=== PATIENT | male | born 1970 | race Caucasian/White ===

== ENCOUNTER 2018-08-01 17:10 | Outpatient (REF) | payer SELFPAY ==
[2018-08-01 19:44] LABS: Anion Gap 13.3 mmol/L (3-11); BUN 7 mg/dL (7-18); CO2 25.7 mmol/L (21.0-32.0); CREATININE 0.91 mg/dL (0.70-1.30); Calcium 9.4 mg/dL (8.5-10.1); Chloride 96 mmol/L (98-107); Glucose 98 mg/dL (70-100); Potassium 3.2 mmol/L (3.5-5.1); Sodium 135 mmol/L (136-145)
== END 2018-08-01 17:30 ==
LOC: NCHCN 17:10
PROVIDERS: PCP Physician Assistant; Visit Provider Physician Assistant Medical
DX: I10 Essential (primary) hypertension (principal)
CPT/HCPCS: 80048

== ENCOUNTER 2019-06-12 11:45 | Outpatient (REF) | payer SELFPAY ==
[2019-06-12 19:05] LABS: ALT 74 U/L (16-63); AST 39 U/L (15-37); Albumin 3.8 g/dL (3.4-5.0); Alkaline Phosphatase 92 U/L (46-116); Anion Gap 8.2 mmol/L (3-11); BUN 13 mg/dL (7-18); Bilirubin, Total 0.7 mg/dL (0.2-1.0); CO2 28.8 mmol/L (21.0-32.0); CREATININE 1.26 mg/dL (0.70-1.30); Calcium 9.3 mg/dL (8.5-10.1); Chloride 101 mmol/L (98-107); Glucose 151 mg/dL (70-100); Potassium 4.1 mmol/L (3.5-5.1); Sodium 138 mmol/L (136-145); Total Protein 7.5 g/dL (6.4-8.2)
== END 2019-06-12 12:05 ==
LOC: NCHCO 11:45
PROVIDERS: PCP Physician Assistant; Visit Provider Internal Medicine
DX: K76.0 Fatty (change of) liver, not elsewhere classified (principal); I10 Essential (primary) hypertension; E87.6 Hypokalemia
CPT/HCPCS: 80053

== ENCOUNTER 2019-06-27 11:51 | Outpatient (REF) | payer SELFPAY ==
[2019-06-27 19:22] LABS: Glucose 124 mg/dL (70-100)
[2019-06-27 19:58] LABS: Hemoglobin A1C 6.9 % (4.5-6.2)
== END 2019-06-27 12:11 ==
LOC: NCHCN 11:51
PROVIDERS: PCP Physician Assistant; Visit Provider Internal Medicine
DX: R73.9 Hyperglycemia, unspecified (principal)
CPT/HCPCS: 82947; 83036

== ENCOUNTER 2020-02-26 21:41 | Outpatient (REF) | payer SELFPAY ==
[2020-02-26 19:21] LABS: ALT 42 U/L (16-63); AST 32 U/L (15-37); Alkaline Phosphatase 93 U/L (46-116); BUN 14 mg/dL (7-18); Bilirubin, Total 0.4 mg/dL (0.2-1.0); CREATININE 0.94 mg/dL (0.70-1.30); Calcium 9.2 mg/dL (8.5-10.1); Chloride 98 mmol/L (98-107); Glucose 110 mg/dL (74-106); Sodium 135 mmol/L (136-145)
[2020-02-26 19:37] LABS: Calculated LDL 110 mg/dL (<100); Cholesterol 204 mg/dL (<200); HDL Cholesterol 48 mg/dL (40-60); Triglyceride 234 mg/dL (<150)
== END 2020-02-26 22:01 ==
LOC: NCHCN 21:41
PROVIDERS: PCP Physician Assistant; Visit Provider Nurse Practitioner Family
DX: I10 Essential (primary) hypertension (principal); E78.5 Hyperlipidemia, unspecified; E11.9 Type 2 diabetes mellitus without complications
CPT/HCPCS: 80053; 80061; 83036

== ENCOUNTER 2020-10-14 14:56 | Outpatient (REF) | payer OTHER, SELFPAY ==
[2020-10-15 13:41] LABS: COVID-19 RT-PCR UVMMC Result Negative (Negative)
== END 2020-10-14 14:57 | disposition home or self-care (01) ==
LOC: NCHCN 14:56
PROVIDERS: PCP Physician Assistant; Visit Provider Internal Medicine
DX: Z20.822 Contact with and (suspected) exposure to COVID-19 (principal)
CPT/HCPCS: U0003

== ENCOUNTER 2021-10-27 16:05 | Outpatient (REF) | payer OTHER, SELFPAY ==
[2021-10-27 20:17] LABS: ALT 64 U/L (16-63); AST 42 U/L (15-37); Albumin 4.1 g/dL (3.4-5.0); Alkaline Phosphatase 80 U/L (46-116); Anion Gap 10.4 mmol/L (3-11); BUN 9 mg/dL (7-18); Bilirubin, Total 0.5 mg/dL (0.2-1.0); CO2 26.6 mmol/L (21.0-32.0); CREATININE 0.9 mg/dL (0.70-1.30); Calcium 9.2 mg/dL (8.5-10.1); Chloride 93 mmol/L (98-107); Glucose 103 mg/dL (74-106); Potassium 3.2 mmol/L (3.5-5.1); Sodium 130 mmol/L (136-145); Total Protein 8.2 g/dL (6.4-8.2)
== END 2021-10-27 16:06 | disposition home or self-care (01) ==
LOC: NCHCN 16:05
PROVIDERS: PCP Physician Assistant; Visit Provider Internal Medicine
DX: I10 Essential (primary) hypertension (principal); E11.9 Type 2 diabetes mellitus without complications; K76.0 Fatty (change of) liver, not elsewhere classified; Z00.00 Encounter for general adult medical examination without abnormal findings
CPT/HCPCS: 80053

== ENCOUNTER 2022-10-21 18:11 | Outpatient (REF) | payer OTHER, SELFPAY ==
[2022-10-21 20:42] LABS: Anion Gap 9.5 mmol/L (3-11); BUN 5 mg/dL (7-18); CO2 26.5 mmol/L (21.0-32.0); Calcium 9.2 mg/dL (8.5-10.1); Chloride 97 mmol/L (98-107); Estimated GFR 91.12 (mL/min/1.73m2); Glucose 91 mg/dL (74-106); Potassium 3.9 mmol/L (3.5-5.1); Sodium 133 mmol/L (136-145)
== END 2022-10-21 18:12 | disposition home or self-care (01) ==
LOC: NCHCN 18:11
PROVIDERS: PCP Physician Assistant; Visit Provider Internal Medicine
DX: I10 Essential (primary) hypertension (principal); E66.9 Obesity, unspecified; Z00.00 Encounter for general adult medical examination without abnormal findings
CPT/HCPCS: 80048; 83036

== ENCOUNTER 2022-10-23 17:30 | Outpatient (REF) | payer OTHER, SELFPAY ==
[2022-10-23 19:31] LABS: Sodium, Urine 107 mmol/L
[2022-10-25 16:58] LABS: Osmolality, Urine 400 mOsm/kg (150-1150)
== END 2022-10-23 17:31 | disposition home or self-care (01) ==
LOC: NCHCN 17:30
PROVIDERS: PCP Physician Assistant; Visit Provider Internal Medicine
DX: E87.1 Hypo-osmolality and hyponatremia (principal)
CPT/HCPCS: 83935; 84300

== ENCOUNTER 2023-05-12 11:51 | Outpatient (REF) | payer OTHER, SELFPAY ==
[2023-05-12 20:56] LABS: Bacteria Negative HPF (Negative); C & S Indicated? No; Crystals Negative HPF (Negative); Epithelial Cells Negative HPF (Negative); Mucus Negative (Negative); RBC 0-2 HPF (0-2); WBC 0-2 HPF (0-5)
== END 2023-05-12 11:52 | disposition home or self-care (01) ==
LOC: NCHCN 11:51
PROVIDERS: PCP Physician Assistant; Visit Provider Physician Assistant
DX: R31.21 Asymptomatic microscopic hematuria (principal)
CPT/HCPCS: 81015

== ENCOUNTER 2024-04-28 18:37 | Outpatient (REF) | payer SELFPAY ==
--- OUTSIDE RECORDS SUMMARY | 2024-04-28 18:47 | XMS_ITS | Clinical Summary ---
Author Organization [facility] Address [address] [place] [address] Care Team Providers Care Log Cutter Name Role Phone Marquez Freed MD Primary Care Provider Social History Tobacco Use Types Packs/Day Years Used Date Smoking Tobacco: Never Assessed Sex and Gender Information Value Date Recorded Sex Assigned at Not on file Gender Identity Not on file Sexual Orientation Not on file Plan of Treatment Health Maintenance Due Date Last Done Comments Hepatitis C Screen 1971 Hepatitis B Vaccine (1 of 3 - 19+ 3-dose series) 09/05 COVID-19 Vaccine ( season) 2023 Care Teams Log Cutter Relationship Specialty Start Date End Date Marquez Freed MD [address] [place] [address] PCP - General 07/13/15
--- OUTSIDE RECORDS SUMMARY | 2024-04-28 18:47 | XMS_ITS | Clinical Summary ---
Author Organization [facility] Address [facility] [place] [address] Care Team Providers Care Steel Wool Machine Operator Name Role Phone Marquez Freed MD Primary Care Provider [phone] Allergies Active Allergy Reactions Criticality Noted Date Comments Sulfa (Sulfonamide Antibiotics) Medium Medications Medication Sig Dispensed Refills Start Date End Date Status citalopram (CELEXA) 20 mg tablet Take 20 mg by mouth nightly. Active losartan (COZAAR) 50 mg tabletIndications:h ypertension Take 100 mg by mouth daily. Indications: Hypertension Active verapamil (COVERA HS) 240 mg 24 hr tablet Take 240 mg by mouth nightly. Active hydroCHLOROthiazide (HYDRODIURIL) 25 mg Tablet Take 12.5 mg by mouth daily. Active Active Problems Problem Noted Date Diagnosed Date Chronic pain of both shoulders 10/19/2017 HTN (hypertension) 02/09/2013 Hand pain 12/29/2012 Follow-up examination follow ing surgery, right shoulder arhtroscopy 04/09/2011 Bilateral carpal tunnel syndrome 07/01/2010 Immunizations Name Administration Dates Next Due Influenza (Novel V1H4-14) Injectable 10/17/2009 Influenza Trivalent w/Preservative 07/06/2011 Influenza Vaccine, Whole 10/17/2009 Family History Medical History Relation Comments Cancer Neg Hx Social History Tobacco Use Types Packs/Day Years Used Date Smoking Tobacco: Never Smokeless Tobacco: Never Comments:quit chewing tobacc o 7-8yrs. ago Alcohol Use Standard Drinks/Week Comments Yes 7 (1 standard drink = 0.6 oz pur e alcohol) daily Sex and Gender Information Value Date Recorded Sex Assigned at Not on file Gender Identity Not on file Sexual Orientation Not on file Last Filed Vital Signs Vital Sign Reading Time Taken Comments Blood Pressure 126/75 11/15/2017 12:57 PM EDT Pulse 65 11/15/2017 12:57 PM EDT Temperature 36.5 ??C (97.7 ??F) 11/04/2017 12:[address] Respiratory Rate 16 11/04/2017 12:07 PM EST Oxygen Saturation 97% 11/04/2017 12:07 PM EST Inhaled Oxygen Concentration - - Weight 96.2 kg (212 lb) 11/15/2017 12:57 PM EDT Height 167.6 cm (5' 6) 11/15/2017 12:57 PM EDT Body Mass Index 34.22 11/15/2017 12:57 PM EDT Plan of Treatment Health Maintenance Due Date Last Done Comments CT Colonography 1971 Colonoscopy 1971 Colorectal Cancer Screening 1971 FIT DNA 1971 FIT 1971 Sigmoidoscopy (10 year) with FIT yearly 1971 Sigmoidoscopy 1971 HIV screen 1989 Hepatitis C Screening 1989 Lipid Screening 1989 Hepatitis B vaccine (0-59 yrs) (1) 1990 Tdap adult 1990 Tetanus vaccine 1990 Zoster vaccine (1 of 2) 2021 Covid-19 Vaccine (1 - 2022-24 season) 2023 Influenza (Flu) vaccine (1 o f 1 - Influenza standard series) 05/07/2024 07/06/2011, 10/17/2009, 10/17/2009 Advance Directives * Full Code (Latest Code Status on File) Date Activated Date Inactivated Comments 03/16/2012 9:17 AM 03/16/2012 12:23 PM Question Answer Comments Order Status: Initial Order Does patient have decision m aking capacity? Yes, Order is based on Patients wishes. * Full Code Date Activated Date Inactivated Comments 09/10/2011 12:13 PM 03/16/2012 9:17 AM Question Answer Comments Does patient have decision m aking capacity? Yes, Order is based on Patients wishes. Care Teams Steel Wool Machine Operator Relationship Specialty Start Date End Date Marquez Freed MD [address] [place] [id number] PCP - General 10/07/10
--- OUTSIDE RECORDS SUMMARY | 2024-04-28 18:47 | XMS_ITS | Encounter Summary ---
Author Organization [facility] Address [facility] [place] [address] Care Team Providers Care Title I Instructional Assistant Name Role Phone Marquez Freed MD Primary Care Provider [phone] Reason for Visit * Reason Onset Date Comments Letter Request From Patient 11/29/2017 Encounter Details Date Type Department Care Team (Late st Contact Info) Description 11/29/2017 Telephone [place] [id number] Otis Pritchard MD [facility] [place] [address] Letter Request From Patient Social History Tobacco Use Types Packs/Day Years Used Date Smoking Tobacco: Never Smokeless Tobacco: Never Comments:quit chewing tobacc o 7-8yrs. ago Alcohol Use Standard Drinks/Week Comments Yes 7 (1 standard drink = 0.6 oz pur e alcohol) daily Sex and Gender Information Value Date Recorded Sex Assigned at Not on file Gender Identity Not on file Sexual Orientation Not on file documented as of this encounter Miscellaneous Notes * Telephone Encounter - Chelsey Jesus - 11/29/2017 3:51 PM EDT Letter created, stamped and mailed. * Telephone Encounter - Grisel Herrera - 11/29/2017 2:04 PM EDT Provider last seen by? What type of letter is needed? Patient needs a letter stating he came back into care with Dr. Pritchard for his left shoulder for a pre existing condition. Patient was seen on 11.24.17 for his left shoulder. This is a workers comp injury, and workers comp will not pay unless Dr. Pritchard states this isrelated to surgery from 03.24.11. This is through [facility] - initial DOI 03/22/2009 To what address/fax#?mailed to patient's home address: [address] [place] [id number] To whose attention?Hansa, from [facility] documented in this encounter Plan of Treatment Not on file documented as of this encounter Visit Diagnoses Not on filedocumented in this encounter Care Teams Title I Instructional Assistant Relationship Specialty Start Date End Date Marquez Freed MD [address] [place] [id number] PCP - General 10/07/10 documented as of this encounter
--- OUTSIDE RECORDS SUMMARY | 2024-04-28 18:47 | XMS_ITS | Encounter Summary ---
Author Organization [facility] Address [address] [place] [address] Care Team Providers Care Tobacco Sweeper Name Role Phone Unavailable Primary Care Provider Unavailabl e Encounter Details Date Type Department Care Team (Late st Contact Info) Description 05/26/2002 7:43 EDT Hospital Encounter [facility] [address] [place], [place] [address] Sabrina Carcamo MD [address] [place] [address] [address] [place] [address] Social History Tobacco Use Types Packs/Day Years Used Date Smoking Tobacco: Never Assessed Sex and Gender Information Value Date Recorded Sex Assigned at Not on file Gender Identity Not on file Sexual Orientation Not on file documented as of this encounter Plan of Treatment Not on file documented as of this encounter Visit Diagnoses Not on filedocumented in this encounter
--- OUTSIDE RECORDS SUMMARY | 2024-04-28 18:47 | XMS_ITS | Encounter Summary ---
Author Organization [facility] Address [address] [place] [address] Care Team Providers Care Tank Truck Mechanic Name Role Phone Marquez Freed MD Primary Care Provider [phone] Encounter Details Date Type Department Care Team (Late st Contact Info) Description 10/24/2022 Lab Requisition [facility] Pathology & Laboratory Medicine - [address] [address] Outr Resulting Lab, Provider Social History Tobacco Use Types Packs/Day Years Used Date Smoking Tobacco: Never Assessed Sex and Gender Information Value Date Recorded Sex Assigned at Not on file Gender Identity Not on file Sexual Orientation Not on file documented as of this encounter Plan of Treatment Not on file documented as of this encounter Procedures Procedure Name Priority Date/Time Associated Diagnosis Comments OSMOLALITY, URINE Routine 10/23/2022 8:35 EST documented in this encounter Results * OSMOLALITY, URINE (10/23/2022 8:35 EST) Osmolality, Urine 400 150 - 1,150 mOsm/kg 10/25/2022 16:54 EST [facility] Urine URINE / Unknown 10/23/2022 8 :35 EST 10/25/2022 16:26 EST Provider Outr Resulting Lab URINALYSIS O RDERABLES [facility] [address] [place] [address] documented in this encounter Visit Diagnoses Not on filedocumented in this encounter Care Teams Tank Truck Mechanic Relationship Specialty Start Date End Date Marquez Freed MD [address] [place] [address] PCP - General 07/13/15 documented as of this encounter
--- OUTSIDE RECORDS SUMMARY | 2024-04-28 18:47 | XMS_ITS | Encounter Summary ---
Author Organization [facility] [address] Care Team Providers Care Blacksmith Apprentice Name Role Phone Marquez Freed MD Primary Care Provider [phone] Reason for Visit * Auth/Cert Specialty Diagnoses / Procedures Referred By Faustino t Referred To Contact Diagnoses CHRONIC PAIN OF BOTH SHOULDERS. LEFT SHOULDER PAIN AND WEAKNESS, EVALUATING FOR ROTATOR CUFF TEAR. Procedures PRG UNLISTED MRI PROCEDURE MRI WITH ANESTHESIA (WRVU *) Referral ID Status Reason Start Date Expiration Date Visits Re quested Visits Authorized [id number] 1 1 Encounter Details Date Type Department Care Team (Late st Contact Info) Description 11/04/2017 10:31 AM [place] [address] Eliu Duran MD [facility] [place] [address] Bhavani Gallegos CRNA [address] [place] [address] Anesthesia Record Procedure Summary Procedure Name Responsible Anesthesiologist Anesthesia Start Time Anesthesia Stop Time MRI WITH ANESTHESIA (WRVU *) (Shoulder) Eliu Duran MD 11/04/17 1031 11/04/17 1213 Events Date Time Event Comment 11/04/2017 1013 1031 AN Verify 1031 Start 1051 An Start Data 1100 Anesthesia Ready 1141 Quick Note EDH connection issues. Vitals manually entered from 4110-1030. Patient stable 1205 an stop data 1210 Recovery or ICU Handoff Nicolette ent care was transferred to the destination unit staff after review of the patient's medical history, current anesthetic/surgical status and plan, according to the Provider Handoff Checklist. 1213 Stop Meds Name Total lidocaine (PF)(cardiac) 2% IV syringe 60 mg Propofol 50 mg Propofol INF 619.01 mg Ketamine 10 mg/mL 90 mg Lactated Ringers 1,000 mL * Agents Name O2 O2 Auxiliary Flowmeter 1 * Blood No blood administrations on file. Lines, Drains, and Airways Type Details Placement Removal (RETIRED) Non-Surgical Airway Nasopharyngeal Size: 32 Fr 04/06/13 1400 by Aurelia Pan CRNA Supraglottic Oral Airway: 100 mm (5) 11/04/17 1119 by Incision shoulder; 05/04/22 ( LDA cleanup utility RA#[id number]); 1715 (LDA cleanup utility RA#[id number]) 03/24/11 0815 by 05/04/22 1715 by Natanael Dhillon Incision shoulder; 05/04/22 ( LDA cleanup utility RA#[id number]); 1715 (LDA cleanup utility RA#[id number]) 09/10/11 0817 by 05/04/22 1715 by Natanael Dhillon Incision 03/16/12; wrist; (LDA cleanup utility RA#[id number]); 1715 (LDA cleanup utility RA#[id number]) 03/16/12 0000 by Ksenia Cullen RN 05/04/22 1715 by Natanael Dhillon Incision 06/08/12; palm; 04/07 05/28 (LDA cleanup utility RA#[id number]); 1715 (LDA cleanup utility RA#[id number]) 06/08/12 0000 by Allison Barbour RN 05/04/22 1715 by Natanael Dhillon (RETIRED) Peripheral IV Line - Single Lumen 11/04/17; 1106; median vein (underside of arm), left; 20 gauge; 11/04/17; 1238 11/04/17 1106 by Bhavani Gallegos I PLATING DEPARTMENT HELPER 11/04/17 1238 by Kimberly Erickson RN documented in this encounter Social History Tobacco Use Types Packs/Day Years Used Date Smoking Tobacco: Never Smokeless Tobacco: Never Comments:quit chewing tobacc o 7-8yrs. ago Alcohol Use Standard Drinks/Week Comments Yes 67 (1 standard drink = 0.6 oz pu re alcohol) daily Sex and Gender Information Value Date Recorded Sex Assigned at Not on file Gender Identity Not on file Sexual Orientation Not on file documented as of this encounter OR Notes * Anesthesia Postprocedure Evaluation - Eliu Duran MD - 11/04/2017 12:51 PM EST [facility] Department of Anesthesiology Post-procedure Note Patient: Dale [place] Procedure Summary Date Anesthesia Start Anesthesia Stop Room / Location 11/04/17 1031 1213 [facility] / [facility] Procedure Diagnosis Surgeon Responsible Provider MRI WITH ANESTHESIA (WRVU *) (N/A Shoulder) (CHRONIC PAIN OF BOTH SHOULDERS. LEFT SHOULDER PAIN ANDWEAKNESS, EVALUATING FOR ROTATOR CUFF TEAR. ) RESOURCE, ANESTHESIA-Eliu Fitzgerald MD All Anesthesia Providers: Anesthesiologist: Eliu Duran MD PLATING DEPARTMENT HELPER: Bhavani Gallegos CRNA Most Recent Vitals: 11/04/17 1207 BP: (!) 136/98 Pulse: 77 Resp: 16 Temp: 36.5 ??C (97.7 ??F) SpO2: 97% Pain 0 (11/04/17 1207) Patient Location: PACU/[facility] Level of Consciousness: Awake and Alert Pain Management: Satisfactory Analgesia PONV: None Cardiovascular Status: At Baseline and Hemodynamically Stable Respiratory Status: At Baseline and Room Air Postoperative Fluid Status: Intravascular EUvolemia Possible Anesthetic Complications: NONE apparent at time of evaluation Final Primary Anesthesia Type: MAC (The anesthetic type performed was the same as planned.) Comments: ELIU DURAN MD * Anesthesia Preprocedure Evaluation - Eilu Duran MD - 11/04/2017 10:12 AM EST Pre-Anesthesia Evaluation for: Dale meade 47 y.o. male. Procedure(s): MRI WITH ANESTHESIA (WRVU *) Patient Active Problem List Diagnosis ??? Chronic pain of both shoulders ??? HTN (hypertension) ??? Hand pain ??? Follow-up examination following surgery, right shoulder arhtroscopy ??? Bilateral carpal tunnel syndrome Past Medical History: Diagnosis Date ??? Fatty liver ??? Hypertension Past Surgical History: Procedure Laterality Date ??? PRG UNLISTED MRI PROCEDURE 04/06/2013 MRI WITH ANESTHESIA performed by Melissa Anesthesia-Renetta at [facility] ??? PRO PARTIAL REMOVAL, CLAVICLE 03/24/2011 CLAVICULECTOMY, PARTIAL performed by SOFIE BECKFORD at [facility] ??? PRO PARTIAL REMOVAL, CLAVICLE 09/10/2011 CLAVICULECTOMY, PARTIAL performed by SOFIE BECKFORD at [facility] ??? PRO REVISE MEDIAN N/CARPAL TUNNEL SURG 03/16/2012 MEDIAN NERVE DECOMPRESSION (CARPAL TUNNEL RELEASE) performed by SOFIE BECKFORD at [facility] ??? PRO REVISE MEDIAN N/CARPAL TUNNEL SURG 06/08/2012 MEDIAN NERVE DECOMPRESSION (CARPAL TUNNEL RELEASE) performed by SOFIE BECKFORD at [facility] ??? PRO SHLDR ARTHROSCOP, EXTEN DEBRIDE 03/24/2011 ARTHROSCOPY SHOULDER DEBRIDEMENT EXTENSIVE performed by SOFIE BECKFORD at [facility] ??? PRO SHLDR ARTHROSCOP, EXTEN DEBRIDE 09/10/2011 ARTHROSCOPY SHOULDER DEBRIDEMENT EXTENSIVE performed by SOFIE BECKFORD at [facility] ??? PRO SHLDR ARTHROSCOP, PART ACROMIOPLAS 03/24/2011 ARTHROSCOPY SHOULDER, SUBACROMIAL DECOMPRESSION performed by SOFIE BECKFORD at [facility] ??? PRO SHLDR ARTHROSCOP, PART ACROMIOPLAS 09/10/2011 ARTHROSCOPY SHOULDER, SUBACROMIAL DECOMPRESSION performed by SOFIE BECKFORD at [facility] Social History Substance Use Topics ??? Smoking status: Never Smoker ??? Smokeless tobacco: Never Used Comment: quit chewing tobacco 7-8yrs. ago ??? Alcohol use 40.2 oz/week 60 Cans of beer, 7 Shots of liquor per week Comment: daily History Drug Use No Allergies Allergen Reactions ??? Sulfa (Sulfonamide Antibiotics) Medications: MAR and/or home medications have been reviewed. Physical Exam: Most Recent Vitals: 11/04/17 0953 BP: (!) 151/98 Pulse: 74 Resp: 16 Temp: 37 ??C (98.6 ??F) SpO2: 94% Body mass index is 33.52 kg/(m^2). Weight: 97.1 kg (214 lb) Airway Assessment: Mallampati: II TM distance: >3 FB Neck ROM: full Cardiovascular Assessment: Pulmonary Assessment: Dental Assessment: Misc Assessment: Anesthesia Plan: ASA 2 MAC, with a(n) intravenous induction Region - Other Informed Consent: Anesthetic plan and risks discussed with patient. Plan discussed with PLATING DEPARTMENT HELPER. PAT Staff Note documented in this encounter Plan of Treatment Not on file documented as of this encounter Visit Diagnoses Not on filedocumented in this encounter Administered Medications Inactive Administered Medications - up to 3 most recent administrations Medication Order MAR Action Action Date Dose Rate Site ketamine (KETALAR) 10 mg/mL bolus injection (Anesthesia) PRN, Starting on Roz 11/04/17 at 1118, Until Roz 11/04/17 at 1219, Anesthesia Intra-op Given 11/04/2017 11:45 AM EST 40 mg Given 11/04/2017 11:18 AM EST 50 mg lactated Ringers infusion CONTINUOUS PRN, Starting on Roz 11/04/17 at 1031, Until Roz 11/04/17 at 1219, Anesthesia Intra-op New Bag 11/04/2017 10:31 AM EST lidocaine (PF) (XYLOCAINE) 100 mg/5 mL (2 %) injection PRN, Starting on Roz 3 at 1055, Until Roz 11/04/17 at 1219, Anesthesia Intra-op, Routine Given 11/04/2017 10:55 AM EST 60 mg propofol (DIPRIVAN) 10 mg/mL bolus injection (Anesthesia) PRN, Starting on Roz 3 at 1145, Until Roz 3 at 1219, Anesthesia Intra-op Given 11/04/2017 11:45 AM EST 50 mg propofol (DIPRIVAN) infusion CONTINUOUS PRN, Starting on Roz 11/04/17 at 1055, Until Roz 11/04/17 at 1219, Anesthesia Intra-op, Routine Rate/Dose Change 11/04/2017 11:31 AM EST 50 mcg/kg/min 29.1 mL/hr Rate/Dose Change 11/04/2017 11:20 AM EST 75 mcg/kg/min 43. 7 mL/hr Rate/Dose Change 11/04/2017 11:18 AM EST 100 mcg/kg/min 58 .3 mL/hr documented in this encounter Care Teams Blacksmith Apprentice Relationship Specialty Start Date End Date Marquez Freed MD [address] [place] [id number] PCP - General 10/07/10 documented as of this encounter
--- OUTSIDE RECORDS SUMMARY | 2024-04-28 18:47 | XMS_ITS | Encounter Summary ---
Author Organization [facility] Address [facility] [place] [address] Care Team Providers Care Cane Weigher Helper Name Role Phone Marquez Freed MD Primary Care Provider [phone] Reason for Visit * Reason Comments Bilateral Shoulder Pain Encounter Details Date Type Department Care Team (Late st Contact Info) Description 11/15/2017 1:00 PM EDT Office [place] [id number] Otis Pritchard MD [facility] [place] [address] Chronic left shoulder pain (Primary Dx); Carpal tunnel syndrome, bilateral Social History Tobacco Use Types Packs/Day Years [...] on file documented as of this encounter Last Filed Vital Signs Vital Sign Reading Time Taken Comments Blood Pressure 126/75 11/15/2017 12:57 PM EDT Pulse 65 11/15/2017 12:57 PM EDT Temperature - - Respiratory Rate - - Oxygen Saturation - - Inhaled Oxygen Concentration - - Weight 96.2 kg (212 lb) 11/15/2017 12:57 PM EDT Height 167.6 cm (5' 6) 11/15/2017 12:57 PM EDT Body Mass Index 34.22 11/15/2017 12:57 PM EDT documented in this encounter Progress Notes * Otis Pritchard MD - 11/15/2017 1:00 PM EDT Otis Pritchard dictating orthopedic consultation on Dale Quiroga returns for recheck of his left shoulder. Further discussion with him reveals that he has increased pain when he attempts abduction. 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 It is very difficult for him to do any overhead activities with his left arm.He also has intermittent numbness in his left hand. 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 Examination today: Neurologic exam: Neck no midline tenderness decreased range of motion negative Spurling's test no evidence of myelopathy decreased sensibility median nerve distribution of both hands status post carpal tunnel releases. Musculoskeletal exam left shoulder: No pain at the AC joint. He does have subacromial pain. His total active elevation is 160?? but his abduction is limited to 100?? and painful. His external rotation is 45??. 5 out of 5 strength with supraspinatus, infraspinatus, subscapularis testing. He does have positive Yergason's positive Speed. Left elbow wrist and hand are nontender again he status post left carpal tunnel release with decreased sensibility in the median nerve distribution. Vascularity intact. I reviewed the x-rays and MRI of his left shoulder. They reveal partial- thickness supraspinatus andsubscapularis tendon tendons. He also has significant biceps tendinopathy. He also has an element of early glenohumeral arthritis. Plan we long discussion regarding the current situation. Reviewed his history, clinical examination, and studies. At this point he does not want to take nonsteroidal anti-inflammatory medications because of potential hepatic interaction. Thus we discussed as another option a left shoulder glenohumeral steroid injection. He would like to try that and we will place the order today. In addition he will obtain a cock-up splint for his left hand is he does not want to consider reexploration of his left median nerve at this point. He is going to see how he does over the next 2-3 months. If his left shoulder and/or his left hand did not improve to his satisfaction he will call us and return. At that point I would anticipate either proceeding with a left shoulder arthroscopy or a left median nerve decompression for recurrent median nerve entrapment. Thank you documented in this encounter Plan of Treatment Not on file documented as of this encounter Results * XR Fluoro Guided Joint Injection Large Left (11/30/2017 10:29 AM EDT) Anatomical Region Laterality Modality Left Radio Fluoroscop y Impressions 11/30/2017 12:31 PM EDT Uneventful left shoulder glenohumeral joint injection under fluoroscopy. Resident/Fellow: None Attending: There was no attending present for this procedure Procedure performed by Gerson Roberson APRN Narrative 11/30/2017 12:31 PM EDT HISTORY: PAIN,POST-TRAUMATIC OA LEFT SHOULDER GLENOHUMERAL JOINT INJECTION UNDER FLUOROSCOPY TECHNIQUE: After an extensive conversation with the patient regarding risks and benefits, oral and written consent were obtained.? A pre- procedural time-out was performed, including review of the patient's relevant electronic medical record and allergies, as per [facility] protocol. The patient was placed supine on the fluoroscopic table. ??The skin overlying the left anterior shoulder was prepped and draped in the usual aseptic manner. 1% Lidocaine was used to achieve local anesthesia. Under fluoroscopic guidance, 22 gauge 3.5 spinal needle was advanced into the joint space. ??Small amount of air was injected to document needle placement. ??A mixture of Ropivacaine and triamcinolone acetonide was injected. All needles removed at end of procedure. FINDINGS: 1. ??Small amount of injected air in the left shoulder glenohumeral joint space. 2. ??PAIN SCORE: ??Before: 5/10 ??After: 5/10 3. Fluoroscopy time: 0.12 minutes 4. Medications: ??Lidocaine 1% - <5 ml, for subcutaneous anesthesia ??Ropivacaine HCL ??0.5% -3ml ??Triamciolone Acetonide ??- 40 mg COMPLICATIONS: ??None immediate. POST-PROCEDURE CARE: Information regarding monitor of infection, post- procedural pain and management of steroid flare were reviewed with patient. Procedure Note Gesron Roberson APRN - 11/30/2017 HISTORY: PAIN,POST-TRAUMATIC OA LEFT SHOULDER GLENOHUMERAL JOINT INJECTION UNDER FLUOROSCOPY TECHNIQUE: After an extensive conversation with the patient regarding risks andbenefits, oral and written consent were obtained.? A pre- procedural time-out was performed, including review of the patient's relevant electronic medicalrecord and allergies, as per [facility] protocol. The patient was placed supine on the fluoroscopic table. The skinoverlying the left anterior shoulder was prepped and draped in the usual aseptic manner.1% Lidocaine was used to achieve local anesthesia. Under fluoroscopicguidance, 22 gauge 3.5 spinal needle was advanced into the joint space. Small amountof air was injected to document needle placement. A mixture of Ropivacaine and triamcinolone acetonide was injected. All needles removed at end ofprocedure. FINDINGS: 1. Small amount of injected air in the left shoulder glenohumeral jointspace. 2. PAIN SCORE: Before: 5/10 After: 5/10 3. Fluoroscopy time: 0.12 minutes 4. Medications: Lidocaine 1% - <5 ml, for subcutaneous anesthesia Ropivacaine HCL 0.5% -3ml Triamciolone Acetonide - 40 mg COMPLICATIONS: None immediate. POST-PROCEDURE CARE: Information regarding monitor of infection, post- procedural pain and management of steroid flare were reviewed withpatient. IMPRESSION Uneventful left shoulder glenohumeral joint injection under fluoroscopy. Resident/Fellow: None Attending: There was no attending present for this procedure Procedure performed by Gerson Roberson APRN 12:31 PM Otis Pritchard MD IMG FLUORO ORDERABLE S documented in this encounter Visit Diagnoses Diagnosis Chronic left shoulder pain- Primary Pain in joint, shoulder region Carpal tunnel syndrome, bilateral Carpal tunnel syndrome Chronic left shoulder pain Pain in joint, shoulder region documented in this encounter Care Teams Cane Weigher Helper Relationship Specialty Start Date End Date Marquez Freed MD [address] [address] PCP - General 10/07/10 documented as of this encounter
--- OUTSIDE RECORDS SUMMARY | 2024-04-28 18:47 | XMS_ITS | Data Portability ---
Author Organization [place] [facility] Address [address] [place] [address] Care Team Providers Care Manager Php Name Role Phone NADIA FREED Primary Care Provider Assessment No assessment recorded. 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 09:00A M Not available Not available Not available Annual Wellness Exam 2024 10:00A M Not available Not available Not available Lab influenza virus A + B + SARS-CoV- 2 (COVID19) Ag panel, rapid IA, upper respirato ry specimen [email or web address] [place] [address], [address] [place] [address] [address], [place], [address], 09/21/2023 10:05:00 PSA, serum or plasma 2023 024 [email or web address] [facility] (Registration ), [address] [place] [address] [place], [address], 04/28/2024 16:11:51 BMP, serum or plasma 2023 024 [email or web address] [facility] (Registration ), [address] [place] [address] [place], [address], 04/28/2024 16:11:51 hemoglobi n A1C, fingersti ck [email or web address], [address] [place] [address] [facility] [address], [place], [address], 04/28/2024 15:07:53 ALT (alanine aminotran sferase), serum or plasma [email or web address] [facility] (Registration ), [address] [place] [address] [place], [address], 04/28/2024 16:11:51 CK (creatine kinase), total, serum [email or web address] [facility] (Registration ), [address] [place] [address] [place], [address], 04/28/2024 16:11:51 lipid panel, serum [email or web address] [facility] (Registration ), [address] [place] [address] [place], [address], 04/28/2024 16:11:51 Referral None recorded. Procedures None recorded. Surgeries None recorded. Imaging None recorded. Medication Orders amoxicill in 875 mg tablet [address], [address], [place], [place], [id number], 02/15/2024 14:30:56 benzonata te 100 mg capsule [address], [address], [place], [place], [id number], 02/15/2024 14:31:08 tobramyci n 0.3 %-dexamet hasone 0.1 % eye drops,[facility] 2023 024 [facility] [address], [address] [place] [address], [address], 04/28/2024 15:02:15 Patient TargetsNo targets recorded. Patient Instructions Encounter Date Encounter Id Patient Instructions Last Modified By Organization Details Last Modified Time 09/21/2023 [id number] Push fluids take it easy, use your flonase and try the benzonatate for the cough. Start the antibiotic today. If no improvement or feeling worse please return to the [place] [id number] Not available 09/21/2023 09:56:45 Reason for Referral None Reported. Results Created Date Observation Date Name Description Value Unit Range Abnormal Flag LastModifiedBy Organization Detail LastModifiedTime 09/21/19 24 09/21/2023 influ sergo virus A + B + SARS- CoV-2 (COVI D19) Ag panel , rapid IA, upper respi rator y speci men Influenza A negati ve Not Available [address] [address], [place], [address], 09/21/2023 09:38:55 09/21/19 24 09/21/2023 influ sergo virus A + B + SARS- CoV-2 (COVI D19) Ag panel , rapid IA, upper respi rator y speci men Influenza B negati ve Not Available [facility] [address] [address], [place], [address], 09/21/2023 09:38:55 09/21/19 24 09/21/2023 influ sergo virus A + B + SARS- CoV-2 (COVI D19) Ag panel , rapid IA, upper respi rator y speci men SARS-COV-2 negati ve Not Available [address] [address], [place], [address], 09/21/2023 09:38:55 04/28/20 24 04/28/2024 hemog lobin A1C, finge rstic k hemoglobin A1C 6.6 % <5.7 Not Available [address] [address], [place], [address], 04/28/2024 14:35:17 Result Notes None recorded. Problems Name Status Onset Date Resolution Date Notes Provider Name and Address Organization Details Recorded Time Hyperlipidemi a Active 2001 Problem Code: E78.5; Problem Code Type: ICD-10; Not Available [facility] 3 05:24:17 Shoulder joint pain Active 2005 Problem Code: M25.519; Problem Code Type: ICD-10; Not Available [facility] 3 05:24:17 Essential hypertension Active 201003/25/2023 - Comments only - Nadia Freed MD - Inadequate control though there has been some improvement. I think he needs to be back on the thiazide. He did not tolerate chlorthalidon e but hydrochloroth iazide may be just enough. He has a DOT physical coming up. He has a degree of whitecoat hypertension and has legitimate concerns about failing the DOT because of this. I am recommending he take a dose of beta-lukas on that day only. In general I do not think you will tolerate the beta-blockers on a regular basis due to fatigue. He should continue to keep a record and get that to me. Problem Code: I10; Problem Code Type: ICD-10; Not Available [facility] 3 05:24:17 Gastro-esopha geal reflux disease with esophagitis Active 2005 Problem Code: K21.0; Problem Code Type: ICD-10; Not Available [facility] 3 05:24:17 History of musculoskelet al disease Active 2011 Not Available [facility] 3 05:24:17 Steatosis of liver Active 201410/28/2021 - Comments only - Nadia Freed MD - Continue efforts at calorie and alcohol reduction and recheck LFTs now. Problem Code: K76.0; Problem Code Type: ICD-10; Not Available [facility] 3 05:24:17 General symptom Active 201410/14/2020 - Comments only - Nadia Freed MD - Again recommended reduction Problem Code: R68.89; Problem Code Type: ICD-10; Not Available [facility] 3 05:24:17 Acute upper respiratory infection Completed 201510/31/2015 Problem Code: J06.9; Problem Code Type: ICD-10; Not Available [facility] 3 05:24:17 Pneumonia Completed 201608/12/2017 Problem Code: J18.9; Problem Code Type: ICD-10; Not Available [facility] 3 05:24:18 Chronic sinusitis Completed 201507/31/2016 Problem Code: J32.9; Problem Code Type: ICD-10; Not Available [facility] 3 05:24:18 Acute sinusitis Completed 201509/23/2016 Problem Code: J01.90; Problem Code Type: ICD-10; Not Available [facility] 3 05:24:18 Paresthesia Active 2016 Problem Code: R20.2; Problem Code Type: ICD-10; Not Available [facility] 3 05:24:18 Bronchitis Completed 201702/08/2018 12/28/2017 - Comments only - Dev Ocasio PA-C - Bronchitis with recent hemoptysis. Update chest x-ray. Start antibiotics and steroids. Has done well with this in the past. Recheck if not improving in 3-5 days. Vital signs stable. Problem Code: J40; Problem Code Type: ICD-10; Not Available [facility] 3 05:24:18 Hypokalemia Completed 201806/13/2019 Problem Code: E87.6; Problem Code Type: ICD-10; Not Available [facility] 3 05:24:18 Type 2 diabetes mellitus without complication Active 201806/15/2022 - Comments only - Nadia Freed MD - A1c down to nearly normal levels. He has changed his diet somewhat although he has not lost much weight. He can stop metformin now, though I warned him he will likely have to resume it in the future if he does not lose more weight. Problem Code: E11.9; Problem Code Type: ICD-10; Not Available [facility] 3 05:24:18 Adult health examination Active 201910/28/2021 - Comments only - Nadia Freed MD - He had his original 2 Covid shots but declines any boosters, declines all other vaccines now. Problem Code: Z00.00; Problem Code Type: ICD-10; Not Available [facility] 3 05:24:19 Obesity Active 201908/15/2020 - Comments only - Nadia Freed MD - Arrange biggest problem is deconditionin g and he is well aware of it. However he is tries to set out roadblocks anytime we talked about addressing this. Starts work early but is down by about 230 and he could make time to walk them. He has a treadmill and is willing to try that. I made out a progressive schedule and explained how to do appropriate warm up and cool down. I was worried about calf pain representing claudication but it is pretty clear that it does not. His pulses are quite brisk, and it should not take an hour or 2 for claudication and resolve once he stops walking. Problem Code: E66.9; Problem Code Type: ICD-10; Not Available [facility] 3 05:24:19 Rosacea Active 202010/14/2020 - Comments only - Nadia Freed MD - Discussion of various ways to manage different aspects of this. Recommend baby shampoo scrubs of the lids to reduce the crustiness. He does not care so much about the acting portion so I am not prescribing erythromycin at this time. Problem Code: L71.9; Problem Code Type: ICD-10; Not Available [facility] 3 05:24:19 Exposure to communicable disease Completed 202010/15/2020 10/14/2020 - Comments only - Nadia Freed MD - Nasal swab sent Problem Code: Z20.828; Problem Code Type: ICD-10; Not Available [facility] 3 05:24:19 Allergic rhinitis Active 202001/11/2023 - Comments only - Nadia Freed MD - Discussed trying a saline rinse including a small amount of one of the topical preps like fluticasone. However in the absence of more severe symptoms I do not think he needs to initiate this now. Problem Code: J30.9; Problem Code Type: ICD-10; Not Available [facility] 3 05:24:19 Dyspnea Active 202003/12/2021 - Comments only - Nadia Freed MD - Is worrisome to me that this is a relatively abrupt change for Dale. That makes me worry about the possibility of coronary disease although he does not have chest pain. EKG today normal, no signs of recent SC. Will refer him for stress testing. If his dyspnea continues I would also get PFTs; he has had enough occupational exposure to be some risk for silicosis. Problem Code: R06.09; Problem Code Type: ICD-10; Not Available [facility] 3 05:24:19 Injury of head Completed 202112/06/2021 12/05/2021 - Comments only - Joselin MANJARREZ - - pt refuses any imaging, discussed s/s to present to ER such as sudden headache, vision changes, n/v, gait abnormality or mental status changes - benign exam, suspect that he became hypotensive upon jumping out of bed quickly resulting in him passing out. advised for him to increase his water intake and move slowly when changing positions. he has been losing weight so he may end up needing to have his BP medication adjusted if he continues to struggle with feeling off balanced. His BP was well controlled today, not too low at all. Problem Code: S09.90xA; Problem Code Type: ICD-10; Not Available [facility] 3 05:24:19 Posterior rhinorrhea Active 202106/15/2022 - Comments only - Nadia Freed MD - He tried nearly everything. Taking loratadine regularly plus azelastine nasal spray. That dries out his nose but never seems to stop the postnasal drip. He does not have headache or severe sinus congestion. No hoarseness. Suspect that he has some chronic sinus inflammation and the sprays are getting out them. Symptoms are not bad enough for him to desire ENT referral or consideration of a Baker-Ulices. He does use a Maria Isabel pot at times and I am can have him try putting the azelastine into that, 4 sprays in the patch which he then uses on both sides. Problem Code: R09.82; Problem Code Type: ICD-10; Not Available [facility] 3 05:24:20 Cough Completed 202209/16/2022 09/15/2022 - Comments only - Joselin MANJARREZ - Negative for COVID and flu as expected. Benign exam. Patient is likely experiencing a postviral cough. Prescription for Tessalon Perles 3 times a day as needed for cough. Recommended to stop Coricidin [id number] ter. Prescription for albuterol inhaler as needed for shortness of breath as he may be experiencing some cold induced bronchospasm when he goes outside. Plenty of rest and fluids. Follow-up if not proving or worsening symptoms. Problem Code: R05.8; Problem Code Type: ICD-10; [facility] [address], [place], [address] , [facility] 4 11:13:03 Chronic maxillary sinusitis Active 202210/21/2022 - Comments only - Nadia Freed MD - As above. He also tried a Tony pot but it did not relieve any symptoms. Problem Code: J32.0; Problem Code Type: ICD-10; Not Available [facility] 3 05:24:20 Hypo-osmolali ty and or hyponatremia Active 2022 Problem Code: E87.1; Problem Code Type: ICD-10; Not Available [facility] 3 05:24:20 Gastroesophag eal reflux disease Completed 200506/02/2023 Problem Code: 530.81; Problem Code Type: ICD-9; Not Available [facility] 3 05:24:29 Blood chemistry outside reference range Completed 201406/02/2023 03/31/2017 - Comments only - Dev Ocasio PA-C - We will recheck liver function tests. Problem Code: 790.6; Problem Code Type: ICD-9; Not Available [facility] 3 05:24:30 History and physical examination, administrativ e Completed 202010/22/2022 Problem Code: Z02.9; Problem Code Type: ICD-10; Not Available [facility] 3 05:24:33 Acute bronchitis Completed 201803/03/2020 Problem Code: J20.9; Problem Code Type: ICD-10; Not Available [facility] 3 05:24:34 Hyperglycemia Completed 201806/02/2023 Problem Code: R73.9; Problem Code Type: ICD-10; Not Available [facility] 3 05:24:34 General examination of patient Completed 201510/14/2020 Problem Code: Z00.8; Problem Code Type: ICD-10; Not Available [facility] 3 05:24:35 Dyspnea Completed 201603/03/2020 Problem Code: R06.00; Problem Code Type: ICD-10; Not Available [facility] 3 05:24:37 Cough Completed 201610/21/2017 Problem Code: R05; Problem Code Type: ICD-10; [address], [place], [address] , [facility] 4 11:13:03 Liver function tests outside reference range Completed 201406/02/2023 Problem Code: R94.5; Problem Code Type: ICD-10; Not Available [facility] 3 05:24:38 Carpal tunnel syndrome Completed 201106/02/2023 Problem Code: 354.0; Problem Code Type: ICD-9; Not Available [facility] 3 05:24:39 Hypertensive disorder Completed 201006/02/[address] [facility] 3 05:24:41 Pre-surgery evaluation Completed 201710/14/2020 Problem Code: Z01.818; Problem Code Type: ICD-10; Not Available [facility] 3 05:24:44 Alcohol abuse Completed 201406/02/2023 Problem Code: 305.00; Problem Code Type: ICD-9; Not Available [facility] 3 05:24:49 Headache Completed 201803/03/2020 Problem Code: R51; Problem Code Type: ICD-10; Not Available [facility] 3 05:24:49 History and physical examination, administrativ e Completed 202205/29/2023 05/12/2023 - Comments only - Joselin MANJARREZ - 1 year card issued due to hypertension and diabetes. He did have trace hemolyzed blood and recommended to follow-up with PCP about this. Problem Code: Z02.9; Problem Code Type: ICD-10; Not Available [facility] 4 05:37:14 Seborrheic dermatitis Active 202207/12/2023 - Comments only - Nadia Freed MD - Great from this is causing the eye irritation. Recommend daily eye scrubs plus ketoconazole shampoo once per week. Problem Code: L21.9; Problem Code Type: ICD-10; Not Available [facility] 4 05:37:14 Asymptomatic microscopic hematuria Completed 202206/11/2023 Problem Code: R31.21; Problem Code Type: ICD-10; Not Available [facility] 4 05:37:14 Acute right otitis media Active 2023 [facility] [address], [place], [address] , [facility] 4 09:54:32 Cough Active 202309/15/2022 - Comments only - Joselin MANJARREZ - Negative for COVID and flu as expected. Benign exam. Patient is likely experiencing a postviral cough. Prescription for Tessalon Perles 3 times a day as needed for cough. Recommended to stop Coricidin gbvo-uua-fozm ter. Prescription for albuterol inhaler as needed for shortness of breath as he may be experiencing some cold induced bronchospasm when he goes outside. Plenty of rest and fluids. Follow-up if not proving or worsening symptoms. Problem Code: R05.8; Problem Code Type: ICD-10; [address], [place], [address] , [facility] 4 11:13:03 Chronic conjunctiviti s Active [address], [place], [address] , [facility] 4 15:00:58 Problem Notes None recorded. Medical Equipment None Reported. Allergies Allergen ID Allergen Name Allergen Category Reaction Reaction Severity Criticality Documentation Date Start Date Code Code System Note Provider Name and Address Organization Details Recorded Time sulfadiaz ine medicatio n other moderate Not available 07/16/20232006 23129 RxNorm No react ion enter ed [facility] 4 18:17:10 01347 codeine medicatio n other moderate Not available 07/16/20232005 2670 RxNorm INTOL [facility] 4 18:16:31 11679 Tdvax medicatio n other severe Not available 01/12/20242021 49743 30 RxNorm No react ion enter ed [facility] 4 18:18:16 79062 verapamil medicatio n other mild Not available 01/12/20242019 76154 RxNorm low energ y and inc recta l bleed ing [facility] 4 18:20:19 Medications Name Sig Start Date Stop Date Status Note LastModified by Organization Details LastModified Time losartan 50 mg tablet 1 tab qd 07/27 completed Not Available Not Available Not Available amoxicill in 500 mg capsule Two caps twice per day for 4 weeks 01/11 completed Not Available Not Available Not Available terconazo le 0.4 % vaginal cream APPLY DAILY 12/26 completed Not Available Not Available Not Available clonidine HCl 0.1 mg tablet Take 1 tab by mouth twice daily 10/14 completed Not Available Not Available Not Available prednison e 10 mg tablet take 4 tablets at once daily for 3 days take 3 tablets at once daily for 3 days take 2 tablets at once daily for 3 days take 1 tablet daily for 3 days 07/17 completed Not Available Not Available Not Available Protonix 40 mg tablet,de layed release 1 qd 12/19 completed Not Available Not Available Not Available ketoconaz ole 2 % shampoo SHAMPOO AND LATHER AFFECTED AREA(S) ONCE PER WEEK TO CONTROL SEBORRHE A active Not Available Not Available No t Available diltiazem ER 180 mg capsule,2 4 hr,extend ed release Take 1 capsule by mouth once a day 02/25 completed Not Available Not Available Not Available azithromy yudi 250 mg tablet Take 2 tablet by mouth single dose now, then take 1 tablet by mouth daily for the next 4 days 02/14 completed Not Available Not Available Not Available ibuprofen 800 mg tablet 1 three times daily 12/19 completed Not Available Not Available Not Available Flonase 50 mcg/DOSE nasal inhaler 2 SPRAY daily 11/06 completed Not Available Not Available Not Available Prilosec 20 mg capsule,d elayed release 1 TAB QD 09/22 completed Not Available Not Available Not Available methyldop a 250 mg tablet Take 1 tablet by mouth twice a day 03/12 completed Not Available Not Available Not Available metformin 850 mg tablet Take 1 tablet by mouth once a day 2022 active Not Available Not Available Not Avai lable Biaxin 500 mg tablet 1 TAB BID 09/08 completed Not Available Not Available Not Available chlorthal idone 25 mg tablet Take 1/2 tablet by mouth once a day Pt cut dosin half 07/08/22 due to LH /foggine ss 10/21 completed Not Available Not Available Not Available fexofenad ine 180 mg tablet Take 1 by mouth daily 06/30 completed Not Available Not Available Not Available triamcino lone acetonide 0.1 % topical cream Apply a small amount to affected area once a day as needed 2023 active Not Available Not Available Not Avai lable amoxicill in 500 mg tablet 1 CAP TID 01/13 completed Not Available Not Available Not Available amoxicill in 875 mg tablet Take 1 tablet every 12 hours by oral route. 02/14 completed Not Available Not Available Not Available citalopra m 20 mg tablet 1 tab daily 2023 active Not Available Not Available Not Avai lable amlodipin e 10 mg tablet 1 TAB QD 10/11 completed Not Available Not Available Not Available benzonata te 100 mg capsule Take 1 capsule by mouth three times a day as needed for cough 02/14 completed Not Available Not Available Not Available Cipro 500 mg tablet 1 tab Q 12 hrs 01/02 completed Not Available Not Available Not Available lisinopri l 10 mg tablet 1 QD 08/25 completed Not Available Not Available Not Available Keflex 500 mg tablet 1 four times daily 12/26 completed Not Available Not Available Not Available metoprolo l tartrate 50 mg tablet Take one tab, 4 hours before your DOT 2022 active Not Available Not Available Not Avai lable methyldop a 500 mg tablet Take 1 tablet by mouth twice a day 03/19 completed [facility]avail[facility] ble at [facility], new script to Luis Enrique Not Available Not Available Not Available verapamil ER (SR) 240 mg tablet,ex tended release Take 1 by mouth daily 03/22 completed Not Available Not Available Not Available hydrochlo rothiazid e 25 mg tablet Take 1/2 tablet by mouth once a day try half of tab per TC on 04/08/2023 ) 04/17 completed Not Available Not Available Not Available Levaquin 500 mg tablet Take 1 tab by mouth daily 07/20 completed Not Available Not Available Not Available azelastin e 137 mcg (0.1 %) nasal spray Sells 1-2 spray into both nostrils twice a day 09/15 completed Not Available Not Available Not Available Cheratuss in AC 10 mg-100 mg/5 mL oral liquid Take 5-10 ML twice daily for cough 10/21 completed Not Available Not Available Not Available ibuprofen 600 mg tablet 1tab tid 02/23 completed Not Available Not Available Not Available Dyazide 37.5 mg-25 mg capsule Take 1 capsule by mouth once a day 01/22 completed Not Available Not Available Not Available albuterol sulfate HFA 90 mcg/actua tion aerosol inhaler Inhale 2 puff using inhaler every four to six hours as needed For coughing fits, shortnes s of breath or wheeze. 2022 active Not Available Not Available Not Avai lable fluocinon marilyn 0.05 % topical cream Apply to skin twice a day as needed 05/13 completed Not Available Not Available Not Available losartan 100 mg tablet Take 1 1/2 tablet by mouth once a day 04/28 completed Not Available Not Available Not Available fluticaso ne propionat e 50 mcg/actua tion nasal spray,darrian pension Sells 2 spray into both nostrils once a day 04/23 completed Not Available Not Available Not Available doxycycli ne hyclate 100 mg tablet Take 1 tab by mouth twice daily Fill at IP 01/04 completed Not Available Not Available Not Available loratadin e 10 mg tablet Take 1 tablet by mouth once a day as needed 04/28 completed Not Available Not Available Not Available spironola ctone 50 mg tablet one tab daily PO 04/28 completed Not Available Not Available Not Available amoxicill in 875 mg-potass ium clavulana te 125 mg tablet take one tablet twice daily for 7 days 07/13 completed Not Available Not Available Not Available tobramyci n 0.3 %-dexamet hasone 0.1 % eye drops,darrian pension INSTILL 1 DROP INTO both EYE BY three times per day until gone 2023 active Not Available Not Available Not Avai lable Augmentin 875 mg tablet 1 TAB twice daily 11/16 completed Not Available Not Available Not Available Robitussi n A-C 1-2 tsp. q4-6h prn cough 08/25 completed Not Available Not Available Not Available Xopenex HFA 08/12 completed Medicati onName: 'XOPENEX HFA 15gm'; Not Available Not Available Not Available Bystolic 5 mg tablet 1 TAB DAILY 06/07 completed Not Available Not Available Not Available Breo Ellipta 100 mcg-25 mcg/dose powder for inhalatio n 1 puff daily 08/01 completed Not Available Not Available Not Available K-Tab 20 mEq tablet,ex tended release Take 1 tab by mouth daily 08/15 completed Not Available Not Available Not Available Lorcet (hydrocod one) 5 mg-325 mg tablet 1 tab q4 hours 07/25 completed Not Available Not Available Not Available Vitals Date Recorded Body height Body temperature Oxygen saturation Oxygen saturation in Arterial blood by Pulse oximetry Heart rate Respiratory rate Systolic blood pressure Diastolic blood pressure Provider Name and Address Organization Details Last Updated DateTime 4 167.64 cm 97.7 [degF] 97 % 97 % 62 /min 18 /min 140 mm[Hg] 80 mm[Hg] MEGHAN AGUERO LPN [facility] 4 09:37:45 Date Recorded Body height Body mass index (BMI) Body weight Oxygen saturation Oxygen saturation in Arterial blood by Pulse oximetry Heart rate Systolic blood pressure Diastolic blood pressure Provider Name and Address Organization Details Last Updated DateTime 4 167.64 cm 34.8 kg/m2 14056.5 1 g 97 % 97 % 99 /min 128 mm[Hg] 76 mm[Hg] BRAD FLORES MA [facility] 14:22:04 Social History Question Answer Notes LastModified by Organizat ion Details LastModified Time Tobacco Smoking Status Never Smoker MEGHAN AGUERO LPN [facility], [facility] 09/21/2023 09:37:58 Would You Say That, In General, Your Health Is Good [email or web address] Information not available 04/28/2024 How Often Does Anyone, Including Family, Physically Hurt You? Never [email or web address] Information not available 04/28/2024 How Often Does Anyone, Including Family, Insult Or Talk Down To You? Never [email or web address] Information no t available 04/28/2024 How Often Does Anyone, Including Family, Threaten You With Harm? Never [email or web address] Information not available 04/28/2024 How Often Does Anyone, Including Family, Scream Or Curse At You? Never [email or web address] Information not available 04/28/2024 How Often In The Past Year Have You Used Marijuana (including Smoking, Vaping, Dabbing, Or Edibles)? Never [email or web address] Information not available 04/28/2024 How Often In The Past Year Have You Used Prescription Medications That Were Not Prescribed To You? Never [email or web address] Information not available 04/28/2024 How Often In The Past Year Have You Taken Your Own Prescription Medication More Than The Way It Was Prescribed Or For Different Reasons Than Its Intended Purpose? Never [email or web address] Information no t available 04/28/2024 How Often In The Past Year Have You Used Other Drugs (for Example, Heroin, Cocaine, Meth, Salvia, Inhalants)? Never [email or web address] Information not available 04/28/2024 Date Of Most Recent SBINS 04/28/2024 [email or web address] Information not available 04/28/2024 What Was The Date Of Your Most Recent Tobacco Screening? 09/21/2023 [email or web address] Information not available 09/21/2023 Sex: Male Functional Status None recorded. Mental Status None recorded. Family History Relationship Description Onset Age of this Age Resolved Age Notes Mother Family history of Hypercholesterolemia Father Family history of Hypertension Notes:*Problem: Father warren waggoner, age 55, in good health. Mother living, age 49, in good health. He has one sister, 27, in good health. 10/27/06 FAMILY HX: Father living, age 60, in good health. Mother living, age 54, in good health. Did have some skin cancer. One sister in good health. Medical History No medical history recorded. Immunizations Vaccine Type Date Status Provider Name and Address Organization Details Recorded Time SARS-COV-2 (COVID-19) vaccine, UNSPECIFIED 12/31/[address] [facility] 07/16/2023 05:19:31 SARS-COV-2 (COVID-19) vaccine, UNSPECIFIED 01/31/[address] [facility] 07/16/2023 05:19:31 Past Encounters Encounter ID Performer Location Encounter Start Date Encounter Closed Date Diagnosis/Indication Diagnosis SNOMED-CT Code [id number] [facility] [address] [address] 09/21/2023 09:24:36 09/21/2023 10:02:03 Cough 14023824 Acute righ t otitis media 425331276 [id number] NADIA FREED MD [address] [address] 04/28/2024 14:13:17 04/28/2024 15:15:39 Type 2 diabetes mellitus without complication 771303275 Chronic conjunctivitis 55087835 Essential hypertension 12289599 Gastro-eso phageal reflux disease with esophagitis 600401044 Hyperlipidemia 71571892 Screening for malignant neoplasm of prostate 812116010 Health Concerns Section Related Observation LastModified by Organization Detai ls LastModified Time None Recorded Concern Status LastModified by Organization Details LastModified Time None Recorded Advance Directives Directive None Recorded Payers Encounter Date Sequence Insurance Name Policy Number Policy Desai Covered Member ID Desai Member ID Guarantor Name 09/21/2023 1 *SELF PAY* Ra juan [place] 04/28/2024 1 *SELF PAY* Ra juan [place] Notes Date Note Type Note Provider Name and Address Organization Details Recorded Time 09/21/2023 text/html HPI Notes: Cough Reported by patient. Quality: productive Duration: constant Onset/Timing: sudden Context: non-smoker Modifying Factors: OTC medication Associated Symptoms: no fever; no chills; no chest pain; no heartburn; no nausea; no vomiting; no edema; no agitation; sputum production; chest wall tenderness; throat clearing; nasal discharge c c cough - has been sick x 4-5 days, spouse is starting to get sick now. Worst symptoms is productive cough and has developed ear pain. Can't sleep due to the cough. Eye have discharge at time, worse in the morning. Can't hear our of his right ear Tried dayquil and nyquil ,hasn't really helped [facility] [address], [place], [address], [place] [facility]. 09/21/2023 11:14:05 04/28/2024 text/html HPI Notes: Here for HME Dale is more careful with diet, having fewer sweets. He switched from beer over to gin and tonics but he still having 4-5 of those and they are probably doubles. He has not noted any weakness or numbness, exertional chest pain or heaviness. He has chronic irritation of both eyes with persistent discharge, itching, eyelid swelling and occasional burning pain. He has tried oral loratadine as well as antihistamine eyedrops and neither made any difference. In general this does not affect his vision and he did get an eye check a year ago. He does not have cats, 1 dog that he had a long time does not sleep on their bed. They do sleep in her basement and it can be humid there; they have had water infiltration in the past. They do not see mold. He does not have cough or wheezing. He is not exposed to high amounts of dust or other toxins at work. He does have some persistent low-grade sinus congestion and associated left frontal pressure. Rarely checking blood sugar. No polyuria polydipsia or persistent visual blurring. No other weakness or numbness. Prone to skin tags but nothing suspicious for cancer. He has 1 on his scrotum he wants checked. Up few times at night to pee but gets 7 or 8 hours of sleep and feels rested. Meds reviewed, he is no longer taking spironolactone. NADIA FREED MD [address], [place], [address], [facility], [facility]. 04/28/2024 16:22:36
--- OUTSIDE RECORDS SUMMARY | 2024-04-28 18:47 | XMS_ITS | Continuity of Care Document ---
Author Organization [facility] Address [address] [place] [address] Care Team Providers Care Outdoor Guide Name Role Phone [facility] Primary [facility] Physician Encounter [facility] Date(s): 10/04/22 - 10/04/22 [facility] [address] [place] [address] Discharge Disposition: Home or Self Care Attending Physician: Aurora Casanova MD Admitting Physician: Aurora Casanova MD Allergies, Adverse Reactions, Alerts Substance Reaction Severity Status verapamil Unknown Active sulfa drugs Unknown Active Assessment and Plan Extracted from: Title:Clinical Document Author:Leann George te:10/04/22 Diagnosis: Sore throat - Justin lt Comment: Functional Status 10/04/22 Other exposure to Infectious Disease Non e Medications chlorthalidone 0 Refill(s) Start Date: 10/04/22 Status: Ordered citalopram 0 Refill(s) Start Date: 10/04/22 Status: Ordered loratadine 0 Refill(s) Start Date: 10/04/22 Status: Ordered losartan 0 Refill(s) Start Date: 10/04/22 Status: Ordered Results Laboratory List Name Date CBC w/ Diff 10/04/22 Comprehensive Metabolic Panel (CMP) 10/04 Hemoglobin A1c 10/04/22 SARS-CoV-2 (COVID-19)/Flu/RSV (GeneXpert ) (COVID-19/Flu/RSV (GeneXpert)) 10/04/22 Automated Diff 10/04/22 Strep A (ID NOW) 10/04/22 Most recent to oldest [Reference Range]: 1 WBC [5.0-10.0 x10^3/mcL] 10.7 x10^3/mcL *HI* (10/04/22 11:40 AM) RBC [4.6-6.0 x10^6/mcL] 4.4 x10^6/mcL *LOW* (10/04/22 11:40 AM) Neutro Auto [40.0-75.0 %] 76.0 % *HI* (10/04/22 11:40 AM) Lymph Auto [20.0-50.0 %] 12.8 % *LOW* (10/04/22 11:40 AM) [place] Auto [2.0-15.0 %] 8.3 % (10/04/22 11:40 AM) Basophil Auto [0.0-1.0 %] 0.6 % (10/04/22 11:40 AM) BUN [7-18 mg/dL] 7 mg/dL (10/04/22 11:40 AM) Glucose Level [74-106 mg/dL] 129 mg/dL *HI* (10/04/22 11:40 AM) Potassium Level [3.5-5.1 mmol/L] 3.2 mmo l/L *LOW* (10/04/22 11:40 AM) MCV [80.0-96.0] 84.4 (10/04/22 11:40 AM) AST [15-37 unit/L] 48 unit/L *HI* (10/04/22 11:40 AM) ALT [16-63 unit/L] 53 unit/L (10/04/22 11:40 AM) MCHC [31.0-35.0 g/dL] 33.3 g/dL (10/04/22 11:40 AM) Sodium Level [136-145 mmol/L] 129 mmol/L *LOW* (10/04/22 11:40 AM) Hct [41.0-51.0 %] 36.9 % *LOW* (10/04/22 11:40 AM) Calcium Level [8.5-10.1 mg/dL] 9.4 mg/dL (10/04/22 11:40 AM) Albumin Level [3.4-5.0 g/dL] 3.8 g/dL (10/04/22 11:40 AM) Protein Total [6.4-8.2 g/dL] 8.2 g/dL (10/04/22 11:40 AM) MCH [26.0-32.0 pg] 28.1 pg (10/04/22 11:40 AM) Neutro Absolute 8.1 x10^3/mcL *NA* (10/04/22 11:40 AM) Bilirubin Total [0.2-1.0 mg/dL] 0.3 mg/d L (10/04/22 11:40 AM) Hgb [14.0-18.0 g/dL] 12.3 g/dL *LOW* (10/04/22 11:40 AM) Alk Phos [46-146 unit/L] 111 unit/L (10/04/22 11:40 AM) Platelets [130-450 x10^3/mcL] 318 x10^3/ mcL (10/04/22 11:40 AM) CO2 [21-32 mmol/L] 29 mmol/L (10/04/22 11:40 AM) eGFR Non-AA [>=60] 98 (10/04/22 11:40 AM) eGFR AA [>=60] 98 (10/04/22 11:40 AM) Hemoglobin A1c [4.0-6.0 %] 6.8 % *HI* (10/04/22 11:40 AM) Chloride Level [98-107 mmol/L] 93 mmol/L *LOW* (10/04/22 11:40 AM) RDW-CV [11.5-17.0 %] 14.1 % (10/04/22 11:40 AM) Imm Gran Auto [0.0-0.9 %] 0.4 % (10/04/22 11:40 AM) Strep A -IDNOW [Not Detected] Not Detect ed (10/04/22 10:41 AM) Creatinine Level [0.70-1.30 mg/dL] 0.94 mg/dL (10/04/22 11:40 AM) Employed in healthcare? No *NA* (10/04/22 11:40 AM) Symptomatic as defined by CDC? No *NA* (10/04/22 11:40 AM) Hospitalized due to COVID-19? No *NA* (10/04/22 11:40 AM) In ICU? No *NA* (10/04/22 11:40 AM) Group care resident? No *NA* (10/04/22 11:40 AM) status? Not *NA* (10/04/22 11:40 AM) SARS-CoV-2(Covid19)PCR(GXpert COVFLURSV) [Negative] Negative (10/04/22 11:40 AM) Flu A (GXpert COVFLURSV) [Negative] Nega tive (10/04/22 11:40 AM) RSV (GXpert COVFLURSV) [Negative] Negati ve (10/04/22 11:40 AM) Flu B (GXpert COVFLURSV) [Negative] Nega tive (10/04/22 11:40 AM) Eos, Auto [1.0-6.0 %] 1.9 % (10/04/22 11:40 AM) Vital Signs Most recent to oldest [Reference Range]: 1 Temperature Temporal Artery [36-38 Deg C ] 35.7 Deg C *LOW* (10/04/22 10:28 AM) Peripheral Pulse Rate [60-100 bpm] 100 b pm (10/04/22 10:28 AM) Respiratory Rate [12-24 br/min] 18 br/mi n (10/04/22 10:28 AM) Blood Pressure [90-140/60-90 mmHg] 147/8 5mmHg *HI* (10/04/22 10:28 AM) Weight Dosing 90.00 kg (10/04/22 10:36 AM) Weight Estimated 90.00 kg (10/04/22 10:28 AM) Height/Length Dosing 170.000 cm (10/04/22 10:36 AM) Height/Length Estimated 170.000 cm (10/04/22 10:28 AM) Social History Social History Type Response Tobacco Never tobacco user T obacco Use:. Sex Male Hospital Discharge Instructions Patient Education 10/04/2022 11:37:41 Potassium Content of Foods Potassium Content of Foods Potassium is a mineral found in many foods and drinks. It affects how the heart works, and helps keep fluids and minerals balanced in the body. The amount of potassium you need each day depends on your age and any medical conditions you may have. Talk to your health care provider or dietitian about how much potassium you need. The following lists of foods provide the general serving size for foods and the approximate amount of potassium in each serving, listed in milligrams (mg). Actual values may vary depending on the product and how it is processed. High in potassium The following foods and beverages have 200 mg or more of potassium per serving: ??? Apricots (raw) - 2 have 200 mg of potassium. ??? Apricots (dry) - 5 have 200 mg of potassium. ??? Artichoke - 1 medium has 345 mg of potassium. ??? Avocado - ?? fruit has 245 mg of potassium. ??? Banana - 1 medium fruit has 425 mg of potassium. ??? Soriano or baked beans (canned) - ?? cup has 280 mg of potassium. ??? White beans (canned) - ?? cup has 595 mg potassium. ??? Beef roast - 3 oz has 320 mg of potassium. ??? Ground beef - 3 oz has 270 mg of potassium. ??? Beets (raw or cooked) - ?? cup has 260 mg of potassium. ??? Bran muffin - 2 oz has 300 mg of potassium. ??? Broccoli (cooked) - ?? cup has 230 mg of potassium. ??? [place] sprouts - ?? cup has 250 mg of potassium. ??? Cantaloupe - ?? cup has 215 mg of potassium. ??? Cereal, 100% bran - ?? cup has 200???400 mg of potassium. ??? Cheeseburger -1 single fast food burger has 225???400 mg of potassium. ??? Chicken - 3 oz has 220 mg of potassium. ??? Clams (canned) - 3 oz has 535 mg of potassium. ??? Crab - 3 oz has 225 mg of potassium. ??? Dates - 5 have 270 mg of potassium. ??? Dried beans and peas - ?? cup has 300???475 mg of potassium. ??? Figs (dried) - 2 have 260 mg of potassium. ??? Fish (halibut, tuna, cod, snapper) - 3 oz has 480 mg of potassium. ??? Fish (salmon, sean, swordfish, perch) - 3 oz has 300 mg of potassium. ??? Fish (tuna, canned) - 3 oz has 200 mg of potassium. ??? [place] fries (fast food) - 3 oz has 470 mg of potassium. ??? Granola with fruit and nuts - ?? cup has 200 mg of potassium. ??? Grapefruit juice - ?? cup has 200 mg of potassium. ??? Honeydew melon - ?? cup has 200 mg of potassium. ??? Kale (raw) - 1 cup has 300 mg of potassium. ??? Kiwi - 1 medium fruit has 240 mg of potassium. ??? Kohlrabi, rutabaga, parsnips - ?? cup has 280 mg of potassium. ??? Lentils - ?? cup has 365 mg of potassium. ??? [place] - 1 each has 325 mg of potassium. ??? Milk (nonfat, low-fat, whole, buttermilk) - 1 cup has 350???380 mg of potassium. ??? Milk (chocolate) - 1 cup has 420 mg of potassium ??? Molasses - 1 Tbsp has 295 mg of potassium. ??? Mushrooms - ?? cup has 280 mg of potassium. ??? Nectarine - 1 each has 275 mg of potassium. ??? Nuts (almonds, peanuts, hazelnuts, [place], cashew, mixed) - 1 oz has 200 mg of potassium. ??? Nuts (pistachios) - 1 oz has 295 mg of potassium. ??? Wilkes - 1 fruit has 240 mg of potassium. ??? [place] juice - ?? cup has 235 mg of potassium. ??? Papaya - ?? medium fruit has 390 mg of potassium. ??? Peanut butter (chunky) - 2 Tbsp has 240 mg of potassium. ??? Peanut butter (smooth) - 2 Tbsp has 210 mg of potassium. ??? Pear - 1 medium (200 mg) of potassium. ??? Pomegranate - 1 whole fruit has 400 mg of potassium. ??? Pomegranate juice - ?? cup has 215 mg of potassium. ??? Pork - 3 oz has 350 mg of potassium. ??? Potato chips (salted) - 1 oz has 465 mg of potassium. ??? Potato (baked with skin) - 1 medium has 925 mg of potassium. ??? Potato (boiled) - ?? cup has 255 mg of potassium. ??? Potato (Mashed) - ?? cup has 330 mg of potassium. ??? Prune juice - ?? cup has 370 mg of potassium. ??? Prunes - 5 have 305 mg of potassium. ??? Pudding (chocolate) - ?? cup has 230 mg of potassium. ??? Pumpkin (canned) - ?? cup has 250 mg of potassium. ??? Raisins (seedless) - ?? cup has 270 mg of potassium. ??? Seeds (sunflower or pumpkin) - 1 oz has 240 mg of potassium. ??? Soy milk - 1 cup has 300 mg of potassium. ??? Spinach (cooked) - 1/2 cup has 420 mg of potassium. ??? Spinach (canned) - ?? cup has 370 mg of potassium. ??? Sweet potato (baked with skin) - 1 medium has 450 mg of potassium. ??? Slovenian chard - ?? cup has 480 mg of potassium. ??? Tomato or vegetable juice - ?? cup has 275 mg of potassium. ??? Tomato (sauce or puree) - ?? cup has 400???550 mg of potassium. ??? Tomato (raw) - 1 medium has 290 mg of potassium. ??? Tomato (canned) - ?? cup has 200???300 mg of potassium. ??? [place] - 3 oz has 250 mg of potassium. ??? Wheat germ - 1 oz has 250 mg of potassium. ??? Winter squash - ?? cup has 250 mg of potassium. ??? Yogurt (plain or fruited) - 6 oz has 260???435 mg of potassium. ??? Zucchini - ?? cup has 220 mg of potassium. Moderate in potassium The following foods and beverages have 50???200 mg of potassium per serving: ??? Apple - 1 fruit has 150 mg of potassium ??? Apple juice - ?? cup has 150 mg of potassium ??? Applesauce - ?? cup has 90 mg of potassium ??? Apricot nectar - ?? cup has 140 mg of potassium ??? Asparagus (small arreguin) - ?? cup has 155 mg of potassium ??? Asparagus (large arreguin) - 6 have 155 mg of potassium ??? Bagel (cinnamon raisin) - 1 four-inch bagel has 130 mg of potassium ??? Bagel (egg or plain) - 1 four- inch bagel has 70 mg of potassium ??? Beans (green) - ?? cup has 90 mg of potassium ??? Beans (yellow) - ?? cup has 190 mg of potassium ??? Beer, regular - 12 oz has 100 mg of potassium ??? Beets (canned) - ?? cup has 125 mg of potassium ??? Blackberries - ?? cup has 115 mg of potassium ??? Blueberries - ?? cup has 60 mg of potassium ??? Bread (whole wheat) - 1 slice has 70 mg of potassium ??? Broccoli (raw) - ?? cup has 145 mg of potassium ??? Cabbage - ?? cup has 150 mg of potassium ??? Carrots (cooked or raw) - ?? cup has 180 mg of potassium ??? Cauliflower (raw) - ?? cup has 150 mg of potassium ??? Celery (raw) - ?? cup has 155 mg of potassium ??? Cereal, bran flakes - ?? cup has 120???150 mg of potassium ??? Cheese (cottage) - ?? cup has 110 mg of potassium ??? Cherries - 10 have 150 mg of potassium ??? Chocolate - 1?? oz bar has 165 mg of potassium ??? Coffee (brewed) - 6 oz has 90 mg of potassium ??? Chepachet - ?? cup or 1 ear has 195 mg of potassium ??? Cucumbers - ?? cup has 80 mg of potassium ??? Egg - 1 large egg has 60 mg of potassium ??? Eggplant - ?? cup has 60 mg of potassium ??? Endive (raw) - ?? cup has 80 mg of potassium ??? [place] muffin - 1 has 65 mg of potassium ??? Fish (ocean perch) - 3 oz has 192 mg of potassium ??? Frankfurter, beef or pork - 1 has 75 mg of potassium ??? Fruit cocktail - ?? cup has 115 mg of potassium ??? Grape juice - ?? cup has 170 mg of potassium ??? Grapefruit - ?? fruit has 175 mg of potassium ??? Grapes - ?? cup has 155 mg of potassium ??? Greens: kale, turnip, jennifer - ?? cup has 110???150 mg of potassium ??? Ice cream or frozen yogurt (chocolate) - ?? cup has 175 mg of potassium ??? Ice cream or frozen yogurt (vanilla) - ?? cup has 120???150 mg of potassium ??? Becky, limes - 1 each has 80 mg of potassium ??? Lettuce - 1 cup has 100 mg of potassium ??? Mixed vegetables - ?? cup has 150 mg of potassium ??? Mushrooms, raw - ?? cup has 110 mg of potassium ??? Nuts (walnuts, pecans, or macadamia) - 1 oz has 125 mg of potassium ??? Oatmeal - ?? cup has 80 mg of potassium ??? Okra - ?? cup has 110 mg of potassium ??? Onions - ?? cup has 120 mg of potassium ??? [place] - 1 has 185 mg of potassium ??? Peaches (canned) - ?? cup has 120 mg of potassium ??? Pears (canned) - ?? cup has 120 mg of potassium ??? Peas, green (frozen) - ?? cup has 90 mg of potassium ??? Peppers (Green) - ?? cup has 130 mg of potassium ??? Peppers (Red) - ?? cup has 160 mg of potassium ??? Pineapple juice - ?? cup has 165 mg of potassium ??? Pineapple (fresh or canned) - ?? cup has 100 mg of potassium ??? Plums - 1 has 105 mg of potassium ??? Pudding, vanilla - ?? cup has 150 mg of potassium ??? Raspberries - ?? cup has 90 mg of potassium ??? Rhubarb - ?? cup has 115 mg of potassium ??? Rice, wild - ?? cup has 80 mg of potassium ??? Shrimp - 3 oz has 155 mg of potassium ??? Spinach (raw) - 1 cup has 170 mg of potassium ??? Strawberries - ?? cup has 125 mg of potassium ??? Summer squash - ?? cup has 175???200 mg of potassium ??? Slovenian chard (raw) - 1 cup has 135 mg of potassium ??? Tangerines - 1 fruit has 140 mg of potassium ??? Tea, brewed - 6 oz has 65 mg of potassium ??? Turnips - ?? cup has 140 mg of potassium ??? Watermelon - ?? cup has 85 mg of potassium ??? Wine (Red, table) - 5 oz has 180 mg of potassium ??? Wine (White, table) - 5 oz 100 mg of potassium Low in potassium The following foods and beverages have less than 50 mg of potassium per serving. ??? Bread (white) - 1 slice has 30 mg of potassium ??? Carbonated beverages - 12 oz has less than 5 mg of potassium ??? Cheese - 1 oz has 20???30 mg of potassium ??? Cranberries - ?? cup has 45 mg of potassium ??? Cranberry juice cocktail - ?? cup has 20 mg of potassium ??? Fats and oils - 1 Tbsp has less than 5 mg of potassium ??? Hummus - 1 Tbsp has 32 mg of potassium ??? [place] (papaya, elvira, or pear) - ?? cup has 35 mg of potassium ??? Rice (white or brown) - ?? cup has 50 mg of potassium ??? Spaghetti or macaroni (cooked) - ?? cup has 30 mg of potassium ??? Tortilla, flour or corn - 1 has 50 mg of potassium ??? Waffle - 1 four-inch waffle has 50 mg of potassium ??? Water chestnuts - ?? cup has 40 mg of potassium Summary ??? Potassium is a mineral found in many foods and drinks. It affects how the heart works, and helps keep fluids and minerals balanced in the body. ??? The amount of potassium you need each day depends on your age and any existing medical conditions you may have. Your health care provider or dietitian may recommend an amount of potassium that you should have each day. This information is not intended to replace advice given to you by your health care provider. Make sure you discuss any questions you have with your health care provider. Document Revised: 08/05/2018 Document Reviewed: 11/17/2017 [employer] Patient Education ?? 2022 [employer] 10/04/2022 11:37:39 Hypokalemia Hypokalemia Hypokalemia means that the amount of potassium in the blood is lower than normal. Potassium is a chemical (electrolyte) that helps regulate the amount of fluid in the body. It also stimulates muscle tightening (contraction) and helps nerves work properly. Normally, most of the body's potassium is inside cells, and only a very small amount is in the blood. Because the amount in the blood is so small, minor changes to potassium levels in the blood can be life-threatening. What are the causes? This condition may be caused by: ??? Antibiotic medicine. ??? Diarrhea or vomiting. Taking too much of a medicine that helps you have a bowel movement (laxative) can cause diarrhea and lead to hypokalemia. ??? Chronic kidney disease (CKD). ??? Medicines that help the body get rid of excess fluid (diuretics). ??? Eating disorders, such as bulimia. ??? Low magnesium levels in the body. ??? Sweating a lot. What are the signs or symptoms? Symptoms of this condition include: ??? Weakness. ??? Constipation. ??? Fatigue. ??? Muscle cramps. ??? Mental confusion. ??? Skipped heartbeats or irregular heartbeat (palpitations). ??? Tingling or numbness. How is this diagnosed? This condition is diagnosed with a blood test. How is this treated? This condition may be treated by: ??? Taking potassium supplements by mouth. ??? Adjusting the medicines that you take. ??? Eating more foods that contain a lot of potassium. If your potassium level is very low, you may need to get potassium through an IV and be monitored in the hospital. Follow these instructions at home: ??? Take [id number] and prescription medicines only as told by your health care provider. This includes vitamins and supplements. ??? Eat a healthy diet. A healthy diet includes fresh fruits and vegetables, whole grains, healthy fats, and lean proteins. ??? If instructed, eat more foods that contain a lot of potassium. This includes: ??? Nuts, such as peanuts and pistachios. ??? Seeds, such as sunflower seeds and pumpkin seeds. ??? Peas, lentils, and soriano beans. ??? Whole grain and bran cereals and breads. ??? Fresh fruits and vegetables, such as apricots, avocado, bananas, cantaloupe, kiwi, oranges, tomatoes, asparagus, and potatoes. ??? [place] juice. ??? Tomato juice. ??? Red meats. ??? Yogurt. ??? Keep all follow-up visits as told by your health care provider. This is important. Contact a health care provider if you: ??? Have weakness that gets worse. ??? Feel your heart pounding or racing. ??? Vomit. ??? Have diarrhea. ??? Have diabetes (diabetes mellitus) and you have trouble keeping your blood sugar (glucose) in your target range. Get help right away if you: ??? Have chest pain. ??? Have shortness of breath. ??? Have vomiting or diarrhea that lasts for more than 2 days. ??? Faint. Summary ??? Hypokalemia means that the amount of potassium in the blood is lower than normal. ??? This condition is diagnosed with a blood test. ??? Hypokalemia may be treated by taking potassium supplements, adjusting the medicines that you take, or eating more foods that are high in potassium. ??? If your potassium level is very low, you may need to get potassium through an IV and be monitored in the hospital. This information is not intended to replace advice given to you by your health care provider. Make sure you discuss any questions you have with your health care provider. Document Revised: 04/04/2019 Document Reviewed: 04/05/2019 [employer] Patient Education ?? 2021 [employer]. Physician Emergency department Note * Marquez Londono MD: PERFORM Event Display: ED Note Physician Authored Date: [id number] [place] :1970 Age:52 years Sex:Male Visit Date:10/04/2022 Primary Care Physician: Marquez Tan MD Name:??Mignon [place] CC:??Sore throat HPI:??Time of onset is yesterday. ??Context is patient who is had an upper respiratory infection diagnosis, [place] with persistent cough productive of clear sputum. ??Patient also notes occasional discomfort in his left ear. ??He now finds it hard to swallow. ROS: Review of systems is positive for cough productive of clear sputum that precipitates substernal chest discomfort. ??Patient experiences dyspnea on exertion. ??He has occasional headaches. ??Associated's negative symptoms are rhinorrhea, joint pain, abnormal bleeding, urinary symptoms, GI symptoms. Medical history: Diabetes mellitus type 2 controlled with weight reduction Medications: Hydrochlorothiazide, losartan Exam: Patient is no acute distress. ??He converses normally. ??Establishes maintains eye contact. ??Respirations are normal. ??Chest auscultation is normal. ??Heart auscultation is normal. ??Posterior pharynx is not inflamed. ??Tympanic membranes are bilaterally dull slight erythema on the right. Labs ordered and reviewed: WBC is elevated to 10.7. ??Hemoglobin is reduced to 12.3. ??Sodium is reduced to 129. ??Potassium is reduced to 3.2. ??Hemoglobin A1c is elevated to 6.8. ??Strep swab is negative. ??Viral swab for influenza, COVID, RSV are negative. Disposition:??Discharge home Impression:??Anemia, hyponatremia, hypokalemia, upper respiratory infection Patient Instructions:??You do have an upper respiratory infection causing your sore throat. ??It isnot strep. ??Is not influenza, COVID RR SV. ??You are feeling poorly because your potassium is low and your sodium is low. ??The low sodium is likely due to your hydrochlorothiazide. ??The low potassium is likely also due to your hydrochlorothiazide. ??Stop the hydrochlorothiazide. ??Concentrate onsome potassium rich foods. ??Decrease the amount that you drink so that you are a little bit thirsty and this will automatically raise your sodium. Follow-up with your primary care provider. Monitor your blood pressure. ??[place] blood pressure would be a systolic pressure less than 130. Your hemoglobin is also a little low. ??You can discuss an approach to this problem with your primary care provider. For the sore throat you may take acetaminophen 1000 mg up to 4 times per day. Marquez Londono MD Medical Decision Making: ?Problem Complexity: Chronic with side effects (21683) ?Data Complexity: Straightforward, low, 52807 ?Risk of Management: Moderate, 72840 ?codin Electronically Signed on 10/04/22 12:44 PM Marquez Londono MD Emergency department Discharge instructions * Marquez Londono MD: PERFORM Event Display: ED Discharge Information Authored Date: [id number] [place] :1970 Age:52 years Sex:Male Visit Date:10/04/2022 Primary Care Physician: Marquez Tan MD Discharge Instructions We would like to thank you for allowing us to assist you with your healthcare needs. The following includes patient education materials and information regarding your injury/illness. Discharge Vitals Temperature??(Temporal Artery) 96.3 ??F (35.7 ??C) Heart Rate??(Peripheral) 100 Respiratory Rate?? 18 Blood Pressure?? 147/85?? Height?? 66.93 in (170.000 cm) Weight??(Estimated) 198.45 lb (90.00 kg) Allergies sulfa drugs verapamil What to Do Next Instructions from Your Care Team Patient Instructions:??You do have an upper respiratory infection causing your sore throat. ??It isnot strep. ??Is not influenza, COVID RR SV. ??You are feeling poorly because your potassium is low and your sodium is low. ??The low sodium is likely due to your hydrochlorothiazide. ??The low potassium is likely also due to your hydrochlorothiazide. ??Stop the hydrochlorothiazide. ??Concentrate onsome potassium rich foods. ??Decrease the amount that you drink so that you are a little bit thirsty and this will automatically raise your sodium. Follow-up with your primary care provider. Monitor your blood pressure. ??[place] blood pressure would be a systolic pressure less than 130. Your hemoglobin is also a little low. ??You can discuss an approach to this problem with your primary care provider. For the sore throat you may take acetaminophen 1000 mg up to 4 times per day. Marquez Londono MD You were treated today on an emergency basis; it may be scherer to contact your primary care provider to notify them of your visit today. You may have been referred to your regular doctor or a specialist, please follow up as instructed. If your condition worsens or you can't get in to see the doctor, contact the Emergency Department. Medications What When Instructions Next Dose Unchanged chlorthalidone Unchanged citalopram Unchanged loratadine Unchanged losartan Education Materials Potassium Content of Foods Potassium is a mineral found in many foods and drinks. It affects how the heart works, and helps keep fluids and minerals balanced in the body. The amount of potassium you need each day depends on your age and any medical conditions you may have. Talk to your health care provider or dietitian about how much potassium you need. The following lists of foods provide the general serving size for foods and the approximate amount of potassium in each serving, listed in milligrams (mg). Actual values may vary depending on the product and how it is processed. High in potassium The following foods and beverages have 200 mg or more of potassium per serving: ? Apricots (raw) - 2 have 200 mg of potassium. ? Apricots (dry) - 5 have 200 mg of potassium. ? Artichoke - 1 medium has 345 mg of potassium. ? Avocado - ?? fruit has 245 mg of potassium. ? Banana - 1 medium fruit has 425 mg of potassium. ? Soriano or baked beans (canned) - ?? cup has 280 mg of potassium. ? White beans (canned) - ?? cup has 595 mg potassium. ? Beef roast - 3 oz has 320 mg of potassium. ? Ground beef - 3 oz has 270 mg of potassium. ? Beets (raw or cooked) - ?? cup has 260 mg of potassium. ? Bran muffin - 2 oz has 300 mg of potassium. ? Broccoli (cooked) - ?? cup has 230 mg of potassium. ? [place] sprouts - ?? cup has 250 mg of potassium. ? Cantaloupe - ?? cup has 215 mg of potassium. ? Cereal, 100% bran - ?? cup has 200???400 mg of potassium. ? Cheeseburger -1 single fast food burger has 225???400 mg of potassium. ? Chicken - 3 oz has 220 mg of potassium. ? Clams (canned) - 3 oz has 535 mg of potassium. ? Crab - 3 oz has 225 mg of potassium. ? Dates - 5 have 270 mg of potassium. ? Dried beans and peas - ?? cup has 300???475 mg of potassium. ? Figs (dried) - 2 have 260 mg of potassium. ? Fish (halibut, tuna, cod, snapper) - 3 oz has 480 mg of potassium. ? Fish (salmon, sean, swordfish, perch) - 3 oz has 300 mg of potassium. ? Fish (tuna, canned) - 3 oz has 200 mg of potassium. ? Tong[place] fries (fast food) - 3 oz has 470 mg of potassium. ? Granola with fruit and nuts - ?? cup has 200 mg of potassium. ? Grapefruit juice - ?? cup has 200 mg of potassium. ? Honeydew melon - ?? cup has 200 mg of potassium. ? Kale (raw) - 1 cup has 300 mg of potassium. ? Kiwi - 1 medium fruit has 240 mg of potassium. ? Kohlrabi, rutabaga, parsnips - ?? cup has 280 mg of potassium. ? Lentils - ?? cup has 365 mg of potassium. ? [place] - 1 each has 325 mg of potassium. ? Milk (nonfat, low-fat, whole, buttermilk) - 1 cup has 350???380 mg of potassium. ? Milk (chocolate) - 1 cup has 420 mg of potassium ? Molasses - 1 Tbsp has 295 mg of potassium. ? Mushrooms - ?? cup has 280 mg of potassium. ? Nectarine - 1 each has 275 mg of potassium. ? Nuts (almonds, peanuts, hazelnuts, [place], cashew, mixed) - 1 oz has 200 mg of potassium. ? Nuts (pistachios) - 1 oz has 295 mg of potassium. ? Wilkes - 1 fruit has 240 mg of potassium. ? Wilkes juice - ?? cup has 235 mg of potassium. ? Papaya - ?? medium fruit has 390 mg of potassium. ? Peanut butter (chunky) - 2 Tbsp has 240 mg of potassium. ? Peanut butter (smooth) - 2 Tbsp has 210 mg of potassium. ? Pear - 1 medium (200 mg) of potassium. ? Pomegranate - 1 whole fruit has 400 mg of potassium. ? Pomegranate juice - ?? cup has 215 mg of potassium. ? Pork - 3 oz has 350 mg of potassium. ? Potato chips (salted) - 1 oz has 465 mg of potassium. ? Potato (baked with skin) - 1 medium has 925 mg of potassium. ? Potato (boiled) - ?? cup has 255 mg of potassium. ? Potato (Mashed) - ?? cup has 330 mg of potassium. ? Prune juice - ?? cup has 370 mg of potassium. ? Prunes - 5 have 305 mg of potassium. ? Pudding (chocolate) - ?? cup has 230 mg of potassium. ? Pumpkin (canned) - ?? cup has 250 mg of potassium. ? Raisins (seedless) - ?? cup has 270 mg of potassium. ? Seeds (sunflower or pumpkin) - 1 oz has 240 mg of potassium. ? Soy milk - 1 cup has 300 mg of potassium. ? Spinach (cooked) - 1/2 cup has 420 mg of potassium. ? Spinach (canned) - ?? cup has 370 mg of potassium. ? Sweet potato (baked with skin) - 1 medium has 450 mg of potassium. ? Slovenian chard - ?? cup has 480 mg of potassium. ? Tomato or vegetable juice - ?? cup has 275 mg of potassium. ? Tomato (sauce or puree) - ?? cup has 400???550 mg of potassium. ? Tomato (raw) - 1 medium has 290 mg of potassium. ? Tomato (canned) - ?? cup has 200???300 mg of potassium. ? [place] - 3 oz has 250 mg of potassium. ? Wheat germ - 1 oz has 250 mg of potassium. ? Winter squash - ?? cup has 250 mg of potassium. ? Yogurt (plain or fruited) - 6 oz has 260???435 mg of potassium. ? Zucchini - ?? cup has 220 mg of potassium. Moderate in potassium The following foods and beverages have 50???200 mg of potassium per serving: ? Apple - 1 fruit has 150 mg of potassium ? Apple juice - ?? cup has 150 mg of potassium ? Applesauce - ?? cup has 90 mg of potassium ? Apricot nectar - ?? cup has 140 mg of potassium ? Asparagus (small arreguin) - ?? cup has 155 mg of potassium ? Asparagus (large arreguin) - 6 have 155 mg of potassium ? Bagel (cinnamon raisin) - 1 four-inch bagel has 130 mg of potassium ? Bagel (egg or plain) - 1 four- inch bagel has 70 mg of potassium ? Beans (green) - ?? cup has 90 mg of potassium ? Beans (yellow) - ?? cup has 190 mg of potassium ? Beer, regular - 12 oz has 100 mg of potassium ? Beets (canned) - ?? cup has 125 mg of potassium ? Blackberries - ?? cup has 115 mg of potassium ? Blueberries - ?? cup has 60 mg of potassium ? Bread (whole wheat) - 1 slice has 70 mg of potassium ? Broccoli (raw) - ?? cup has 145 mg of potassium ? Cabbage - ?? cup has 150 mg of potassium ? Carrots (cooked or raw) - ?? cup has 180 mg of potassium ? Cauliflower (raw) - ?? cup has 150 mg of potassium ? Celery (raw) - ?? cup has 155 mg of potassium ? Cereal, bran flakes - ?? cup has 120???150 mg of potassium ? Cheese (cottage) - ?? cup has 110 mg of potassium ? Cherries - 10 have 150 mg of potassium ? Chocolate - 1?? oz bar has 165 mg of potassium ? Coffee (brewed) - 6 oz has 90 mg of potassium ? [place]t - ?? cup or 1 ear has 195 mg of potassium ? Cucumbers - ?? cup has 80 mg of potassium ? Egg - 1 large egg has 60 mg of potassium ? Eggplant - ?? cup has 60 mg of potassium ? Endive (raw) - ?? cup has 80 mg of potassium ? [place] muffin - 1 has 65 mg of potassium ? Fish (ocean perch) - 3 oz has 192 mg of potassium ? Frankfurter, beef or pork - 1 has 75 mg of potassium ? Fruit cocktail - ?? cup has 115 mg of potassium ? Grape juice - ?? cup has 170 mg of potassium ? Grapefruit - ?? fruit has 175 mg of potassium ? Grapes - ?? cup has 155 mg of potassium ? Greens: kale, turnip, jennifer - ?? cup has 110???150 mg of potassium ? Ice cream or frozen yogurt (chocolate) - ?? cup has 175 mg of potassium ? Ice cream or frozen yogurt (vanilla) - ?? cup has 120???150 mg of potassium ? Becky, limes - 1 each has 80 mg of potassium ? Lettuce - 1 cup has 100 mg of potassium ? Mixed vegetables - ?? cup has 150 mg of potassium ? Mushrooms, raw - ?? cup has 110 mg of potassium ? Nuts (walnuts, pecans, or macadamia) - 1 oz has 125 mg of potassium ? Oatmeal - ?? cup has 80 mg of potassium ? Okra - ?? cup has 110 mg of potassium ? Onions - ?? cup has 120 mg of potassium ? [place] - 1 has 185 mg of potassium ? Peaches (canned) - ?? cup has 120 mg of potassium ? Pears (canned) - ?? cup has 120 mg of potassium ? Peas, green (frozen) - ?? cup has 90 mg of potassium ? Peppers (Green) - ?? cup has 130 mg of potassium ? Peppers (Red) - ?? cup has 160 mg of potassium ? Pineapple juice - ?? cup has 165 mg of potassium ? Pineapple (fresh or canned) - ?? cup has 100 mg of potassium ? Plums - 1 has 105 mg of potassium ? Pudding, vanilla - ?? cup has 150 mg of potassium ? Raspberries - ?? cup has 90 mg of potassium ? Rhubarb - ?? cup has 115 mg of potassium ? Rice, wild - ?? cup has 80 mg of potassium ? Shrimp - 3 oz has 155 mg of potassium ? Spinach (raw) - 1 cup has 170 mg of potassium ? Strawberries - ?? cup has 125 mg of potassium ? Summer squash - ?? cup has 175???200 mg of potassium ? Slovenian chard (raw) - 1 cup has 135 mg of potassium ? Tangerines - 1 fruit has 140 mg of potassium ? Tea, brewed - 6 oz has 65 mg of potassium ? Turnips - ?? cup has 140 mg of potassium ? Watermelon - ?? cup has 85 mg of potassium ? Wine (Red, table) - 5 oz has 180 mg of potassium ? Wine (White, table) - 5 oz 100 mg of potassium Low in potassium The following foods and beverages have less than 50 mg of potassium per serving. ? Bread (white) - 1 slice has 30 mg of potassium ? Carbonated beverages - 12 oz has less than 5 mg of potassium ? Cheese - 1 oz has 20???30 mg of potassium ? Cranberries - ?? cup has 45 mg of potassium ? Cranberry juice cocktail - ?? cup has 20 mg of potassium ? Fats and oils - 1 Tbsp has less than 5 mg of potassium ? Hummus - 1 Tbsp has 32 mg of potassium ? [place] (papaya, elvira, or pear) - ?? cup has 35 mg of potassium ? Rice (white or brown) - ?? cup has 50 mg of potassium ? Spaghetti or macaroni (cooked) - ?? cup has 30 mg of potassium ? Tortilla, flour or corn - 1 has 50 mg of potassium ? Waffle - 1 four-inch waffle has 50 mg of potassium ? Water chestnuts - ?? cup has 40 mg of potassium Summary ? Potassium is a mineral found in many foods and drinks. It affects how the heart works, and helps keep fluids and minerals balanced in the body. ? The amount of potassium you need each day depends on your age and any existing medical conditions you may have. Your health care provider or dietitian may recommend an amount of potassium that you should have each day. This information is not intended to replace advice given to you by your health care provider. Make sure you discuss any questions you have with your health care provider. Document Revised: 08/05/2018 Document Reviewed: 11/17/2017 [employer] Patient Education ?? 2021 [employer] Hypokalemia Hypokalemia means that the amount of potassium in the blood is lower than normal. Potassium is a chemical (electrolyte) that helps regulate the amount of fluid in the body. It also stimulates muscle tightening (contraction) and helps nerves work properly. Normally, most of the body's potassium is inside cells, and only a very small amount is in the blood. Because the amount in the blood is so small, minor changes to potassium levels in the blood can be life-threatening. What are the causes? This condition may be caused by: ? Antibiotic medicine. ? Diarrhea or vomiting. Taking too much of a medicine that helps you have a bowel movement (laxative)can cause diarrhea and lead to hypokalemia. ? Chronic kidney disease (CKD). ? Medicines that help the body get rid of excess fluid (diuretics). ? Eating disorders, such as bulimia. ? Low magnesium levels in the body. ? Sweating a lot. What are the signs or symptoms? Symptoms of this condition include: ? Weakness. ? Constipation. ? Fatigue. ? Muscle cramps. ? Mental confusion. ? Skipped heartbeats or irregular heartbeat (palpitations). ? Tingling or numbness. How is this diagnosed? This condition is diagnosed with a blood test. How is this treated? This condition may be treated by: ? Taking potassium supplements by mouth. ? Adjusting the medicines that you take. ? Eating more foods that contain a lot of potassium. If your potassium level is very low, you may need to get potassium through an IV and be monitored in the hospital. Follow these instructions at home: ? Take [id number] and prescription medicines only as told by your health care provider. This includes vitamins and supplements. ? Eat a healthy diet. A healthy diet includes fresh fruits and vegetables, whole grains, healthy fats, and lean proteins. ? If instructed, eat more foods that contain a lot of potassium. This includes: ? Nuts, such as peanuts and pistachios. ? Seeds, such as sunflower seeds and pumpkin seeds. ? Peas, lentils, and soriano beans. ? Whole grain and bran cereals and breads. ? Fresh fruits and vegetables, such as apricots, avocado, bananas, cantaloupe, kiwi, oranges, tomatoes, asparagus, and potatoes. ? Wilkes juice. ? Tomato juice. ? Red meats. ? Yogurt. ? Keep all follow-up visits as told by your health care provider. This is important. Contact a health care provider if you: ? Have weakness that gets worse. ? Feel your heart pounding or racing. ? Vomit. ? Have diarrhea. ? Have diabetes (diabetes mellitus) and you have trouble keeping your blood sugar (glucose) in your target range. Get help right away if you: ? Have chest pain. ? Have shortness of breath. ? Have vomiting or diarrhea that lasts for more than 2 days. ? Faint. Summary ? Hypokalemia means that the amount of potassium in the blood is lower than normal. ? This condition is diagnosed with a blood test. ? Hypokalemia may be treated by taking potassium supplements, adjusting the medicines that you take, or eating more foods that are high in potassium. ? If your potassium level is very low, you may need to get potassium through an IV and be monitored in the hospital. This information is not intended to replace advice given to you by your health care provider. Make sure you discuss any questions you have with your health care provider. Document Revised: 04/04/2019 Document Reviewed: 04/05/2019 [employer] Patient Education ?? 2021 [employer] Tests Performed Lab Test Name Test Result Date/Time WBC 10.7 x10^3/mcL 10/04/2022 11:40 EST RBC 4.4 x10^6/mcL 10/04/2022 11:40 EST Hgb 12.3 g/dL 10/04/2022 11:40 EST Hct 36.9 % 10/04/2022 11:40 EST MCV 84.4 10/04/2022 11:40 EST MCH 28.1 pg 10/04/2022 11:40 EST MCHC 33.3 g/dL 10/04/2022 11:40 EST RDW-CV 14.1 % 10/04/2022 11:40 EST Platelets 318 x10^3/mcL 10/04/2022 11:40 EST Neutro Auto 76.0 % 10/04/2022 11:40 EST Lymph Auto 12.8 % 10/04/2022 11:40 EST [place] Auto 8.3 % 10/04/2022 11:40 EST Eos, Auto 1.9 % 10/04/2022 11:40 EST Basophil Auto 0.6 % 10/04/2022 11:40 EST Imm Gran Auto 0.4 % 10/04/2022 11:40 EST Neutro Absolute 8.1 x10^3/mcL 10/04/2022 11:40 EST Sodium Level 129 mmol/L 10/04/2022 11:40 EST Potassium Level 3.2 mmol/L 10/04/2022 11:40 EST Chloride Level 93 mmol/L 10/04/2022 11:40 EST CO2 29 mmol/L 10/04/2022 11:40 EST Alk Phos 111 unit/L 10/04/2022 11:40 EST AST 48 unit/L 10/04/2022 11:40 EST ALT 53 unit/L 10/04/2022 11:40 EST BUN 7 mg/dL 10/04/2022 11:40 EST Glucose Level 129 mg/dL 10/04/2022 11:40 EST Creatinine Level 0.94 mg/dL 10/04/2022 11:40 EST eGFR AA 98 10/04/2022 11:40 EST eGFR Non-AA 98 10/04/2022 11:40 EST Calcium Level 9.4 mg/dL 10/04/2022 11:40 EST Protein Total 8.2 g/dL 10/04/2022 11:40 EST Albumin Level 3.8 g/dL 10/04/2022 11:40 EST Bilirubin Total 0.3 mg/dL 10/04/2022 11:40 EST Hemoglobin A1c 6.8 % 10/04/2022 11:40 EST Strep A -IDNOW Not Detected 10/04/2022 10:41 EST Employed in healthcare? No 10/04/2022 11:40 EST Symptomatic as defined by CDC? No 10/04/2022 11:40 EST Hospitalized due to COVID-19? No 10/04/2022 11:40 EST In ICU? No 10/04/2022 11:40 EST Group care resident? No 10/04/2022 11:40 EST status? Not 10/04/2022 11:40 EST SARS-CoV-2(Covid19)PCR(GXpert COVFLURSV) NEGATIVE 10/04/2022 11:40 EST Flu A (GXpert COVFLURSV) NEGATIVE 10/04/2022 11:40 EST Flu B (GXpert COVFLURSV) Neg-GeneXPert 10/04/2022 11:40 EST RSV (GXpert COVFLURSV) Neg-GeneXPert 10/04/2022 11:40 EST Patient/Pellet Machine Operator Signature Patient Name:MIGNON COLORADO I have received this information and my questions have been answered. Patient/Pellet Machine Operator Name: Patient/Pellet Machine Operator Signature: Relationship to Patient: Witness Name/Signature: Date: Electronically Signed on: 10/04/2022 12:45 ESTSigned by:[facility] Discharge summary * Leann George: PERFORM Event Display: Discharge Note Authored Date: * Leann George: PERFORM Event Display: Discharge Note Authored Date: Diagnosis: Sore throat - Adult Comment: Electronically Signed on 10/04/22 01:00 PM Leann George * Leann George: PERFORM Event Display: Discharge Note Authored Date: * Leann George: PERFORM Event Display: Discharge Note Authored Date: Diagnosis: Sore throat - Adult Comment: Electronically Signed on 10/04/22 12:57 PM Leann George Patient Care team information Personnel Name: Marquez Tan MD Address: Address: [address] [address]
--- OUTSIDE RECORDS SUMMARY | 2024-04-28 18:47 | XMS_ITS | Encounter Summary ---
Author Organization [facility] Address [address] [place] [address] Care Team Providers Care Senior Restaurant Manager Name Role Phone Marquez Freed MD Primary Care Provider [phone] Encounter Details Date Type Department Care Team (Late st Contact Info) Description 10/14/2020 Lab Requisition [facility] Medicine - [address] [address] Outr Resulting Lab, Provider Social History Tobacco [...] Procedure Name Priority Date/Time Associated Diagnosis Comments ZZCOVID-19 TEST [facility] PCR Today 10/14/2020 11:47 EST COVID-19 TESTING Routine 10/14/2020 11:4 7 EST documented in this encounter Results * COVID-19 TEST [facility] PCR (10/14/2020 11:47 EST) Swab ENTIRE NASOPHARYNX / Unknown 10/14/2020 11:47 EST 10/14/2020 22:52 EST Provider Outr Resulting Lab MICROBIOLOGY - GENERAL ORDERABLES [facility] [address] [place] [address] * COVID-19 TESTING (10/14/2020 11:47 EST) COVID-19 rt-PCR Result Negative Negative 10/15/2020 13:36 EST [facility] Comment: This test has not been FDA cleared or approved. This test has been authorized by FDA under an EUA for use by authorized laboratories. This test has been authorized only for detection of nucleic acid from 2019-nCoV, not for any other viruses or pathogens. This test is only authorized for the duration of the declaration that circumstances exist justifying the authorization of emergency use of in vitro diagnostic tests for detection and/or diagnosis of 2019-nCoV under section 564(b)(1) of Act, 21 U.S.C ?? 360bbb-3(b) (1), unless the authorization is terminated or revoked sooner. Negative results do not preclude 2019-nCoV infection and should not be used as the sole basis for treatment or other patient management decisions. Negative results must be combined with clinical observations, patient history, and epidemiological information. Performed on the [employer] Fusion instrument Performing Lab [facility] 10/15/2020 13:36 EST [facility] Swab 10/14/2020 11:4 7 EST 10/14/2020 22:52 EST Provider Outr Resulting Lab MICROBIOLOGY - GENERAL ORDERABLES [facility] [address] [place] [address] documented in this encounter Visit Diagnoses Not on filedocumented in this encounter Care Teams Senior Restaurant Manager Relationship Specialty Start Date End Date Marquez Freed MD [address] [place] [address] PCP - General 07/13/15 documented as of this encounter
--- OUTSIDE RECORDS SUMMARY | 2024-04-28 18:47 | XMS_ITS | Referral Summary ---
Author Organization [facility] Address [address] [place] [address] Care Team Providers Care Meat Manager Name Role Phone Marquez Freed MD Primary Care Provider Social History Tobacco Use Types Packs/Day Years Used Date Smoking Tobacco: Never Assessed Sex and Gender Information Value Date Recorded Sex Assigned at Not on file Gender Identity Not on file Sexual Orientation Not on file Plan of Treatment Not on file Care Teams Meat Manager Relationship Specialty Start Date End Date Marquez Freed MD [address] [place] [address] PCP - General 07/13/15
--- OUTSIDE RECORDS SUMMARY | 2024-04-28 18:47 | XMS_ITS | Continuity of Care Document ---
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 09:00A M Not available Not available Not available Annual Wellness Exam 2024 10:00A M Not available Not available Not available Lab PSA, serum or plasma [email or web address] [facility] (Registration ), [address] [place] [address] [place], [address], 04/28/2024 16:11:51 BMP, serum or plasma [email or web address] [facility] (Registration ), [address] [place] [address] [place], [address], 04/28/2024 16:11:51 hemoglobi n A1C, fingersti ck [email or web address] [facility], [address] [place] [address] [address], [address], 04/28/2024 15:07:53 ALT (alanine aminotran sferase), serum or plasma [email or web address] [facility] (Registration ), [address] [place] [address] [place], [address], 04/28/2024 16:11:51 CK (creatine kinase), total, serum [address] [facility] (Registration ), [address] [place] [address] [place], [address], 04/28/2024 16:11:51 lipid panel, serum [address] [facility] (Registration ), [address] [place] [address] [place], [address], 04/28/2024 16:11:51 Referral None recorded. Procedures None recorded. Surgeries None recorded. Imaging None recorded. Medication Orders tobramyci n 0.3 %-dexamet hasone 0.1 % eye drops,darrian pension 2023 024 [facility], [address] [place] [address], [address], 04/28/2024 15:02:15 Patient TargetsNo targets recorded. Patient InstructionsNo instructions recorded. Reason for Referral None Reported. Results Created Date Observation Date Name Description Value Unit Range Abnormal Flag LastModifiedBy Organization Detail LastModifiedTime 04/28/20 24 04/28/2024 hemog lobin A1C, finge rstic k hemoglobin A1C 6.6 % <5.[address] [facility] [place] [address], [place], [address], 04/28/2024 14:35:17 Result Notes None recorded. Problems Name Status Onset Date Resolution Date Notes Provider Name and Address Organization Details Recorded Time Hyperlipidemi a Active 2001 Problem Code: E78.5; Problem Code Type: ICD-10; Not Available [facility] 3 05:24:17 Shoulder joint pain Active 2005 Problem Code: M25.519; Problem Code Type: ICD-10; Not Available [facility] 3 05:24:17 Essential hypertension Active 201003/25/2023 [...] I10; Problem Code Type: ICD-10; Not Available [facility] 3 05:24:17 Gastro-esopha geal reflux disease with esophagitis Active 2005 Problem Code: K21.0; Problem Code Type: ICD-10; Not Available [facility] 3 05:24:17 History of musculoskelet al disease Active 2011 Not Available [facility] 3 05:24:17 Steatosis of liver Active 201410/28/2021 - Comments only - Nadia Freed MD - Continue efforts at calorie and alcohol reduction and recheck LFTs now. Problem Code: K76.0; Problem Code Type: ICD-10; Not Available [facility] 3 05:24:17 General symptom Active 201410/14/2020 - Comments only - Nadia Freed MD - Again recommended reduction Problem Code: R68.89; Problem Code Type: ICD-10; Not Available [facility] 3 05:24:17 Acute upper respiratory infection Completed 201510/31/2015 Problem Code: J06.9; Problem Code Type: ICD-10; Not Available [facility] 3 05:24:17 Pneumonia Completed 201608/12/2017 Problem Code: J18.9; Problem Code Type: ICD-10; Not Available [facility] 3 05:24:18 Chronic sinusitis Completed 201507/31/2016 Problem Code: J32.9; Problem Code Type: ICD-10; Not Available [facility] 3 05:24:18 Acute sinusitis Completed 201509/23/2016 Problem Code: J01.90; Problem Code Type: ICD-10; Not Available [facility] 3 05:24:18 Paresthesia Active 2016 Problem Code: R20.2; Problem Code Type: ICD-10; Not Available [facility] 3 05:24:18 Bronchitis Completed 201702/08/2018 12/28/2017 - Comments only - Dev Ocasio PA-C - Bronchitis with recent hemoptysis. Update chest x-ray. Start antibiotics and steroids. Has done well with this in the past. Recheck if not improving in 3-5 days. Vital signs stable. Problem Code: J40; Problem Code Type: ICD-10; Not Available [facility] 3 05:24:18 Hypokalemia Completed 201806/13/2019 Problem Code: E87.6; Problem Code Type: ICD-10; Not Available [facility] 3 05:24:18 Type 2 diabetes mellitus [...] E11.9; Problem Code Type: ICD-10; Not Available [facility] 3 05:24:18 Adult health examination Active 201910/28/2021 - Comments only - Nadia Freed MD - He had his original 2 Covid shots but declines any boosters, declines all other vaccines now. Problem Code: Z00.00; Problem Code Type: ICD-10; Not Available [facility] 3 05:24:19 Obesity Active 201908/15/2020 - [...] E66.9; Problem Code Type: ICD-10; Not Available [facility] 3 05:24:19 Rosacea Active 202010/14/2020 - Comments only - Nadia Freed MD - Discussion of various ways to manage different aspects of this. Recommend baby shampoo scrubs of the lids to reduce the crustiness. He does not care so much about the acting portion so I am not prescribing erythromycin at this time. Problem Code: L71.9; Problem Code Type: ICD-10; Not Available [facility] 3 05:24:19 Exposure to communicable disease Completed 202010/15/2020 10/14/2020 - Comments only - Nadia Freed MD - Nasal swab sent Problem Code: Z20.828; Problem Code Type: ICD-10; Not Available [facility] 3 05:24:19 Allergic rhinitis Active 202001/11/2023 - Comments only - Nadia Freed MD - Discussed trying a saline rinse including a small amount of one of the topical preps like fluticasone. However in the absence of more severe symptoms I do not think he needs to initiate this now. Problem Code: J30.9; Problem Code Type: ICD-10; Not Available [facility] 3 05:24:19 Dyspnea Active 202003/12/2021 - Comments only - Nadia Freed MD - Is worrisome to me that this is a relatively abrupt change for Dale. That makes me worry about the possibility of coronary disease although he does not have chest pain. EKG today normal, no signs of recent [place]. Will refer him for stress testing. If his dyspnea continues I would also get PFTs; he has had enough occupational exposure to be some risk for silicosis. Problem Code: R06.09; Problem Code Type: ICD-10; Not Available [facility] 3 05:24:19 Injury of head Completed [...] S09.90xA; Problem Code Type: ICD-10; Not Available [facility] 3 05:24:19 Posterior rhinorrhea Active 202106/15/2022 [...] R09.82; Problem Code Type: ICD-10; Not Available [facility] 3 05:24:20 Cough Completed 202209/16/2022 09/15/2022 - Comments only - Joselin MANJARREZ - Negative for COVID and flu as expected. Benign exam. Patient is likely experiencing a postviral cough. Prescription for Tessalon Perles 3 times a day as needed for cough. Recommended to stop Coricidin [id number] ter. Prescription for albuterol inhaler as needed for shortness of breath as he may be experiencing some cold induced bronchospasm when he goes outside. Plenty of rest and fluids. Follow-up if not proving or worsening symptoms. Problem Code: R05.8; Problem Code Type: ICD-10; MOUNIKA CHARLES, EMA [address], [place], [address] , [facility] 4 11:13:03 Chronic maxillary sinusitis Active 202210/21/2022 - Comments only - Nadia Freed MD - As above. He also tried a Maria Isabel pot but it did not relieve any symptoms. Problem Code: J32.0; Problem Code Type: ICD-10; Not Available [facility] 3 05:24:20 Hypo-osmolali ty and or hyponatremia Active 2022 Problem Code: E87.1; Problem Code Type: ICD-10; Not Available [facility] 3 05:24:20 Gastroesophag eal reflux disease Completed 200506/02/2023 Problem Code: 530.81; Problem Code Type: ICD-9; Not Available [facility] 3 05:24:29 Blood chemistry outside reference range Completed 201406/02/2023 03/31/2017 - Comments only - Dev Ocasio PA-C - We will recheck liver function tests. Problem Code: 790.6; Problem Code Type: ICD-9; Not Available [facility] 3 05:24:30 History and physical examination, administrativ e Completed 202010/22/2022 Problem Code: Z02.9; Problem Code Type: ICD-10; Not Available [facility] 3 05:24:33 Acute bronchitis Completed 201803/03/2020 Problem Code: J20.9; Problem Code Type: ICD-10; Not Available [facility] 3 05:24:34 Hyperglycemia Completed 201806/02/2023 Problem Code: R73.9; Problem Code Type: ICD-10; Not Available [facility] 3 05:24:34 General examination of patient Completed 201510/14/2020 Problem Code: Z00.8; Problem Code Type: ICD-10; Not Available [facility] 3 05:24:35 Dyspnea Completed 201603/03/2020 Problem Code: R06.00; Problem Code Type: ICD-10; Not Available [facility] 3 05:24:37 Cough Completed 201610/21/2017 Problem Code: R05; Problem Code Type: ICD-10; MOUNIKA CHARLES, TICKET MACHINE OPERATOR [address], [place], [address] , [facility] 4 11:13:03 Liver function tests outside reference range Completed 201406/02/2023 Problem Code: R94.5; Problem Code Type: ICD-10; Not Available [facility] 3 05:24:38 Carpal tunnel syndrome Completed 201106/02/2023 Problem Code: 354.0; Problem Code Type: ICD-9; Not Available [facility] 3 05:24:39 Hypertensive disorder Completed 201006/02/2023 Not Available [facility] 3 05:24:41 Pre-surgery evaluation Completed 201710/14/2020 Problem Code: Z01.818; Problem Code Type: ICD-10; Not Available [facility] 3 05:24:44 Alcohol abuse Completed 201406/02/2023 Problem Code: 305.00; Problem Code Type: ICD-9; Not Available [facility] 3 05:24:49 Headache Completed 201803/03/2020 Problem Code: R51; Problem Code Type: ICD-10; Not Available [facility] 3 05:24:49 History and physical examination, administrativ e Completed 202205/29/2023 05/12/2023 - Comments only - Joselin MANJARREZ - 1 year card issued due to hypertension and diabetes. He did have trace hemolyzed blood and recommended to follow-up with PCP about this. Problem Code: Z02.9; Problem Code Type: ICD-10; Not Available [facility] 4 05:37:14 Seborrheic dermatitis Active 202207/12/2023 - Comments only - Nadia Freed MD - Great from this is causing the eye irritation. Recommend daily eye scrubs plus ketoconazole shampoo once per week. Problem Code: L21.9; Problem Code Type: ICD-10; Not Available [facility] 4 05:37:14 Asymptomatic microscopic hematuria Completed 202206/11/2023 Problem Code: R31.21; Problem Code Type: ICD-10; Not Available [facility] 4 05:37:14 Acute right otitis media Active 2023 EMA [place] [address], [facility] [address] , [facility] 4 09:54:32 Cough Active 202309/15/2022 - Comments only - Joselin MANJARREZ - Negative for COVID and flu as expected. Benign exam. Patient is likely experiencing a postviral cough. Prescription for Tessalon Perles 3 times a day as needed for cough. Recommended to stop Coricidin [id number]-[id number] ter. Prescription for albuterol inhaler as needed for shortness of breath as he may be experiencing some cold induced bronchospasm when he goes outside. Plenty of rest and fluids. Follow-up if not proving or worsening symptoms. Problem Code: R05.8; Problem Code Type: ICD-10; EMA [place] [address], [place], [address] , [facility] 4 11:13:03 Chronic conjunctiviti s Active [address], [place], [address] , [facility] 4 15:00:58 Problem Notes None recorded. Medical Equipment None Reported. Allergies Allergen ID Allergen Name Allergen Category Reaction Reaction Severity Criticality Documentation Date Start Date Code Code System Note Provider Name and Address Organization Details Recorded Time sulfadiaz ine medicatio n other moderate Not available 07/16/20232006 50599 RxNorm No react ion enter ed Daniela lugo, [facility] 4 18:17:10 09660 codeine medicatio n other moderate Not available 07/16/20232005 2670 RxNorm INTOL Daniela Paulino [facility] 4 18:16:31 36212 Tdvax medicatio n other severe Not available 01/12/20242021 56859 30 RxNorm No react ion enter ed Daniela Lora [facility] 4 18:18:16 25509 verapamil medicatio n other mild Not available 01/12/20242019 82776 RxNorm low energ y [facility] 18:20[facility] Medications Name Sig Start Date Stop [...] a day 03/19 completed Unavaila ble at [facility], new script to Luis Enrique Not Available [...] e 137 mcg (0.1 %) nasal spray [place] 1-2 spray into both nostrils twice a [...] e 50 mcg/actua tion nasal spray,darrian pension [place] 2 spray into both nostrils once a [...] Available Vitals Date Recorded Body height Body mass index (BMI) Body weight Oxygen saturation Oxygen saturation in Arterial blood by Pulse oximetry Heart rate Systolic blood pressure Diastolic blood pressure Provider Name and Address Organization Details Last Updated DateTime 4 167.64 cm 34.8 kg/m2 49384.5 1 g 97 % 97 % 99 /min 128 mm[Hg] 76 mm[Hg] BRAD FLORES MA [facility] 14:22:04 Social History Question Answer Notes LastModified by Organizat ion Details LastModified Time Tobacco Smoking Status Never Smoker ABEL TERESA, [facility] 09/21/2023 09:37:58 Would You Say That, In General, Your Health Is Good [email or web address] Information not available 04/28/2024 How Often Does Anyone, Including Family, Physically Hurt You? Never [email or web address] Information not available 04/28/2024 How Often Does Anyone, Including Family, Insult Or Talk Down To You? Never [email or web address] Information no t available 04/28/2024 How Often Does Anyone, Including Family, Threaten You With Harm? Never Information not available 04/28/2024 How Often Does Anyone, Including Family, Scream Or Curse At You? Never [email or web address] Information not available 04/28/2024 How Often In The Past Year Have You Used Marijuana (including Smoking, Vaping, Dabbing, Or Edibles)? Never Information not available 04/28/2024 How Often In The Past Year Have You Used Prescription Medications That Were Not Prescribed To You? Never [email or web address] Information not available 04/28/2024 How Often In The Past Year Have You Taken Your Own Prescription Medication More Than The Way It Was Prescribed Or For Different Reasons Than Its Intended Purpose? Never [email or web address] Information no t available 04/28/2024 How Often In The Past Year Have You Used Other Drugs (for Example, Heroin, Cocaine, Meth, Salvia, Inhalants)? Never [email or web address] Information not available 04/28/2024 Date Of Most Recent SBINS 04/28/2024 [email or web address] Information not available 04/28/2024 What Was The [...] (COVID-19) vaccine, UNSPECIFIED 12/31/2020 completed Not Available [facility] 07/16/2023 05:19:31 SARS-COV-2 (COVID-19) vaccine, UNSPECIFIED 01/31/2021 completed Not Available [facility] 07/16/2023 05:19:31 Past Encounters Encounter ID Performer Location Encounter Start Date Encounter Closed Date Diagnosis/Indication Diagnosis SNOMED-CT Code [id number] NADIA FREED MD [address] [address] 04/28/2024 14:13:17 04/28/2024 15:15:39 Type 2 diabetes mellitus without complication 199062749 Chronic conjunctivitis 26392482 Essential hypertension 39323106 Gastro-eso phageal reflux disease with esophagitis 733129340 Hyperlipidemia 14403644 Screening for malignant neoplasm of prostate 349044485 Health Concerns Section Related Observation LastModified by Organization Detai ls LastModified Time None Recorded Concern Status LastModified by Organization Details LastModified Time None Recorded Payers Encounter Date Sequence Insurance Name Policy Number Policy Desai Covered Member ID Desai Member ID Guarantor Name 04/28/2024 1 *SELF PAY* Ra juan [place] Notes Date Note Type Note Provider Name and Address Organization Details Recorded Time 04/28/2024 text/html HPI Notes: Here for [facility] Dale is more careful with diet, having [...] NADIA FREED MD [address], [place], [address], [facility], [facility]. 04/28/2024 16:22:36
--- OUTSIDE RECORDS SUMMARY | 2024-04-28 18:47 | XMS_ITS | Encounter Summary ---
[place] [address] Care Team Providers Care Recessing Machine Operator Name Role Phone Marquez Freed MD Primary Care Provider [phone] Reason for Visit * Auth/Cert Specialty Diagnoses / Procedures Referred By Faustino t Referred To Contact Diagnoses CHRONIC PAIN OF BOTH SHOULDERS. LEFT SHOULDER PAIN AND WEAKNESS, EVALUATING FOR ROTATOR CUFF TEAR. Procedures PRG UNLISTED MRI PROCEDURE MRI WITH ANESTHESIA ([facility] *) Referral ID Status Reason Start Date Expiration Date Visits Re quested Visits Authorized [id number] 1 1 Encounter Details Date Type Department Care Team (Late st Contact Info) Description 11/04/2017 10:30 AM EST - 11/04/2017 11:30 [place] [address] RESOURCE, ANESTHESIA-MAREK None MRI WITH ANESTHESIA ([facility] *) Social History Tobacco Use Types Packs/Day Years [...] Sign Reading Time Taken Comments Blood Pressure 136/98 11/04/2017 12:07 PM EST Pulse 77 11/04/2017 12:07 PM EST Temperature 36.5 ??C (97.7 ??F) 11/04/2017 12:[address] Respiratory Rate 16 11/04/2017 12:07 PM EST Oxygen Saturation 97% 11/04/2017 12:07 PM EST Inhaled Oxygen Concentration - - Weight 97.1 kg (214 lb) 11/04/2017 9:53 AM EST Height - - Body Mass Index 33.52 10/19/2017 10:14 AM EST documented in this encounter Discharge Instructions * Discharge Instructions* Kimberly Erickson RN - 11/04/2017 12:12 PM EST POST ANESTHESIA INSTRUCTIONS Go home, rest, use caution on stairs. Change positions slowly. Do not smoke if you are alone. Diet light to regular as tolerated today. If nausea occurs start with clear liquids and progress slowly. No driving, operating machinery, alcoholic beverages and no important decisions for 24 hours. Monitor IV site for signs and symptoms of infection: increasing redness, swelling, foul drainage, if occurs contact M.D. Patients who have had endotrachial tubes (this tube, used by anesthesia department, is passed down your throat after you are asleep, to ensure safe air passage during your operation). A sore throat is normal due to the tube. Cold liquids or soothing lozenges will help ease the discomfort. The generalized muscle aches are due to the medication given to you just before the tube is inserted. As the medication wears off, you may develop muscle soreness, which usually goes away in 12-24 hours. documented in this encounter Medications at Time of Discharge Medication Sig Dispensed Refills Start Date End Date verapamil (COVERA HS) 240 mg 24 hr tablet Take 240 mg by mouth nightly. losartan (COZAAR) 50 mg tabletIndications:hyper tension Take 100 mg by mouth daily. Indications: Hypertension citalopram (CELEXA) 20 mg tablet Take 20 mg by mouth nightly. documented as of this encounter Plan of Treatment Not on file documented as of this encounter Procedures Procedure Name Priority Date/Time Associated Diagnosis Comments MRI WITH ANESTHESIA ([facility] *) 11/04/2017 6:30 PM EST CHRONIC PAIN OF BOTH SHOULDERS. LEFT SHOULDER PAIN AND WEAKNESS, EVALUATING FOR ROTATOR CUFF TEAR. documented in this encounter Visit Diagnoses Not on filedocumented in this encounter Care Teams Recessing Machine Operator Relationship Specialty Start Date End Date Marquez Freed MD [address] [address] PCP - General 10/07/10 documented as of this encounter
--- OUTSIDE RECORDS SUMMARY | 2024-04-28 18:47 | XMS_ITS | Encounter Summary ---
Author Organization [facility] Address [address] [place] [address] Care Team Providers Care Algologist Name Role Phone Unavailable Primary Care Provider Unavailabl e Encounter Details Date Type Department Care Team (Latest Contact Info) Description 05/12/2002 15:15 EDT Hospital Encounter [facility] - Other [address], [place] [id number] Sabrina Carcamo MD [address] [place] [address] [address] [place] [address] Discharge Disposition: Auto Discharge Social History Tobacco Use Types Packs/Day Years Used Date Smoking Tobacco: Never Assessed Sex and Gender Information Value Date Recorded Sex Assigned at Not on file Gender Identity Not on file Sexual Orientation Not on file documented as of this encounter Discharge Disposition Disposition Code Departure Means Destination Auto Discharge documented in this encounter Plan of Treatment Not on file documented as of this encounter Procedures Procedure Name Priority Date/Time Associated Diagnosis Comments CERVICAL SPINE AP&LAT Routine 05/12/2002 16:37 EDT ALDOLASE Routine 05/12/2002 15:16 EDT MYOGLOBIN, SERUM Routine 05/12/2002 15:1 6 EDT HEMOGLOBIN A1C Routine 05/12/2002 15:16 EDT CK Routine 05/12/2002 15:16 EDT documented in this encounter Results * CERVICAL SPINE AP&LAT (05/12/2002 16:37 EDT) Anatomical Region Laterality Modality Other 05/12/2002 16:3 7 EDT Narrative 06/03/2009 4:23 EDT PAIN AND NUMBNESS SHOULDER, ELBOW AND HANDS ??W/ INCREASED ACHING ARMS CONICAL RIB V'S FIBEROUS BAND 05-12-02 CERVICAL SPINE: No comparison. AP and lateral views. Lateral examination is slightly suboptimal as the C7-T1 disc space is not completely visualized. Intervertebral disc spaces and vertebral body heights are grossly within normal limits. No fracture or subluxation is seen. No cervical ribs are present. D: 05-19-02 T: 05-20-02 Procedure Note Eddie Pena MD - 06/03/2009 PAIN AND NUMBNESS SHOULDER, ELBOW AND HANDS W/ INCREASED ACHING ARMS CONICAL RIB V'S FIBEROUS BAND 05-12-02 CERVICAL SPINE: No comparison. AP and lateral views. Lateral examination is slightly suboptimal as the C7-T1 disc space is not completely visualized. Intervertebral disc spaces and vertebral body heights are grossly within normal limits. No fracture or subluxation is seen. No cervical ribs are present. D: 05-19-02 T: 05-20-02 Sabrina Carcamo MD IMG DIAGNOSTIC IMAGI NG ORDERABLES * MYOGLOBIN (05/12/2002 15:16 EDT) Myoglobin, Serum 0.03Unit: ug/mL(Note) -- EXPECTED VALUES -- ? (Ref Range) 0.00 to 0.09 ? [facility] 05/12/2002 15:1 6 EDT 05/12/2002 15:22 EDT Sabrina Carcamo MD CHEMISTRY & BLOOD GA S ORDERABLES Performing Organization Address [facility] de Phone Number [facility] [address] [place] [address] * CK (05/12/2002 15:16 EDT) CK 218 57 - 374 U/L [facility] 05/12/2002 15:1 6 EDT 05/12/2002 15:22 EDT Sabrina Carcamo MD CHEMISTRY & BLOOD GA S ORDERABLES Performing Organization Address [facility] de Phone Number [facility] [address] [place] [address] * (ABNORMAL) ALDOLASE (05/12/2002 15:16 EDT) Pathologist [facility] Aldolase 10.7Unit: U/L(Note) -- EXPECTED VALUES -- ? (Ref Range) <7.4 ? TEST PERFORMED OR REFERRED BY [facility] ? [address] ? [place] [address] ? [employer]: ? Gary Ledezma M.D. ?(H) [facility] 05/12/2002 15:1 6 EDT 05/12/2002 15:22 EDT Sabrina Carcamo MD CHEMISTRY & BLOOD GA S ORDERABLES [facility] [address] [place] [address] * HEMOGLOBIN A1C (05/12/2002 15:16 EDT) Hemoglobin A1C 5.2 % [facility] Comment: <6% Normal Range <7% Recommended goal by ADA guidelines 7-8% Suboptimal by ADA guidelines >8% Further action suggested by ADA guidelines 05/12/2002 15:1 6 EDT 05/12/2002 15:22 EDT Sabrina Carcamo MD CHEMISTRY & BLOOD GA S ORDERABLES [facility] [address] [place] [address] documented in this encounter Visit Diagnoses Not on filedocumented in this encounter
--- OUTSIDE RECORDS SUMMARY | 2024-04-28 18:47 | XMS_ITS | Encounter Summary ---
Author Organization [facility] Address [facility] [place] [address] Care Team Providers Care Telegraphic Typewriter Mechanic Name Role Phone Marquez Freed MD Primary Care Provider [phone] Encounter Details Date Type Department Care Team (Latest Contact Info) Description 11/30/2017 9:22 AM EDT - 11/30/2017 11:59 PM EDT Hospital Encounter XRay at [address] [place] [address] Otis Pritchard MD [facility] [place] [address] Chronic left shoulder pain Discharge Disposition: Home Social History Tobacco Use Types Packs/Day Years [...] on file documented as of this encounter Medications at Time of Discharge Medication Sig Dispensed Refills Start Date End Date hydroCHLOROthiazide (HYDRODIURIL) 25 mg Tablet Take 12.5 mg by mouth daily. verapamil (COVERA HS) 240 mg 24 hr tablet Take 240 mg by mouth nightly. losartan (COZAAR) 50 mg tabletIndications:hyper tension Take 100 mg by mouth daily. Indications: Hypertension citalopram (CELEXA) 20 mg tablet Take 20 mg by mouth nightly. documented as of this encounter Plan of Treatment Not on file documented as of this encounter Procedures Procedure Name Priority Date/Time Associated Diagnosis Comments XR FLUORO INJECTION DRAINAGE JOINT LG LEFT Routine 11/30/2017 10:29 AM EDT Chronic left shoulder pain documented in this encounter Results * XR Fluoro Guided [...] electronic medical record and allergies, as per [facility] protocol. The patient was placed supine on [...] flare were reviewed with patient. Procedure Note Gerson Roberson APRN - 11/30/2017 HISTORY: PAIN,POST-TRAUMATIC OA LEFT SHOULDER GLENOHUMERAL JOINT INJECTION UNDER FLUOROSCOPY TECHNIQUE: After an extensive conversation with the patient regarding risks andbenefits, oral and written consent were obtained.? A pre- procedural time-out was performed, including review of the patient's relevant electronic medicalrecord and allergies, as per [facility] protocol. The patient was placed supine on [...] encounter Visit Diagnoses Diagnosis Chronic left shoulder pain Pain in joint, shoulder region documented in this encounter Administered Medications Inactive Administered Medications - up to 3 most recent administrations Medication Order MAR Action Action Date Dose Rate Site ROpivacaine (PF) 5 mg/mL (0.5 %) 4 mL with triamcinolone acetonide 40 mg injection Intra-articular, ONCE, 1 dose, On 11/30/17 at 1100 Given 11/30/2017 10:30 AM EDT documented in this encounter Care Teams Telegraphic Typewriter Mechanic Relationship Specialty Start Date End Date Marquez Freed MD [address] [address] PCP - General 10/07/10 documented as of this encounter
--- OUTSIDE RECORDS SUMMARY | 2024-04-28 18:47 | XMS_ITS | Encounter Summary ---
[place] [address] Care Team Providers Care Sales Branch Manager Name Role Phone Marquez Freed MD Primary Care Provider [phone] Reason for Referral * Diagnostic Test (Routine) - Denied Specialty Diagnoses / Procedures Referred By Contac t Referred To Contact Radiology Diagnoses Chronic pain of both shoulders Procedures MRI Shoulder wo Contrast Left (Generic) Liss Santizo PA [facility] [address] [place] [address] Referral ID Status Reason Start Date Expiration Date V isits Requested Visits Authorized [id number] Denied Specialty Service Requested 10/19/2017 10/19/2018 1 0 Reason for Visit * Diagnostic Test (Routine) - Denied Specialty Diagnoses / Procedures Referred By Contac t Referred To Contact Radiology Diagnoses Chronic pain of both shoulders Procedures MRI Shoulder wo Contrast Left (Generic) Liss Santizo PA [facility] [address] [place] [address] Referral ID Status Reason Start Date Expiration Date V isits Requested Visits Authorized [id number] Denied Specialty Service Requested 10/19/2017 10/19/2018 1 0 Encounter Details Date Type Department Care Team (Latest Contact Info) Description 11/04/2017 10:30 AM EST - 11/04/2017 11:59 PM EST [place] [address] Otis Pritchard MD [facility] [place] [address] Chronic pain of both shoulders Discharge Disposition: Home Social History Tobacco Use [...] Name Priority Date/Time Associated Diagnosis Comments MRI SHOULDER LEFT WO CONTRAST Routine 11/04/2017 12:04 PM EST Chronic pain of both shoulders documented in this encounter Results * MRI Shoulder wo Contrast Left (Generic) (11/04/2017 12:04 PM EST) Anatomical Region Laterality Modality Shoulder Left Magnetic Resonan ce Impressions 11/04/2017 2:07 PM EST 1. ??Rotator cuff tendinosis, with low-grade partial-thickness articular-surface and bursal-surface tearing of the supraspinatus, as well as high-grade partial-thickness articular-surface tearing of the craniad fibers of the subscapularis. No full-thickness tendon tear, no tendon retraction, and no muscle atrophy. 2. ??Mild focal split tearing of the long head of the biceps tendon. 3. ??Glenohumeral joint OA, characterized by deep cartilage fissuring on both sides of the joint. 4. ??Postsurgical changes of acromioplasty/distal clavicle resection. Small amount of subacromial/subdeltoid bursal fluid, slightly increased since 2010, compatible with mild bursitis. Narrative 11/04/2017 2:07 PM EST EXAMINATION: MRI SHOULDER WO CONTRAST LEFT (GENERIC) CLINICAL HISTORY: Left shoulder pain and weakness; evaluate for rotator cuff tear TECHNIQUE: MRI of the left shoulder was performed without intravenous contrast COMPARISON: Left shoulder MRI dated 10/06/2010. Attention is also directed to the left shoulder radiograph dated 01/22/2010 and 10/19/2017. FINDINGS: Some sequences are degraded by motion artifact. Glenohumeral joint: There is no fracture or bone marrow edema. Glenohumeral alignment is normal. There is deep fissuring of the articular cartilage on both sides of the glenohumeral joint. There is no glenohumeral joint effusion. Acromioclavicular joint: The acromion has a curved morphology. There are postsurgical changes of acromioplasty/distal clavicle resection. Rotator cuff and bursae: There is diffuse rotator cuff tendinosis, with low-grade partial-thickness articular-surface tearing of the supraspinatus tendon (series 8 image 15) as well as low-grade partial-thickness bursal-surface tearing of the supraspinatus tendon (series 8 image 12). There is also high-grade partial-thickness articular-surface tearing of the craniad fibers of the subscapularis tendon (series 13 images 20-22), new since 2010. There is no full-thickness tendon tear, no tendon retraction, and no muscle atrophy. There is a small amount of subacromial/subdeltoid bursal fluid, slightly increased since 2010, compatible with mild bursitis. Biceps tendon and glenoid labrum: There is mild focal split tearing of the long head of the biceps tendon, best seen on series 12 image 11. There are diffuse degenerative changes of the labrum. Procedure Note Citlaly Robles MD - 11/04/2017 EXAMINATION: MRI SHOULDER WO CONTRAST LEFT (GENERIC) CLINICAL HISTORY: Left shoulder pain and weakness; evaluate for rotatorcuff tear TECHNIQUE: MRI of the left shoulder was performed without intravenous contrast COMPARISON: Left shoulder MRI dated 10/06/2010. Attention is also directed to theleft shoulder radiograph dated 01/22/2010 and 10/19/2017. FINDINGS: Some sequences are degraded by motion artifact. Glenohumeral joint: There is no fracture or bone marrow edema.Glenohumeral alignment is normal. There is deep fissuring of the articular cartilage onboth sides of the glenohumeral joint. There is no glenohumeral joint effusion. Acromioclavicular joint: The acromion has a curved morphology. There are postsurgical changes of acromioplasty/distal clavicle resection. Rotator cuff and bursae: There is diffuse rotator cuff tendinosis, with low-grade partial-thickness articular-surface tearing of thesupraspinatus tendon (series 8 image 15) as well as low-grade sfaydhr-vcafieuilnigipn-adxfcud tearing of the supraspinatus tendon (series 8 image 12). There is also high-grade partial-thickness articular-surface tearing of the craniadfibers of the subscapularis tendon (series 13 images 20-22), new since 2010. Thereis no full-thickness tendon tear, no tendon retraction, and no muscle atrophy.There is a small amount of subacromial/subdeltoid bursal fluid, slightlyincreased since 2010, compatible with mild bursitis. Biceps tendon and glenoid labrum: There is mild focal split tearing of thelong head of the biceps tendon, best seen on series 12 image 11. There arediffuse degenerative changes of the labrum. IMPRESSION 1. Rotator cuff tendinosis, with low-grade ocdgnzr-aprzeaoaqpbakzsokg-icwbrcw and bursal-surface tearing of the supraspinatus, as well as high-grade partial-thickness articular-surface tearing of the craniad fibers of the subscapularis. No full-thickness tendon tear, no tendon retraction, andno muscle atrophy. 2. Mild focal split tearing of the long head of the biceps tendon. 3. Glenohumeral joint OA, characterized by deep cartilage fissuring onboth sides of the joint. 4. Postsurgical changes of acromioplasty/distal clavicle resection.Small amount of subacromial/subdeltoid bursal fluid, slightly increased [id number], compatible with mild bursitis. Otis Pritchard MD IMG MRI ORDERABLES documented in this encounter Visit Diagnoses Diagnosis Chronic pain of both shoulders Pain in joint, shoulder region documented in this encounter Care Teams Sales Branch Manager Relationship Specialty Start Date End Date Marquez Freed MD [address] [place] [id number] PCP - General 10/07/10 documented as of this encounter
--- OUTSIDE RECORDS SUMMARY | 2024-04-28 18:48 | XMS_ITS | Encounter Summary ---
Author Organization [facility] [place] [address] Care Team Providers Care Head Baker Name Role Phone Marquez Freed MD Primary Care Provider [phone] Encounter Details Date Type Department Care Team (Latest Contact Info) Description 03/16/2012 6:49 AM EDT - 03/16/2012 10:00 AM EDT Hospital Encounter [facility] [place] [address] Otis Pritchard MD [facility] [place] [address] Bilateral carpal tunnel syndrome (Primary Dx) Discharge Disposition: Home Social History Tobacco Use Types Packs/Day Years Used Date Smoking Tobacco: Never Alcohol Use Standard Drinks/Week Comments Yes 62 (1 standard drink = 0.6 oz pu re alcohol) Sex and Gender Information Value Date Recorded Sex Assigned at Not on file Gender Identity Not on file Sexual Orientation Not on file documented as of this encounter Last Filed Vital Signs Vital Sign Reading Time Taken Comments Blood Pressure 120/70 03/16/2012 9:23 AM EDT Pulse 65 03/16/2012 9:23 AM EDT Temperature 36.5 ??C (97.7 ??F) 03/16/2012 9:18 AM ED T Respiratory Rate 18 03/16/2012 6:57 AM EDT Oxygen Saturation 96% 03/16/2012 9:23 AM EDT Inhaled Oxygen Concentration - - Weight 95.3 kg (210 lb) 03/16/2012 6:57 AM EDT Height 170.2 cm (5' 7) 03/16/2012 6:57 AM EDT Body Mass Index 32.89 03/16/2012 6:57 AM EDT documented in this encounter Discharge Instructions * Discharge Instructions* Rasheeda Johnston RN - 03/16/2012 9:37 AM EDT General Anesthesia Discharge Instructions Go home and rest. You may be sleepy for several hours. Take it easy as sudden position changes may cause nausea. Be careful on stairs, as you may be unsteady on your feet. Do not smoke if you are alone. Follow a light to regular diet as tolerated today. If nausea occurs, start with clear liquids, and progress slowly to a regular diet. Do not drive, operate machinery, drink alcoholic beverages, or make important decisions for 24 hours after having general anesthesia. The medications given may change your reaction time or judgement without your awareness. IV site -- slight redness is normal, you can use warm compresses. If tenderness and redness increases or foul drainage occurs, please contact your M.D. Patients who have had endotracheal tubes. (this tube, used by the anesthesia department, is passed down your throat [...] muscle soreness, which usually goes away in 12 - 24 hours. Narcotic pain medications can cause constipation, please ask the surgeons office what they recommend for prevention of this. Some non-pharmaceutical means of constipation prevention include increasing intake of fluids, eating more fruits and vegetables as well as fruit juices. [facility] 29/03 ask for your doctor contracting manager * Patient Instructions* Andrez Dunlap - 03/16/2012 8:27 AM EDT Orthopaedic Surgery Discharge Instructions Surgery: Left Carpal Tunnel Release Diet: You may eat a regular diet as tolerated. Driving: No, not until you are cleared to do so by your Orthopedic clinic. Ideally you should not drive while you are on narcotic pain meds as these can affect judgement and reaction time. Call your Surgeon with any questions. Medications: 1. The pain medication you are on can cause constipation so increase your intake of fluids and fiber while you are on them. You can also take an ltnd-rle-kpyzeev stool softener, colace or senna, to facilitate a bowel movement. 2. If you need a renewal on your narcotic pain medication, you need to give the Orthopedic clinic enough time to process your request. This can take up to three days, so plan accordingly. Wound: Keep operative hand clean and dry, do not submerge in water until follow- up. Leave your splint and dressings on until follow-up. Activity: Light activity only in the operative hand. Be careful on stairs, as you may be unsteady on your feet. You should also keep the hand elevated after surgery. This will help to decrease swelling and improve comfort. Ice may be applied but make sure it is double- bagged as to not get the incision or dressings wet. Call your doctor (#[phone]) if: ?? You have a fever > 101.5 or experience chills Increased discharge from the incision Any redness or swelling around the incision Increased pain or change in the pain that is not controlled by your pain medications WHERE TO CALL WITH QUESTIONS [facility] Ask for the resident contracting manager for your provider [facility] (7:00am - 5:00pm) documented in this encounter Medications at Time of Discharge Medication Sig Dispensed Refills Start Date End Date losartan (COZAAR) 50 mg tabletIndications:hyp ertension Take 100 mg by mouth daily. Indications: Hypertension citalopram (CELEXA) 20 mg tablet Take 20 mg by mouth nightly. ibuprofen (ADVIL;MOTRIN) 800 mg tablet Take 800 mg by mouth every 8 hours as needed. 12/29/2012 OXYcodone (ROXICODONE) 5 mg immediate release tablet Take 1-2 tablets by mouth every 4 hours as needed for Pain. 30 tablet 0 03/16/2012 06/08/2012 acetaminophen (ACETAMINOPHEN PAIN RELIEF) 500 mg tablet Take 2 tablets by mouth every 8 hours as needed for Pain. 30 tablet 1 03/16/2012 03/17/2013 pantoprazole (PROTONIX) 40 mg tabletIndications:Marissa n,GI disease Take 1 tablet by mouth daily. 90 tablet 0 02/12/2012 10/19/2017 loratadine (CLARITIN) 10 mg tablet Take 10 mg by mouth daily as needed. 10/19/2017 amlodipine (NORVASC) 10 mg tablet Take 10 mg by mouth daily. 12/29/2012 documented as of this encounter H&P Notes * Otis Pritchard MD - 03/16/2012 7:09 AM EDT The patient's history and physical exam have been reviewed and completed. There has been no interval change from that of the pre-operative history and physical exam done within the last 30 days. documented in this encounter Miscellaneous Notes * Miscellaneous - Provider, Scanning - 03/16/2012 10:27 PM EDT * Miscellaneous - Provider, Scanning - 03/16/2012 10:04 PM EDT * Miscellaneous - Provider, Scanning - 03/16/2012 1:00 PM EDT * Op Note - Otis Pritchard MD - 03/16/2012 9:18 AM EDT DATE OF PROCEDURE: 03/16/2012. SURGICAL STAFF/ASSISTANTS Otis Pritchard M.D. Andrez Dunlap M.D. PREOPERATIVE DIAGNOSIS: Left carpal tunnel syndrome. POSTOPERATIVE DIAGNOSES: 1. Carpal tunnel syndrome. 2. Flexor tenosynovitis. PROCEDURES PERFORMED: 1. Left carpal tunnel release (62143). 2. Left flexor tenosynovectomy. 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 I have followed him with bilateral upper extremity complaints for several years. Clinical examination is consistent with bilateral carpal tunnel syndrome. This is confirmed clinically as well as with EMG nerve conduction studies. In light of the fact, he has not improved to his satisfaction with less invasive treatment, he is taken to the operating room at this time for the above-mentioned procedure. OPERATIVE FINDINGS/OPERATIVE PROCEDURE: The patient was taken to the operating room and placed supine on the operating table. After a time-out was performed as per [facility] protocol, his left upper extremity was prepped and draped in the usual sterile fashion. He was given IV sedation. Arm was exsanguinated with a sterile Dewey wrap and tourniquet inflated to 250 mmHg. Median nerve block with 1% Xylocaine and 0.25% Marcaine without epinephrine was then placed. A longitudinal incision was made in line with the radial aspect of the fourth ray and the palm. It is carried down through skin and subcutaneous tissue. Hemostasis was obtained where necessary using cautery. Loupe magnification was used throughout the case. Palmar fascia was divided in the direction of its fibers and the underling transverse carpal ligament was identified. It was then divided under direct vision on the ulnar side of carpal tunnel. Care was taken to identify and protect the median nerve throughout the dissection. With subcutaneous dissection, a retractor was appropriately placed. The distal portion of volar forearm fascia was also divided under direct vision. At that point, I was able to pass my little finger proximally proximal to the volar wrist crease without difficulty. He had a very thick boggy flexor tenosynovium and a tenosynovectomy was performed with tenotomy scissors. The ulnar side of the median nerve was identified and an epineurotomy was performed until a good fascicular pattern was identified. An epineurectomy was not performed. The wound was then copiously irrigated with bacitracin solution. The skin wound was then closed using alternating vertical mattress and simple interrupted sutures of 5-0 nylon. Xeroform was placed, bulky hand dressing, and a volar splint intrinsic plus position, and tourniquet released. He tolerated the procedures well and was taken to the recovery room in satisfactory condition. * OR Attestation - Otis Pritchard MD - 03/16/2012 9:18 AM EDT I was the attending physician supervising the resident in the above care and I was present with theresident for the entire procedure. documented in this encounter Plan of Treatment Not on file documented as of this encounter Procedures Procedure Name Priority Date/Time Associated Diagnosis Comments MEDIAN NERVE DECOMPRESSION (CARPAL TUNNEL RELEASE) (WRVU 4.97) 03/16/2012 8:22 AM EDT cts documented in this encounter Visit Diagnoses Diagnosis Bilateral carpal tunnel syndrome- Primary Carpal tunnel syndrome documented in this encounter Administered Medications Inactive Administered Medications - up to 3 most recent administrations Medication Order MAR Action Action Date Dose Rate Site ceFAZolin (ANCEF) 2,000 mg in sodium chloride 0.9% 105 mL 2,000 mg (2 g), Intravenous, ONCE, 1 dose, On Wed03/16/12 at 0715, Administer over 30 Minutes, Day of Surgery (Day of Procedure), Indication for (Active or Suspected): Prophylaxis Given by Other 03/16/2012 7:15 AM EDT 2,000 mg 210 mL/hr documented in this encounter Active and Recently Administered Medications Times are shown in EDT. Scheduled Medication Order 03/14/2012 03/15/2012 03/16/2012 ceFAZolin (ANCEF) 2,000 mg in sodium chloride 0.9% 105 mL (COMPLETED) 2,000 mg (2 g), Intravenous, ONCE, 1 dose, On Wed03/16/12 at 0715, Administer over 30 Minutes, Day of Surgery (Day of Procedure), Indication for (Active or Suspected): Prophylaxis 0715 (Given by Other - Provider: Rasheeda Johnston RN - Comment: timber cruiser at signout) PRN Medication Order 03/14/2012 03/15/2012 03/16/2012 BUpivacaine-epiNEPHrine 0.25 %-1:200,000 injection (CANCELED) ONCE PRN, Starting on Wed03/16/12 at 0851, Until Wed03/16/12 at 1223, Intra-Operative (Intra-Procedure), Routine 0851 (Given - Provid er: Otis Pritchard MD - Comment: mixed with 10Ml lidocaine total of 16ML used) documented in this encounter Care Teams Head Baker Relationship Specialty Start Date End Date Marquez Freed MD [address] [place] [id number] PCP - General 10/07/10 documented as of this encounter
--- OUTSIDE RECORDS SUMMARY | 2024-04-28 18:48 | XMS_ITS | Encounter Summary ---
Author Organization [facility] Address [facility] [place] [address] Care Team Providers Care Surface Supervisor Name Role Phone Marquez Freed MD Primary Care Provider [phone] Encounter Details Date Type Department Care Team (Late st Contact Info) Description 06/08/2012 8:29 AM EDT Anesthesia Event Outpatient [place] [address] Gavi Mitchell MD [facility] [place] [address] Alok Meadows MD [facility] [place] [address] Anesthesia Record Procedure Summary Procedure Name Responsible Anesthesiologist Anesthesia Start Time Anesthesia Stop Time MEDIAN NERVE DECOMPRESSION (CARPAL TUNNEL RELEASE) (WRVU 4.97) (Right: Hand) Gavi Mitchell MD 06/08/12 0829 06/08/12 0919 Events Date Time Event Comment 06/08/2012 0813 0829 Start 0919 Stop Meds * Agents No agents on file. * Blood No blood administrations on file. Lines, Drains, and Airways Type Details Placement Removal Incision shoulder; 05/04/22 (LDA cleanup utility RA#[id number]); 1715 (LDA cleanup utility RA#[id number]) 03/24/11 0815 by 05/04/22 1715 by Natanael Dhillon Incision shoulder; 05/04/22 (LDA cleanup utility RA#[id number]); 1715 (LDA cleanup utility RA#[id number]) 09/10/11 0817 by 05/04/22 1715 by Natanael Dhillon Incision 03/16/12; wrist; 05/04/22 (LDA cleanup utility RA#[id number]); 1715 (LDA cleanup utility RA#[id number]) 03/16/12 0000 by Ksenia Cullen RN 05/04/22 1715 by Natanael Dhillon Incision 06/08/12; palm; 05/04/22 (LDA cleanup utility RA#[id number]); 1715 (LDA cleanup utility RA#[id number]) 06/08/12 0000 by Allison Barbour RN 05/04/22 1715 by Natanael Dhillon (RETIRED) Peripheral IV Line - Single Lumen 06/08/12; 0737; 06/08/12; 0933 06/08/12 0737 by Mei Valdes RN 06/08/12 0933 by Claudia De Santiago RN documented in this encounter Social History [...] OR Notes * Anesthesia Postprocedure Evaluation - Gavi Mitchell MD - 06/08/2012 11:32 AM EDT Patient: Dale Colorado Procedure(s) Performed: Procedure(s): MEDIAN NERVE DECOMPRESSION (CARPAL TUNNEL RELEASE) Patient location: PACU Post-op pain: Adequate analgesia Post-op nausea: no nausea or vomiting Last Vitals: Filed Vitals: 06/08/12 0918 BP: 117/73 Pulse: 58 Temp: 36.6 ??C (97.9 ??F) Resp: 20 Post-op cardiovascular and respiratory status: is stable Level of consciousness: awake, alert and oriented Complications: no apparent complications and tolerated the procedure well Fluid Status: normal Gavi Mitchell MD * Anesthesia Preprocedure Evaluation - Gavi Mitchell MD - 06/08/2012 8:11 AM EDT Anesthesia Evaluation Patient summary reviewed and Nursing notes reviewed Airway Mallampati: II TM distance: >3 FB Neck ROM: full Dental - normal exam Pulmonary - negative ROS and normal exam breath sounds clear to auscultation (-) COPD, asthma, shortness of breath and recent URI Cardiovascular - negative ROS and normal exam Exercise tolerance: good (Able to do >= 4 mets) (-) past MS, CAD, CABG/stent and dysrhythmias Neuro/Psych - negative ROS (+) neuromuscular disease (carpal tunnel symptoms R), GI/Hepatic/Renal (+) GERD (GERD sx assoc. with NSAIDs, no issues at present now off NSAIDs, sx were controlled with PPI) well controlled, (-) hiatal hernia Endo/Other - negative ROS Abdominal Anesthesia Plan ASA 2 MAC with intravenous induction Plan for MAC with local. Anesthetic plan and risks discussed with patient and spouse. Plan discussed with GENERAL HARDWARE SALESPERSON and attending. documented in this encounter Miscellaneous Notes * Addendum Note - Emma Johnson - 06/09/2012 9:24 AM EDT Addendum created 06/09/12 0924 by Emma Johnson Modules edited:Anesthesia Events, Anesthesia Responsible Staff documented in this encounter Plan of Treatment Not on file documented as of this encounter Visit Diagnoses Not on filedocumented in this encounter Care Teams Surface Supervisor Relationship Specialty Start Date End Date Marquez Freed MD [address] [place] [id number] PCP - General 10/07/10 documented as of this encounter
--- OUTSIDE RECORDS SUMMARY | 2024-04-28 18:48 | XMS_ITS | Encounter Summary ---
Author Organization [facility] [place] [address] Care Team Providers Care Client Solutions Specialist Name Role Phone Maqruez Freed MD Primary Care Provider [phone] Reason for Referral * Consultation (Routine) - Closed Specialty Diagnoses / Procedures Referred By Faustino connors Referred To Contact Neurology Diagnoses Bilateral carpal tunnel syndrome Hand pain Liss Santizo PA [facility] [place] [address] [facility] [address] [place] [address] Referral ID Status Reason Start Date Expiration Date V isits Requested Visits Authorized [id number] Closed Consult, Test & Treat 12/29/2012 06/27/2013 1 1 Reason for Visit * Reason Comments Right Hand Pain Right hand CTR DOS 1 New symptoms Encounter Details Date Type Department Care Team (Late st Contact Info) Description 12/29/2012 3:15 PM EDT Office Visit [place] [address] Otis Pritchard MD [facility] [place] [address] Bilateral carpal tunnel syndrome (Primary Dx); Hand pain Discharge Disposition: Home Social History Tobacco Use Types Packs/Day Years Used Date Smoking Tobacco: Never Smokeless Tobacco: Never Alcohol Use Standard Drinks/Week Comments Yes 62 (1 standard drink = 0.6 oz pu re alcohol) Sex and Gender Information Value Date Recorded Sex Assigned at Not on file Gender Identity Not on file Sexual Orientation Not on file documented as of this encounter Last Filed Vital Signs Vital Sign Reading Time Taken Comments Blood Pressure 142/94 12/29/2012 3:31 PM EDT Pulse 63 12/29/2012 3:31 PM EDT Temperature - - Respiratory Rate - - Oxygen Saturation - - Inhaled Oxygen Concentration - - Weight - - Height - - Body Mass Index - - documented in this encounter Progress Notes * Liss Santizo PA - 12/29/2012 4:22 PM EDT PATIENT NAME: Dale Colorado AGE: 42 y.o. MR#: [id number] DATE OF VISIT: 12/29/2012 DATE OF INJURY/ONSET: Chronic STAFF: Dr. Pritchard CHIEF COMPLAINT: follow up for bilateral hand numbness HISTORY OF PRESENT ILLNESS: Mr. Colorado is a 42 y.o. year old male who comes into clinic today for follow up regarding the bilateral hands. He underwent carpal tunnel release by Dr. Pritchard in March 2012 for the left and June 2012 for the right. He states that he did have improvement in his symptoms following his surgery, but unfortunately over the past month or so his symptoms have begun to return. He states that he often wakes up with his hands numb in the median nerve distribution. He also finds that he has discomfort at the base of his thumbs and into his fingers with repetitive activity.He states that he is using a palm radha recently and was having significant discomfort and numbness into his hand. He also states that his pain will radiate into his forearm and elbows. He denies having any radicular symptoms. He has not done any treatment since his symptoms have returned. He has not returned to work since our last visit. PHYSICAL EXAM: Mr. Colorado is alert and oriented. He appears in no acute discomfort and is resting comfortably in the exam room. Inspection: Well-healed surgical incisions. No erythema or ecchymosis. No atrophy is noted in the thenar musculature. Palpation: Tender over the volar aspect of the wrist in the location of his incisions. Also tender at the base of his thumbs bilaterally. He does have tenderness over the dorsum of his wrist which does extends was lateral aspect of the elbows bilaterally. ROM/Strength: Full wrist ROM bilaterally. Full thumb and finger ROM with intact FDS, FDP, EPL, FPL bilaterally. Power and pinch sugar controller are equal bilaterally. No evidence of intrinsic hand weakness. Orthopedic testing: Negative Tinel's bilaterally. Mildly positive Phalen's and Durken compression, more on the left than right. Elbow pain is worse with resisted wrist extension. Neurovascular: On exam today he has normal sensation to the median nerve distribution, but he states that in the mornings primarily his thumb and to a lesser degree index and long fingers are numb. He has good distal perfusion bilaterally. RADIOLOGICAL STUDIES: No studies ASSESSMENT: Bilateral hand numbness, wrist and forearm pain following bilateral carpal tunnel release PLAN: Dr. Pritchard also evaluated and spoke with the patient at today's visit. We will plan on repeating his nerve conduction studies to see if there is any evidence of further neural compression. We also recommended resuming wrist splinting to see if this will take some pressure off the median nerve. This may also help with his forearm and elbow pain. We discussed that his pain is not related to carpal tunnel syndrome and he probably has some underlying arthritis or tendinitis in addition to possible nerve irritation. His exam is not overwhelmingly positive in regards to median nerve compression. He will return for follow up after his nerve conduction studies. His workers comp paperwork was filled out today. We will continue his previous restrictions. The patient understands to contact usif they have any other questions or concerns. documented in this encounter Plan of Treatment Scheduled Referrals Name Type Priority Associated Diagnoses Orde r Schedule Referral to Neurology Outpatient Referral Routine Bilateral carpal tunnel syndrome Hand pain Ordered: 12/29/2012 documented as of this encounter Visit Diagnoses Diagnosis Bilateral carpal tunnel syndrome- Primary Carpal tunnel syndrome Hand pain Pain in limb documented in this encounter Care Teams Client Solutions Specialist Relationship Specialty Start Date End Date Marquez Freed MD [address] [address] PCP - General 10/07/10 documented as of this encounter
--- OUTSIDE RECORDS SUMMARY | 2024-04-28 18:48 | XMS_ITS | Encounter Summary ---
Author Organization [facility] [address] Care Team Providers Care Freelance Copywriter Name Role Phone Marquez Freed MD Primary Care Provider [phone] Reason for Visit * Reason Comments Other Encounter Details Date Type Department Care Team (Late st Contact Info) Description 04/11/2013 [place] [phone] Skip Kaba, RN Social History Tobacco Use Types Packs/Day Years [...] encounter Miscellaneous Notes * Telephone Encounter - Candy Leggett LPN - 04/14/2013 2:58 PM EDT Spoke with Dale about his negative results. He states Dr. Stewart's litigation legal secretary said something about having her ultrasound his elbows? He'd like to do that. Message to Dr. Stewart. * Telephone Encounter - Skip Kaba RN - 04/12/2013 2:21 PM EDT I called Dale again and left a message from Dr. Stewart. I have asked him to call back if he has any questions or concerns. * Telephone Encounter - Skip Kaba RN - 04/12/2013 11:46 AM EDT Dale called back and I returned his call but we keep missing each other. * Telephone Encounter - Skip Kaba RN - 04/11/2013 12:53 PM EDT I called Dale and left a message for him to call here so we can discuss message from Dr. Stewart. * Telephone Encounter - Skip Kaba RN - 04/11/2013 12:52 PM EDT Message copied by SKIP KABA on WedApr 11, 2013 12:52 PM ------ Message from: CIARA STEWART Created: WedApr 11, 2013 12:27 PM Regarding: negative results Please let Mr. Colorado know that his blood tests and MRI were negative for any evidence of rheumatoidarthritis. He has an appointment with Orthopedics on April 13. They sent him here with the question of whether the patient has inflammatory arthritis and he does not. He will continue to follow up with them. ----- Message ----- From: Department, Radiology Sent: 04/06/2013 3:29 PM To: Ciara Stewart DO documented in this encounter Plan of Treatment Not on file documented as of this encounter Visit Diagnoses Not on filedocumented in this encounter Care Teams Freelance Copywriter Relationship Specialty Start Date End Date Marquez Freed MD [address] [address] PCP - General 10/07/10 documented as of this encounter
--- OUTSIDE RECORDS SUMMARY | 2024-04-28 18:48 | XMS_ITS | Encounter Summary ---
Author Organization [facility] Address [facility] [place] [address] Care Team Providers Care Tech Ed/Woodshop Teacher Name Role Phone Marquez Freed MD Primary Care Provider [phone] Encounter Details Date Type Department Care Team (Late st Contact Info) Description 10/08/2017 [place] [phone] Gerson Rodriguez Social History Tobacco Use Types Packs/Day Years [...] as of this encounter Miscellaneous Notes * Addendum Note - Gerson Rodriguez - 10/08/2017 2:31 PM ESTAddended by: GERSON RODRIGUEZ on: 10/08/2017 02:31 PM Modules accepted: Orders * Telephone Encounter - Gerson Rodriguez - 10/08/2017 2:27 PM EST I attempted to call the patient to figure out his chief complaint for his appointment on 10/11/17. His daughter answered the phone and informed me that he was not home. I asked her to pass the message to come an hour before his appointment time to for x-rays. She verbalized understanding. documented in this encounter Plan of Treatment Not on file documented as of this encounter Results * XR Shoulder Bilat (Generic) (10/19/2017 9:06 AM EST) Anatomical Region Laterality Modality Shoulder Bilateral Digital Radiogra phy Impressions 10/19/2017 11:56 AM EST 1. ??No acute osseous injury. 2. ??Bilateral interval AC joint decompression 3. ??Loss of RIGHT acromiohumeral interval suggests underlying rotator cuff injury. I have personally reviewed the image(s) and the residents interpretation and agree with the findings, Evelyn Marin at 10/19/2017 11:56 AM Narrative 10/19/2017 11:56 AM EST EXAMINATION: XR SHOULDER BILAT (GENERIC) CLINICAL HISTORY: Bilateral shoulder pain TECHNIQUE: Four views of the bilateral shoulders. COMPARISON: Shoulder radiographs 01/22/2010. Shoulder MRIs 10/06/2010. FINDINGS: Right shoulder: No acute osseous injury. Interval decompression surgery with widened AC interval and attenuated distal clavicle. The glenohumeral joint space is well-preserved. The RIGHT humeral head is high riding with loss of acromiohumeral interval represents rotator cuff injury. No periarticular calcifications. Left shoulder: Interval LEFT AC decompression.. Glenohumeral joint spaces are well preserved. No acute osseous injury. No periarticular calcifications. Procedure Note Evelyn Marin MD - 10/19/2017 EXAMINATION: XR SHOULDER BILAT (GENERIC) CLINICAL HISTORY: Bilateral shoulder pain TECHNIQUE: Four views of the bilateral shoulders. COMPARISON: Shoulder radiographs 01/22/2010. Shoulder MRIs 10/06/2010. FINDINGS: Right shoulder: No acute osseous injury. Interval decompression surgery with widened ACinterval and attenuated distal clavicle. The glenohumeral joint space iswell-preserved. The RIGHT humeral head is high riding with loss of acromiohumeralinterval represents rotator cuff injury. No periarticular calcifications. Left shoulder: Interval LEFT AC decompression.. Glenohumeral joint spaces are wellpreserved. No acute osseous injury. No periarticular calcifications. IMPRESSION 1. No acute osseous injury. 2. Bilateral interval AC joint decompression 3. Loss of RIGHT acromiohumeral interval suggests underlying rotatorcuff injury. I have personally reviewed the image(s) and the residents interpretationand agree with the findings, Evelyn Marin at 10/19/2017 11:56 AM Otis Pritchard MD IMG DX ORDERABLES documented in this encounter Visit Diagnoses Diagnosis Bilateral shoulder pain, unspecified chronicity Bilateral shoulder pain, unspecified chronicity documented in this encounter Care Teams Tech Ed/Woodshop Teacher Relationship Specialty Start Date End Date Marquez Freed MD [address] [place] [id number] PCP - General 10/07/10 documented as of this encounter
--- OUTSIDE RECORDS SUMMARY | 2024-04-28 18:48 | XMS_ITS | Encounter Summary ---
Author Organization [facility] Address [facility] [place] [address] Care Team Providers Care Charter Driver Name Role Phone Marquez Freed MD Primary Care Provider [phone] Reason for Visit * Reason Comments Left Shoulder Pain s/p left shoulder sc ope 09/10/11 Encounter Details Date Type Department Care Team (Late st Contact Info) Description 12/15/2011 10:40 AM EDT [place] [phone] Mandeep Briscoe PA [facility] [place] [address] Status post shoulder surgery (Primary Dx); RCT (rotator cuff tear); Rotator cuff (capsule) sprain; Follow-up examination following surgery, right shoulder arhtroscopy Discharge Disposition: Home Social History Tobacco Use [...] Sign Reading Time Taken Comments Blood Pressure 152/102 12/15/2011 10:42 AM EDT Pulse - - Temperature - - Respiratory Rate - - Oxygen Saturation - - Inhaled Oxygen Concentration - - Weight 97.1 kg (214 lb) 12/15/2011 10:42 AM EDT Height 170.2 cm (5' 7) 12/15/2011 10:42 AM EDT Body Mass Index 33.52 12/15/2011 10:42 AM EDT documented in this encounter Progress Notes * Mandeep Briscoe PA - 12/15/2011 11:53 AM EDT PATIENT NAME: Dale Colorado AGE: 41 y.o. MR#: [id number] DATE OF VISIT: 12/15/2011 DATE OF INJURY/ONSET: Surgery in September 10, [address] Pritchard 1. Left shoulder open distal clavicle resection (1 cm) (78891). 2. Left shoulder arthroscopy with extensive debridement (02482). 3. Left arthroscopic bursectomy and acromioplasty (57826). STAFF: Dr. Malini Santiago CHIEF COMPLAINT: Continued left shoulder pain HISTORY OF PRESENT ILLNESS Mr. Miroslava meade 41 y.o. year old male comes into clinic today for followup appointment in approximately 3 months status post above procedure. The patient states he continues tohave significant discomfort especially in abduction of the left arm. The patient feels that his strength is still significantly decreased. The patient has been going to physical therapy 2 times weekly. The patient has stated that he does not performed a home physical therapy program consistently. Patient also complains of bilateral numbness and tingling into his hands which he had before the surgery and is ready for a bilateral carpal tunnel release. The patient denies any fever/chills or other constitutional signs of infection. PHYSICAL EXAM: Mr. Miroslava meade 41 y.o. is alert and oriented. He appears in no acute discomfort and is resting comfortably in a chair in the exam room. Inspection: On inspection surgical incisions are healed without complication. There is no erythema,edema, tenderness or drainage. There is no evidence of infection. Palpation: Patient has mild tenderness to palpation over the distal clavicle incision. Forward Flexion: 170?? Abduction: 120?? External Rotation: 60?? Internal Rotation: T10 The patient has significant pain in his end ranges of motion of 170?? of forward elevation as well as abduction. Strength: Patient's strength is 4+/5 with forward flexion, external rotation, and empty can. Patient did have significant discomfort or performing this testing. He was able to hold muscle tone against resistance. Orthopedic testing: Patient had positive orthopedic testing on May Damaso, [facility], and [facility]. Neurological: Neurologic examination of the upper extremity is intact with normal motor function ofthe radial, median, ulnar, axillary and musculocutaneous nerves. Sensory function is intact in the radial, median, ulnar, axillary, and lateral antebrachial cutaneous nerve distributions. The hand was well perfused. Radial pulses are 2+ and equal bilateral. RADIOLOGICAL STUDIES: No new radiologic studies for this visit ASSESSMENT: Patient is significantly behind in regards to his range of motion as well as function after subacromial decompression. PLAN: I spent approximately 15 minutes of this 20 minute visit discussing Mr. Colorado's radiologic findings and physical exam findings. I had a very long discussion with the patient regarding his physical therapy and also home program. I discussed with the patient that he would be more likely to make improvement in his physical therapy if he was more consistent with his home program. I am concernedthat the patient may have increased inflammation in his subacromial area at today's appointment. I would like the patient to attain laboratory studies to rule in or rule out any possible low-grade infection. I also discussed with the patient that it was important for him to continue with physical therapy. We will have the patient continue with physical therapy for another 6 weeks. We will plan tosee the patient back in Dr. Pritchard's team clinic. Patient's workers compensation form was filled out at today's visit. I discussed with the patient that I fill out the workers comp forms stating what I feel that he can perform in regards to his work. The patient stated that his work does not have any light-duty. Patient's workers comp form was filled out with restrictions. The patient will be unable to lift above shoulder level or away from his body. Patient stated that he has difficulty lifting over 5 pounds maximally and 1-2 pounds frequently. I discussed with the patient that he should beperforming all lifting with his elbows close to the side. I believe that it would be reasonable to have the patient referred for a work readiness assessment at his next appointment to have a quantitative analysis of his work capacity. The patient understands to contact us if he has any other questions or concerns. documented in this encounter Plan of Treatment Scheduled Orders Name Type Priority Associated Diagnoses Orde r Schedule CBC (with Diff) Lab STAT Status post shoulder surgery Expected: 12/15/2011 (Approximate), Expires: 12/14/2012 documented as of this encounter Procedures Procedure Name Priority Date/Time Associated Diagnosis Comments DIFFERENTIAL, AUTOMATED Routine 12/15/2011 11:44 AM EDT SEDIMENTATION RATE STAT 12/15/2011 11 :44 AM EDT Status post shoulder surgery CBC (WITH DIFF) Routine 12/15/2011 11:44 AM EDT RCT (rotator cuff tear) CRP, CARDIAC RISK (HS CRP) STAT 12/15/2011 11:44 AM EDT Status post shoulder surgery documented in this encounter Results * DIFFERENTIAL, AUTOMATED (12/15/2011 11:44 AM EDT) Neutrophil % 59.9 34.0 - 71.0 % CERNER MILLENNIUM Neutrophil Absolute 3.57 1.50 - 6.30 x10(3)/mcL CERNER MILLENNIUM Lymph % 27.5 19.0 - 53.0 % CERNER MILLENNIUM Lymphocytes Abs 1.6 1.0 - 3.6 x10(3)/mcL CERNER MILLENNIUM Monocyte % 7.7 4.0 - 13.0 % CERNER MILLENNIUM Monocyte Abs 0.5 0.2 - 1.0 x10(3)/mcL CERNER MILLENNIUM Eos % 3.7 0.0 - 7.0 % CERNER MILLENNIUM Eosinophils Abs 0.2 0.0 - 0.5 x10(3)/mcL CERNER MILLENNIUM Basophil % 1.0 0.0 - 2.0 % CERNER MILLENNIUM Baso Absolute 0.1 0.0 - 0.2 x10(3)/mcL CERNER MILLENNIUM Immature Gran % 0.20 0.00 - 0.66 % CERNER MILLENNIUM Comment: Immature granulocytes(IG's)percentage and absolute count will include metamyelocytes, myelocytes, and promyelocytes. Blood smears from CBCs yielding IG's will be scanned manually for concordance. If this scan disagrees with the automated IG or if promyelocytes are noted, a manual differential will be performed. Immature Gran Absolute 0.01 0.00 - 0.05 x10(3)/mcL CERNER MILLENNIUM Blood specimen (specimen) 12/15/2011 11:44 AM EDT 12/15/2011 11:48 AM EDT Otis Pritchard MD HEMATOLOGY ORDERABLE S CERNER MILLENNIUM * (ABNORMAL) CBC (with Diff) (12/15/2011 11:44 AM EDT) White Blood Cell 6.0 4.0 - 10.0 x10(3)/mc L CERNER MILLENNIUM Red Blood Cell 4.58(L) 4.63 - 6.08 x10(6)/mc L CERNER MILLENNIUM Hemoglobin 15.6 13.7 - 17.5 gm/dL CERNER MILLENNIUM Hematocrit 42.7 40.0 - 51.0 % CERNER MILLENNIUM Mean Cell Volume 93.2(H) 79.0 - 92.0 fL CERNER MILLENNIUM Mean Cell Hemoglobin 34.1(H) 25.6 - 32.2 pg CERNER MILLENNIUM Mean Cell Hemoglobin Concentration 36.5 32.0 - 36.5 gm/dL CERNER MILLENNIUM Platelet 285 145 - 370 x10(3)/mc L CERNER MILLENNIUM RDW Standard Deviation 40.2 35.0 - 46.0 fL CERNER MILLENNIUM RDW coefficient of variation 11.9 10.9 - 14.4 % CERNER MILLENNIUM Mean Platelet Volume 9.4 9.0 - 12.0 fL CERNER MILLENNIUM Blood specimen (specimen) 12/15/2011 11:44 AM EDT 12/15/2011 11:48 AM EDT Narrative Resulting Agency Comment Spec In Lab Otis Pritchard MD HEMATOLOGY ORDERABLE S CERINES CHANENNIUM * High Sensitivity CRP (12/15/2011 11:44 AM EDT) C-Reactive Protein High Sensitivity 6.1 mg/L CERNER MILLENNIUM Comment: Interpretations: 1) For cardiac risk assessment, two values (fasting or nonfasting sample acceptable) taken at least 2 weeks apart, should be averaged to provide a more reliable estimate of marker level. ??This laboratory uses the recommendations from the AHA/CDC Scientific Statement for interpretations of future risks of cardiovascular events: ? <1.0 mg/L: low risk 1.0 - 3.0 mg/L: moderate risk >3.0 mg/L: high risk groups for future cardiovascular events 2) The general reference range of apparently healthy individuals using this test is <5.0 mg/L (derived from the test package insert) A few words of caution: For cardiac assessment, when a value >10 mg/L is encountered, there should be a search for an acute inflammatory condition or infection (in patients with acute inflammation, the concentration can increase to >500 mg/L). ??The >10 mg/L should be discarded if such a situation exists, since the risk for coronary heart disease cannot be provided, and a repeat specimen, taken at least two weeks after resolution of the acute inflammatory condition, may allow for appraisal of coronary risk information. Please note that significantly decreased CRP values may be obtained from samples taken from patients who have been treated with carboxypenicillins. References: 1. Pawan CHAN et. al. ??AHA/CDC Scientific Statement: Markers of Inflammation and Cardiovascular Disease. ??Circulation 2003; 107:499-511 2. Corinne PM. ??Clinical applications of C-reactive protein for cardiovascular disease detection and prevention. ??Circulation 2003; 107:363-369 Blood specimen (specimen) 12/15/2011 11:44 AM EDT 12/15/2011 11:48 AM EDT Narrative Resulting Agency Comment Spec In Lab Malini Santiago MD CHEMISTRY ORDERABLES ALEENA FREEDMAN * Sedimentation rate (12/15/2011 11:44 AM EDT) Sedimentation Rate Automated 7 0 - 15 mm/hr ALEENA FREEDMAN Blood specimen (specimen) 12/15/2011 11:44 AM EDT 12/15/2011 11:48 AM EDT Narrative Resulting Agency Comment Spec In Lab Malini Santiago MD HEMATOLOGY ORDERABLE S ALEENA FREEDMAN documented in this encounter Visit Diagnoses Diagnosis Status post shoulder surgery- Primary Other postprocedural status RCT (rotator cuff tear) Complete rupture of rotator cuff Rotator cuff (capsule) sprain Follow-up examination following surgery, right shoulder arhtroscopy Follow-up examination, following unspecified surgery documented in this encounter Care Teams Charter Driver Relationship Specialty Start Date End Date Marquez Freed MD [address] [place] [id number] PCP - General 10/07/10 documented as of this encounter
--- OUTSIDE RECORDS SUMMARY | 2024-04-28 18:48 | XMS_ITS | Encounter Summary ---
Author Organization [facility] [place] [address] Care Team Providers Care Developer Advocate Name Role Phone Marquez Freed MD Primary Care Provider [phone] Encounter Details Date Type Department Care Team (Late st Contact Info) Description 09/10/2011 8:45 AM EST - 09/10/2011 11:30 AM EST Surgery [place] [address] Sofie Pritchard MD [facility] [place] [address] CLAVICULECTOMY, PARTIAL (WRVU 7.39) Social History Tobacco Use Types Packs/Day Years [...] Sign Reading Time Taken Comments Blood Pressure 153/103 09/10/2011 8:49 AM EST Pulse 76 09/10/2011 8:49 AM EST Temperature 36.8 ??C (98.2 ??F) 09/10/2011 7:34 AM ES T Respiratory Rate 16 09/10/2011 8:49 AM EST Oxygen Saturation 94% 09/10/2011 8:49 AM EST Inhaled Oxygen Concentration - - Weight 97.5 kg (214 lb 15.2 oz) 09/10/2011 7:34 AM EST Height 170.2 cm (5' 7) 09/10/2011 7:34 AM EST Body Mass Index 33.67 09/10/2011 7:34 AM EST documented in this encounter Discharge Instructions * Discharge Instructions* Aurea Cuenca RN - 09/10/2011 12:36 PM EST What to expect after a nerve block Nerve blocks affect many types of nerves. The affected nerves control movement, pain, and normal sensation. This causes feelings such as: ?? Weakness ?? Numbness ?? Tingling ?? Heaviness ?? A feeling that your arm or leg has fallen asleep. A nerve block can last from about 2 to 48 hours, depending on the medications used. Usually the weakness wears off first, then you will feel a numb or tingly sensation. Finally, the pain may come back. This can happen in any order. If you had a shoulder block, you may have other symptoms such as: 1. Mild shortness of breath 2. A hoarse voice 3. Blurry vision 4. Unequal pupils 5. Drooping of your face on the same side as the nerve block. These are common and expected side effects of this type of nerve block. Symptoms usually go away within 12 hours. If these symptoms do not go away, please call the Anesthesiology Department at . If you have severe or prolonged shortness of breath, please go to the nearest emergency department. If you continue to feel the effects of the nerve block for longer than 48 hours, please call the Anesthesiology department at . Pain Medication If needed, your surgeon will give you a prescription for pain medication. Start taking this medication before the nerve block wears off. Nerve blocks sometimes wear off during the night. It is a goodidea to take your pain medicine as prescribed before going to sleep so you won't wake up with pain.The idea is to have pain medicine in your body before the nerve block wears off. To help prevent nausea, eat something before taking the pain medicine. Once a nerve block starts to wear off, it is usually completely gone within 60 minutes. It is important to have pain medicine in your system before the block wears off completely. Helpful tips to protect the part of your body that is numb. After a nerve block, you cannot feel pain, pressure, or extremes in temperature. Because your arm or leg is numb, it is more at risk for injury. For example, if working near a hot oven, you could burn your arm or leg without knowing it. Here are some hints to help protect your limb while it is numb ?? While you are awake, try to change positions of your arm or leg often. This will help you avoid putting too much pressure on the limb for long periods of time. ?? While sleeping, pad the blocked limb with pillows to avoid placing too much pressure on the limb. ?? If you have a cast or a tight dressing, check the color of your fingers or toes every couple of hours. Call your doctor if any look discolored. ?? If you had a shoulder, arm, or hand nerve block, you may go home with a sling. The sling will help to keep your arm in the ideal position. Wear the sling at all times until feeling returns. If youdo not have a sling, watch the position of the blocked arm to make sure it is in a safe location. ?? Ask your family or support people to help with the above hints. QUESTIONS? Please call the Anesthesiology department at with concerns or after hours and ask for the anesthesiologist regional psychiatric director. Narcotic pain medications can cause constipation, please ask the surgeons office what they recommend for prevention of this. Some non-pharmaceutical means of constipation prevention include increasing intake of fluids, eating more fruits and vegetables as well as fruit juices. General Anesthesia Discharge Instructions Go home and [...] foul drainage occurs, please contact your M.D. Narcotic pain medications can cause constipation, please ask the surgeons office what they recommend for prevention of this. Some non-pharmaceutical means of constipation prevention include increasing intake of fluids, eating more fruits and vegetables as well as fruit juices. [facility] [place] 8:00-5:30 [facility] 29/03 ask for your doctor regional psychiatric director * Patient Instructions* Delano Calle - 09/10/2011 12:09 PM EST Same Day Surgery Post Operative Orders and Discharge Instructions For Subacromial Decompression. [place] [id number] 05/18/2011 Diagnosis: Status Post Left Shoulder Arthroscopy Subacromial Decompression with Open Distal Clavicle Resection Activity: Non-weight bearing surgical shoulder and upper extremity. As tolerated in shoulder immobilizer. May perform passive elbow ROM twice daily with elbow always in front of the body. Shoulder immobilizer at all times otherwise. Please schedule your first physical therapy appointment after yourfirst post-operative office visit. Instructions: - Please keep affected extremity elevated and ice as needed on a PRN basis. - You should not drive while on narcotic medication or while using your shoulder immobilizer. - All dressings should remain in place for 72 hours. - The abduction sling should be kept in place until the patient's next follow up appointment with the orthopaedic surgery department unless otherwise instructed by physical therapy. - Keep incision clean and dry until follow-up. Sponge bathe only until follow-up. - Dressings may be removed after 72 hours and replaced with dry sterile gauze if wounds are still draining, but steri-strips should be kept in place until follow-up. Diet: Regular diet but increase your intake of fluids and fiber while you are on narcotic pain medsto prevent constipation. You should also increase your intake of high protein fluids and foods to promote wound healing. Medications: 1. The pain medication you are on can cause constipation so increase your intake of fluids and fiber while you are on them. You can try an [id number] medication, miralax if needed. Please contact us if you develop fevers, chills, night sweats, nausea, vomiting, wound discharge, numbness, tingling, increased pain, pain with passive or active extension of fingers in the affected extremity, or other questions or concerns. Follow up with Mitch Albert, PA, in the Orthopaedic Department 3A, on 09/24/2011 at 11:00AM in [id number] as previously scheduled. Please bring your surgical photos to your first post-op appointment. documented in this encounter Medications at Time of Discharge Medication Sig Dispensed Refills Start Date End Date losartan (COZAAR) 50 mg tabletIndications:hyp ertension Take 100 mg by mouth daily. Indications: Hypertension citalopram (CELEXA) 20 mg tablet Take 20 mg by mouth nightly. OXYcodone (OXYCONTIN) 10 mg CR tablet Take 1 tablet by mouth 2 times daily for 4 days. 8 tablet 0 09/10/2011 09/14/2011 pantoprazole (PROTONIX) 40 mg tablet Take 40 mg by mouth daily. 02/12/2012 acetaminophen (TYLENOL) 325 mg tablet Take 2 tablets by mouth every 6 hours as needed for Pain. 30 tablet 1 09/10/2011 12/15/2011 ondansetron (ZOFRAN) 4 mg tablet Take 1 tablet by mouth every 8 hours as needed for Nausea. 20 tablet 1 09/10/2011 12/15/2011 ibuprofen (ADVIL;MOTRIN) 600 mg tablet Take 600 mg by mouth every 6 hours as needed. 02/12/2012 amlodipine (NORVASC) 10 mg tablet Take 10 mg by mouth daily. 12/29/2012 multivitamin (THERAGRAN) tablet Take 1 tablet by mouth daily. 12/15/2011 documented as of this encounter Miscellaneous Notes * Miscellaneous - Provider, Scanning - 09/11/2011 1:53 PM EST * Miscellaneous - Provider, Scanning - 09/10/2011 9:22 PM EST * Op Note - Sofie Pritchard MD - 09/10/2011 12:07 PM EST OPERATIVE NOTE DATE OF PROCEDURE: 09/10/2011 DATE OF DICTATION: 09/10/2011 SURGEON ORTHOPEDIC: SOFIE PRITCHARD M.D. STERILIZER MACHINE OPERATOR: DELANO CALLE M.D. PREOPERATIVE DIAGNOSES: 1. Left symptomatic AC arthropathy. 2. Left partial-thickness rotator cuff tear. 3. Left long head of the biceps tendonitis. POSTOPERATIVE DIAGNOSES: 1. Symptomatic left AC arthropathy. 2. Severe impingement, bursitis, and bursal side partial-thickness tear less than 10% thickness. 3. Long head of the biceps inflammation without significant evidence of attrition or tendinopathy. PROCEDURES PERFORMED: 1. Left shoulder open distal clavicle resection (1 cm) (53056). 2. Left shoulder arthroscopy with extensive debridement (38284). 3. Left arthroscopic bursectomy and acromioplasty (23999). 1. 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 He is approximately four months status post a right shoulder distal clavicle resection, decompression, and debridement. He has had excellent results. On his left side, his clinical examination is consistent with symptomatic AC arthropathy as well as severe impingement and bursitis with a possible full-thickness rotator cuff tear. In addition, he has symptomatic biceps. In light of the fact that he has not improved to his satisfaction with less invasive treatment, he was taken to the operating room at this time for the above-mentioned procedure. 2. OPERATIVE FINDINGS/OPERATIVE PROCEDURE: The patient underwent a left shoulder supraclavicular block in the induction area. He was then transferred to the operating room where a time-out was performed as per [facility] protocol. He was then placed under general endotracheal anesthesia in a modified beach chair position with his head and neck protected through appositioning. His left shoulder and arm were prepped and draped in the usual sterile fashion. He was given 2 g of IV Kefzol prophylaxis. At that point, a sabre approach was made to the distal clavicle. It was carried down through skin and subcutaneous tissue. Hemostasis was obtained where necessary using cautery. The deltotrapezial fascia was identified and divided longitudinally across the AC joint on to the acromion. This was then dissected full thickness to expose the distal 1 cm of clavicle. With retractors appropriately placed, the distal 1 cm clavicle was removed with an oscillating saw. The sharper edges were smoothed with a rasp. The shoulder was then copiously irrigated with bacitracin solution. The deltotrapezial fascia was approximated with [id number] sutures of #2 Ethibond. Subcutaneous tissue was approximated using simple irrupted sutures of 4-0 Vicryl and the skin was closed with running subcuticular suture of Monocryl. Attention was then turned to the shoulder arthroscopy where the 30-degree beveled arthroscope was introduced via the posterior portal without difficulty. Anterior portal was established under direct vision. We had excellent visualization. There was some fraying of the free edge of the glenoid labrum. There was also some articular side fraying at the anterior portion of the supraspinatus, but there was no exposed footprint. This represented some lamination at the musculotendinous junction. The biceps was well visualized, was intact, and showed some inflammatory change without tendinopathy. There was no significant arthritic change at the joint. After satisfactory intraarticular debridement, instruments were placed in the subacromial position. He had very thick inflamed bursa. A bursectomy was performed with an ArthroCare wand and a shaver. We then had excellent visualization of the bursal side of the rotator cuff. This again showed some fraying, but less than 10% thickness. This was debrided back to a stable base with a shaver. At that point, the arthroscope was placed in the lateral subacromial position, an arthroscopic acromioplasty was performed with a 4.0 oval bur in a cutting block technique. Of note is the fact that there was a very large medial acromial osteophyte as well that was removed. Following satisfactory decompression, the shoulder was copiously irrigated via the inflow and outflow portals. The instruments were removed. Portals were closed using subcuticular sutures of 3-0 Monocryl and Steri-Strips. A bulky shoulder dressing was placed, ABD in the axilla, and a shoulder immobilizer. He tolerated the procedure well and was taken to the recovery room in satisfactory condition. * OR Attestation - Sofie Pritchard MD - 09/10/2011 12:06 PM EST I was the attending physician supervising the resident in the above care and REMAINED THROUGHOUT PROCEDURE. documented in this encounter Plan of Treatment Not on file documented as of this encounter Procedures Procedure Name Priority Date/Time Associated Diagnosis Comments ARTHROSCOPY SHOULDER,SUBACROMIAL DECOMPRESSION Routine 09/11/2011 4:55 PM EST ARTHROSCOPY SHOULDER DEBRIDEMENT EXTENSIVE Routine 09/11/2011 4:55 PM EST MODIFIER [employer] CHAIR SCHLEIN 09/10/2011 9:16 AM EST rc tear ARTHROSCOPY SHOULDER, SUBACROMIAL DECOMPRESSION (WRVU 3) 09/10/2011 9:16 AM EST rc tear ARTHROSCOPY SHOULDER DEBRIDEMENT EXTENSIVE (WRVU 7.98) 09/10/2011 9:16 AM EST rc tear CLAVICULECTOMY, PARTIAL (WRVU 7.39) 09/10/2011 9:16 AM EST rc tear documented in this encounter Visit Diagnoses Not on filedocumented in this encounter Administered Medications Inactive Administered Medications - up to 3 most recent administrations Medication Order MAR Action Action Date Dose Rate Site bacitracin injection ONCE PRN, Starting on Roz 09/10/11 at 1019, Until Roz 09/10/11 at 1522, Intra-Operative (Intra-Procedure), Routine Given 09/10/2011 10:19 AM EST 50,000 Units 19- Surgical Site epiNEPHrine (ADRENALIN) injection ONCE PRN, Starting on Roz 09/10/11 at 1020, Until Roz 09/10/11 at 1522, Intra-Operative (Intra-Procedure), Routine Given 09/10/2011 10:20 AM EST 1 mg 19- Surgical Site lactated ringers infusion 1,000 mL 1,000 mL, at 100 mL/hr, Intravenous, CONTINUOUS, Starting on Wed09/09/11 at 1345, Until Roz 09/10/11 at 1522 New Bag 09/10/2011 7:57 AM EST 1,000 mLs 100 mL/hr midazolam (VERSED) injection 0.5-2 mg 0.5-2 mg, Intravenous, EVERY 3 MIN PRN, Starting on Wed09/09/11 at 1444, Until Roz 09/10/11 at 1522, Anxiety, for procedural sedation sdp block area, Please d/c when leaving block area, Routine New Bag 09/10/2011 8:40 AM EST 2 mg mL/hr sodium chloride injection ONCE PRN, Starting on Roz 09/10/11 at 1020, Until Roz 09/10/11 at 1522, Line Care, Intra-Operative (Intra-Procedure), Routine Given 09/10/2011 10:20 AM EST 10 mLs 19- Surgical Site triamcinolone acetonide (KENALOG) injection ONCE PRN, Starting on Roz 09/10/11 at 1126, Until Roz 09/10/11 at 1522, Intra-Operative (Intra-Procedure), Routine Given 09/10/2011 11:26 AM EST 30 mg 19- Surgical Site documented in this encounter Active and Recently Administered Medications Times are shown in EST. Scheduled Medication Order 09/08/2011 09/09/2011 09/10/2011 OXYcodone (oxyCONTIN) CR tablet 10 mg 10 mg, Oral, EVERY 12 HOURS SCHEDULED (2 times per day), First dose on Roz 09/10/11 at 1230, Until Discontinued, PACU Recovery 1230 (Due) Continuous Medication Order 09/08/2011 09/09/2011 09/10/2011 lactated ringers infusion 1,000 mL (CANCELED) 1,000 mL, at 100 mL/hr, Intravenous, CONTINUOUS, Starting on Wed09/09/11 at 1345, Until Roz 09/10/11 at 1522 1345 (Due) 0757 (New Bag - Provider: Aurea Cuenca RN) PRN Medication Order 09/08/2011 09/09/2011 09/10/2011 acetaminophen (TYLENOL) tablet 650 mg 650 mg, Oral, EVERY 6 HOURS PRN, Starting on Roz 09/10/11 at 1210, Until Roz 12 at 1522, Pain, Maximum dose of acetaminophen is 4000 mg from all sources in 24 hours., PACU Recovery, Routine bacitracin injection (CANCELED) ONCE PRN, Starting on Roz 12 at 1019, Until Roz 12 at 1522, Intra-Operative (Intra-Procedure), Routine 1019 (Given - Provid er: Sofie Pritchard MD) epiNEPHrine (ADRENALIN) injection (CANCELED) ONCE PRN, Starting on Roz 09/10/11 at 1020, Until Roz 12 at 1522, Intra-Operative (Intra-Procedure), Routine 1020 (Given - Provid er: Sofie Pritchard MD - Comment: 1ml added to each 3L bag NS for irrigation.) midazolam (VERSED) injection 0.5-2 mg (CANCELED) 0.5-2 mg, Intravenous, EVERY 3 MIN PRN, Starting on Wed09/09/11 at 1444, Until Roz 09/10/11 at 1522, Anxiety, for procedural sedation sdp block area, Please d/c when leaving block area, Routine 0840 (New Bag - Prov ider: Aurea Cuenca RN) ondansetron (ZOFRAN) tablet 4 mg 4 mg, Oral, EVERY 8 HOURS PRN, Starting on Roz 09/10/11 at 1211, Until Roz 09/10/11 at 1522, Nausea, PACU Recovery, Routine OXYcodone (ROXICODONE) immediate release tablet 5-15 mg 5-15 mg, Oral, EVERY 4 HOURS PRN, Starting on Roz 09/10/11 at 1210, Until Roz 09/10/11 at 1522, Pain, PACU Recovery, Routine sodium chloride injection (CANCELED) ONCE PRN, Starting on Roz 09/10/11 at 1020, Until Roz 09/10/11 at 1522, Line Care, Intra-Operative (Intra-Procedure), Routine 1020 (Given - Provid er: Sofie Pritchard MD - Comment: used for mixing bacitracin for irrigation.) triamcinolone acetonide (KENALOG) injection (CANCELED) ONCE PRN, Starting on Roz 09/10/11 at 1126, Until Roz 09/10/11 at 1522, Intra-Operative (Intra-Procedure), Routine 1126 (Given - Provid er: Sofie Pritchard MD) documented in this encounter Care Teams Developer Advocate Relationship Specialty Start Date End Date Marquez Freed MD [address] [place] [id number] PCP - General 10/07/10 documented as of this encounter
--- OUTSIDE RECORDS SUMMARY | 2024-04-28 18:48 | XMS_ITS | Encounter Summary ---
Author Organization [facility] [place] [address] Care Team Providers Care Riveting Machine Operator Automatic Name Role Phone Marquez Freed MD Primary Care Provider [phone] Reason for Referral * Occupational Therapy (Routine) - Complete - Patient Will Schedule External Appt Specialty Diagnoses / Procedures Referred By Faustino connors Referred To Contact Occupational Therapy Diagnoses Bilateral carpal tunnel syndrome Hand pain Binh Lee PA [facility] [place] [address] Referral ID Status Reason Start Date Expiration Date Visits Requested Visits Authorized [id number] Complete - Patient Will Schedule External Appt Evaluate and Treat 04/13/2013 10/10/2013 1 1 Reason for Visit * Reason Comments Bilateral Hand Pain Bilateral Wrist Pain Encounter Details Date Type Department Care Team (Late st Contact Info) Description 04/13/2013 7:30 AM EDT [place] [address] Sofie Pritchard MD [facility] [place] [address] Bilateral carpal tunnel syndrome (Primary Dx); Hand [...] Sign Reading Time Taken Comments Blood Pressure 129/76 04/13/2013 8:12 AM EDT Pulse 76 04/13/2013 8:12 AM EDT Temperature - - Respiratory Rate - - Oxygen Saturation - - Inhaled Oxygen Concentration - - Weight 93.4 kg (206 lb) 04/13/2013 8:12 AM EDT Height 170.2 cm (5' 7) 04/13/2013 8:12 AM EDT Body Mass Index 32.26 04/13/2013 8:12 AM EDT documented in this encounter Progress Notes * Binh Lee PA - 04/13/2013 8:48 AM EDT Date of Evaluation: 04/13/2013 Referring Provider: Sofie Pritchard Date of Injury: Chronic Staff: Dr. Pritchard History of Present Illness: Dale [place] is a very pleasant 42 y.o. male with a chief complaint of repeat evaluation of his bilateral wrist pain. Patient states he suffered from bilateral carpal tunnel syndrome both of which were surgically operated on by Dr. Pritchard right in June of 2012 left and March of 2012. Patient was last seen by Dr. Pritchard and February 09, 2013 where an EMG was performed which showed entrapment of the median nerve bilaterally left greater than right. Patient had MRI done of bilateral hands which the right was unable to be performed secondary to metallic foreign body at the base of the first metatarsal. Left hand MRI showed mild osteoarthritic changes and tendinitis. Patient states he is still ex periencing significant weakness in bilateral hands. He also reports pain with numbness/tingling in the morning. He locates the pain along the median nerve distribution bilaterally. Patient has been going to occupational therapy twice a week for the past 6 weeks and states that he is seeing minimal gains. He admits to some left elbow tenderness along the lateral epicondyle. He admits to using night wrist splints in bilateral upper extremity. Patient states that he doesn't do much around the house and has been drinking a significant amount. He states that he is unable to take nonsteroidal anti-inflammatory medications because of his fatty liver which he developed secondary to excessive drinking. Patient states he's been drinking 60 beers per week. Past Medical History: Past Medical History Diagnosis Date ??? Fatty liver ??? Hypertension Surgical History: Past Surgical History Procedure Date ??? Shldr arthroscop, exten debride 03/24/2011 ARTHROSCOPY SHOULDER DEBRIDEMENT EXTENSIVE performed by SOFIE PRITCHARD at [facility] ??? Shldr arthroscop, part acromioplas 03/24/2011 ARTHROSCOPY SHOULDER, SUBACROMIAL DECOMPRESSION performed by SOFIE PRITCHARD at [facility] ??? Partial removal, clavicle 03/24/2011 CLAVICULECTOMY, PARTIAL performed by SOFIE PRITCHARD at [facility] ??? Partial removal, clavicle 09/10/2011 CLAVICULECTOMY, PARTIAL performed by SOFIE PRITCHARD at [facility] ??? Shldr arthroscop, exten debride 09/10/2011 ARTHROSCOPY SHOULDER DEBRIDEMENT EXTENSIVE performed by SOFIE PRITCHARD at [facility] ??? Shldr arthroscop, part acromioplas 09/10/2011 ARTHROSCOPY SHOULDER, SUBACROMIAL DECOMPRESSION performed by SOFIE PRITCHARD at [facility] ??? Revise median n/carpal tunnel surg 03/16/2012 MEDIAN NERVE DECOMPRESSION (CARPAL TUNNEL RELEASE) performed by SOFIE PRITCHARD at [facility] ??? Revise median n/carpal tunnel surg 06/08/2012 MEDIAN NERVE DECOMPRESSION (CARPAL TUNNEL RELEASE) performed by SOFIE PRITCHARD at [facility] ??? Unlisted mr procedure 04/06/2013 MRI WITH ANESTHESIA performed by Breezy Torres at [facility] Social History: Tobacco: Denies Alcohol: 60 + beer per week Occupation: Unemployed Sulfa (sulfonamide antibiotics) Current Outpatient Prescriptions on File Prior to Visit Medication Sig Dispense Refill ??? verapamil (COVERA HS) 240 mg 24 hr tablet Take 240 mg by mouth nightly. ??? pantoprazole (PROTONIX) 40 mg tablet Take 1 tablet by mouth daily. 90 tablet 0 ??? loratadine (CLARITIN) 10 mg tablet Take 10 mg by mouth daily as needed. ??? losartan (COZAAR) 50 mg tablet Take 100 mg by mouth daily. Indications: Hypertension ??? citalopram (CELEXA) 20 mg tablet Take 20 mg by mouth nightly. Current Facility-Administered Medications on File Prior to Visit Medication Dose Route Frequency Provider Last Rate Last Dose ??? gadopentetate dimeglumine (MAGNEVIST) injection 19 mL 0.2 mL/kg Intravenous Once PRN Meredith Katz MD Patient Active Problem List Diagnoses Code ??? Bilateral carpal tunnel syndrome 354.0 ??? Follow-up examination following surgery, right shoulder arhtroscopy V67.00 ??? Hand pain 729.5 ??? HTN (hypertension) 401.9 Review of Systems: Denies fever, chills, MIXON, LOC, SOB, CP, NVD, abd pain,swelling in the joints, h/o RA. No recent hospitalizations Physical Examination Mr. Miroslava meade 42 y.o. year old is alert and oriented. He appears in no acute discomfort and is resting comfortably in a chair in the exam room. Bilateral Upper Extremity: There is no thenar and eminence atrophy noted in bilateral upper teres. Skin is intact without any erythema or ecchymosis. No evidence of, seen. Patient has good pain-free range of motion at both theelbow and shoulder joints. Patient has some focal tenderness noted along the left lateral epicondyle extending along the extensor carpi radialis. There is moderate midline wrist tenderness along the ulnar aspect of the bilateral upper extremities. Patient has full range of motion with flexion, extension, ulnar and and radial deviation in bilateral wrists. Patient has decreased 4/5 diamond sizer and sorter strength bilaterally. Decreased 3+/5 strength with abduction of the digits. Wrist pain reported with resistiveflexion of the digits. No evidence of motor neuron dysfunction along the level of C5 through C8. Negative Tinel. Positive Phalen's in the left wrist. Neurological/Vascular: Sensation intact along the supraclavicular, axillary, muscular cutaneous, antebrachial, ulnar, radial, and median nerves root distribution Radial and ulnar pulses 2+4 in bilateral upper extremities Imaging: I reviewed the patient's MRI of his right wrist and hand which show: 1. The study is limited to the left Hand due to the presence of a metallic foreign body in the right hand and the safety concerns of scanning soft tissue metal in a patient while sedated. 2. A solitary bony defect is present. Its location and appearance is most consistent with a subchondral cyst at the index metacarpal head. I do not see definite erosive disease. 3. Other than a minimal degree of inflammation surrounding the extensor carpi ulnaris tendon no inflammatory changes are identified. Patient's EMG report taken on February 09, 2013 shows entrapment of bilateral median nerves. Left greater than right. Assessment: 42-year-old male one year status post carpal tunnel release in bilateral upper extremities now with continued neurological manifestations and weakness. The patient was seen and the plan was formulated in conjunction with Dr. Pritchard. Plan: Mr. [place] and I discussed his radiologic findings and physical exam findings. Because the majority of the patient's complaints is weakness in her specifically pain recommended the patient continues with occupational therapy twice weekly and continues to do exercises at home. Patient should continue wearing night wrist splints bilaterally. We will refer the patient to occupational therapy for a functional capacity evaluation. Patient advised to decrease the amount of which he drinks. Patient should not take nonsteroidal anti-inflammatory medication secondary to his elevated liver enzymes. Patient will followup in clinic after his occupational therapy evaluation. At this time patient cannot return to work. The patient understands to contact us if they have any other questions or concerns. JOSSELINE FLEMING 04/13/2013 documented in this encounter Plan of Treatment Scheduled Referrals Name Type Priority Associated Diagnoses Order Schedule Referral to Occupational Therapy Outpatient Referral Routine Bilateral carpal tunnel syndrome Hand pain Ordered: 04/13/2013 documented as of this encounter Visit Diagnoses Diagnosis Bilateral carpal tunnel syndrome- Primary Carpal tunnel syndrome Hand pain Pain in limb documented in this encounter Care Teams Riveting Machine Operator Automatic Relationship Specialty Start Date End Date Marquez Freed MD [address] [place] [id number] PCP - General 10/07/10 documented as of this encounter
--- OUTSIDE RECORDS SUMMARY | 2024-04-28 18:48 | XMS_ITS | Encounter Summary ---
Author Organization [facility] [place] [address] Care Team Providers Care Japanese Tutor Name Role Phone Marquez Freed MD Primary Care Provider [phone] Encounter Details Date Type Department Care Team (Late st Contact Info) Description 03/16/2012 8:15 AM EDT - 03/16/2012 9:30 AM EDT Surgery [place] [address] Otis Pritchard MD [facility] DR [place] [address] MEDIAN NERVE DECOMPRESSION (CARPAL TUNNEL RELEASE) (WRVU 4.97) Social History Tobacco Use Types Packs/Day Years [...] and vegetables as well as fruit juices. [facility] 29/03 ask for your doctor neon electrician * Patient Instructions* Andrez Dunlap - 03/16/2012 [...] on them. You can also take an xvbk-all-cvhytic stool softener, colace or senna, to facilitate [...] incision or dressings wet. Call your doctor (#[phone]) if: ?? You have a fever > 101.5 or experience chills Increased discharge from the incision Any redness or swelling around the incision Increased pain or change in the pain that is not controlled by your pain medications WHERE TO CALL WITH QUESTIONS [facility] Ask for the resident neon electrician for your provider [facility]patient [facility] (7:00am [...] PROCEDURES PERFORMED: 1. Left carpal tunnel release (79420). 2. Left flexor tenosynovectomy. 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 I have followed him with bilateral upper [...] After a time-out was performed as per [facility] protocol, his left upper extremity was prepped [...] cts documented in this encounter Visit Diagnoses Not on filedocumented in this encounter Administered Medications Inactive Administered Medications - up to 3 most recent administrations Medication Order MAR Action Action Date Dose Rate Site BUpivacaine-epiNEPHr ine 0.25 %-1:200,000 injection ONCE PRN, Starting on Wed03/16/12 at 0851, Until Wed03/16/12 at 1223, Intra-Operative (Intra-Procedure), Routine Given 03/16/2012 8:51 AM EDT 16 mg 19- Surgical Site ceFAZolin (ANCEF) 2,000 mg in sodium [...] Procedure), Indication for (Active or Suspected): Prophylaxis 714 (Given by Other - Provider: Rasheeda Johnston RN - Comment: mixing pan tender at signout) PRN Medication Order 03/14/2012 03/15/2012 03/16/2012 BUpivacaine-epiNEPHrine 0.25 %-1:200,000 injection (CANCELED) ONCE PRN, Starting on Wed03/16/12 at 0851, Until Wed03/16/12 at 1223, Intra-Operative (Intra-Procedure), Routine 0851 (Given - Provid er: Otis Pritchard MD - Comment: mixed with 10Ml lidocaine total of 16ML used) documented in this encounter Care Teams Japanese Tutor Relationship Specialty Start Date End Date Marquez Freed MD [address] [place] [id number] PCP - General 10/07/10 documented as of this encounter
--- OUTSIDE RECORDS SUMMARY | 2024-04-28 18:48 | XMS_ITS | Encounter Summary ---
Author Organization [facility] Address [facility] [place] [address] Care Team Providers Care Tray Drier Name Role Phone Marquez Freed MD Primary Care Provider [phone] Encounter Details Date Type Department Care Team (Latest Contact Info) Description 10/19/2017 8:51 AM EST - 10/19/2017 11:59 PM [facility] Hospital Encounter XRay at [address] [place] [address] Otis Pritchard MD [facility] [place] [address] Bilateral shoulder pain, unspecified chronicity Discharge Disposition: Home Social History Tobacco Use [...] Name Priority Date/Time Associated Diagnosis Comments XR SHOULDER BILAT Routine 10/19/2017 9:0 6 AM EST Bilateral shoulder pain, unspecified chronicity documented in this encounter Results * XR Shoulder Bilat [...] Diagnoses Diagnosis Bilateral shoulder pain, unspecified chronicity documented in this encounter Care Teams Tray Drier Relationship Specialty Start Date End Date Marquez Freed MD [address] [place] [id number] PCP - General 10/07/10 documented as of this encounter
--- OUTSIDE RECORDS SUMMARY | 2024-04-28 18:48 | XMS_ITS | Encounter Summary ---
Author Organization [facility] Address [facility] [place] [address] Care Team Providers Care Model Maker Name Role Phone Marquez Freed MD Primary Care Provider [phone] Reason for Visit * Reason Comments Follow Up Surgery [facility], dos 03/16/12 Encounter Details Date Type Department Care Team (Late st Contact Info) Description 04/15/2012 9:20 AM EDT Follow-Up [place] [address] Mitch Albert PA [facility] [place] [address] Bilateral carpal tunnel syndrome (Primary Dx); Follow-up examination following surgery, right shoulder arhtroscopy [...] on file documented as of this encounter Progress Notes * Mitch Albert PA - 04/15/2012 9:37 AM EDT Dale is here for followup of his left carpal tunnel decompression done by Dr. Pritchard. He is doing well. He denies fever, chills, nausea, vomiting, numbness, or tingling. He does have some areas around his incision that are bothering him and that the dried skin peeling back is easily debrided. He is otherwise sensate. He tells me that his symptoms are quite improved. He would like to schedule a right carpal tunnel decompression with Dr. Pritchard. His EMGs are in eD-H and consistent with right carpal tunnel syndrome. I explained that we would be more than happy to schedule that. Booking has been submitted. He will return for an evaluation with Dr. Pritchard to include evaluation and final decision-making consent. Otherwise, his questions today were solicited and answered. He is doing quite well with his left carpal tunnel release and we will allow him to be discharged to do therapy for that. His questions are otherwise solicited and answered. He understands and agrees with our plan. documented in this encounter Plan of Treatment Not on file documented as of this encounter Procedures Procedure Name Priority Date/Time Associated Diagnosis Comments MEDIAN NERVE DECOMPRESSION (CARPAL TUNNEL RELEASE) Routine 04/15/2012 9:34 AM EDT documented in this encounter Visit Diagnoses Diagnosis Bilateral carpal tunnel syndrome- Primary Carpal tunnel syndrome Follow-up examination following surgery, right shoulder arhtroscopy Follow-up examination, following unspecified surgery documented in this encounter Care Teams Model Maker Relationship Specialty Start Date End Date Marquez Freed MD [address] [place] [phone] PCP - General 10/07/10 documented as of this encounter
--- OUTSIDE RECORDS SUMMARY | 2024-04-28 18:48 | XMS_ITS | Encounter Summary ---
Author Organization [facility] Address [facility] [place] [address] Care Team Providers Care Fur Finisher Seamstress Name Role Phone Marquez Freed MD Primary Care Provider [phone] Encounter Details Date Type Department Care Team (Latest Contact Info) Description 04/06/2013 10:50 AM EDT - 04/06/2013 11:59 PM EDT Hospital Encounter XRay at [address] [place] [address] CLINIC, Odalis Chino , [facility] [place] [address] Hand pain Discharge Disposition: Home Social History [...] by mouth nightly. losartan (COZAAR) 50 mg tabletIndications:hyp ertension Take 100 mg by mouth daily. Indications: Hypertension citalopram (CELEXA) 20 mg tablet Take 20 mg by mouth nightly. pantoprazole (PROTONIX) 40 mg tabletIndications:Marissa n,GI disease Take 1 tablet by mouth daily. 90 tablet 0 02/12/2012 10/19/2017 loratadine (CLARITIN) 10 mg tablet Take 10 mg by mouth daily as needed. 10/19/2017 documented as of this encounter Plan of Treatment Not on file documented as of this encounter Procedures Procedure Name Priority Date/Time Associated Diagnosis Comments XR PRE MRI ORBITS Routine 04/06/2013 10: 54 AM EDT Pain in limb documented in this encounter Results * XR pre MRI eye foreign body (04/06/2013 10:54 AM EDT) Anatomical Region Laterality Modality Head N/A Radiographic Rufina ging 04/06/2013 10:5 4 AM EDT Narrative 04/06/2013 11:34 AM EDT Examination EYE F.B. 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 ??The right maxillary sinus is partially opacified. ??No bone destruction. Impression ? 1. No radiodense foreign metallic bodies overlying the orbits. ? 2. Mucoperiosteal thickening of the right maxillary sinus. Procedure Note Evelyn Marin MD - 04/06/2013 Examination EYE F.B. 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 The right maxillary sinus is partially opacified. No bone destruction. Impression 1. No radiodense foreign metallic bodies overlying the orbits. 2. Mucoperiosteal thickening of the right maxillary sinus. Odalis Stewart DO IMG DX ORDERABLE S documented in this encounter Visit Diagnoses Diagnosis Hand pain Pain in limb documented in this encounter Care Teams Fur Finisher Seamstress Relationship Specialty Start Date End Date Marquez Freed MD [address] [place] [id number] PCP - General 10/07/10 documented as of this encounter
--- OUTSIDE RECORDS SUMMARY | 2024-04-28 18:48 | XMS_ITS | Encounter Summary ---
Author Organization [facility] Address [place] [address] Care Team Providers Care Satellite Technician Name Role Phone Marquez Freed MD Primary Care Provider [phone] Encounter Details Date Type Department Care Team (Late st Contact Info) Description 04/04/2012 Telephone [place] [phone] Allison Koenig, RN Social History Tobacco Use Types Packs/Day Years Used Date Smoking Tobacco: Never Alcohol Use Standard Drinks/Week Comments Yes 63 (1 standard drink = 0.6 oz pu re alcohol) Sex and Gender Information Value Date Recorded Sex Assigned at Not on file Gender Identity Not on file Sexual Orientation Not on file documented as of this encounter Miscellaneous Notes * Telephone Encounter - Allison Koenig RN - 04/04/2012 10:22 AM EDT Pt is s/p on 03/16/[address] Pritchard PROCEDURES PERFORMED: 1. Left carpal tunnel release (41242). 2. Left flexor tenosynovectomy. Seen 03/28/2012 in follow up progressing well,sutures removes,steri strip applied. He indicates this past Wednesday he noted his incision site split,no activity surrounding event. He denies fever,chills or exudate and any drainage from this. He placed additional steri strips on. He will continue to monitor this and knows we are happy to evaluate if need be. It was also suggested that when he covers the steri strips he should use non adhesive covering along with gauze wrap mary ann tape to the gauze and thus avoiding adhesive on skin. He will do this and update us as need be. documented in this encounter Plan of Treatment Not on file documented as of this encounter Visit Diagnoses Not on filedocumented in this encounter Care Teams Satellite Technician Relationship Specialty Start Date End Date Marquez Freed MD [address] [place] [id number] PCP - General 10/07/10 documented as of this encounter
--- OUTSIDE RECORDS SUMMARY | 2024-04-28 18:48 | XMS_ITS | Encounter Summary ---
Author Organization [facility] [address] Care Team Providers Care Audit Clerk Name Role Phone Marquez Freed MD Primary Care Provider [phone] Encounter Details Date Type Department Care Team (Latest Contact Info) Description 06/08/2012 7:04 AM EDT - 06/08/2012 9:45 AM EDT Hospital Encounter Outpatient [place] [address] Sofie Pritchard MD [facility] [place] [address] Discharge Disposition: Home Social History Tobacco Use [...] Sign Reading Time Taken Comments Blood Pressure 117/73 06/08/2012 9:18 AM EDT Pulse 58 06/08/2012 9:18 AM EDT Temperature 36.6 ??C (97.9 ??F) 06/08/2012 9:18 AM ED T Respiratory Rate 20 06/08/2012 9:18 AM EDT Oxygen Saturation 95% 06/08/2012 9:18 AM EDT Inhaled Oxygen Concentration - - Weight 93 kg (205 lb) 06/08/2012 7:28 AM EDT Height 170.2 cm (5' 7) 06/08/2012 7:28 AM EDT Body Mass Index 32.11 06/08/2012 7:28 AM EDT documented in this encounter Discharge Instructions * Discharge Instructions* Radha Navas RN - 06/08/2012 9:26 AM EDT Moderate Sedation You may have received medication before and/or during your procedure, which affects judgement and reaction time. Do not drive, operate machinery, drink alcoholic beverages, or make important decisions for 24 hours. Be careful on stairs, as you may be unsteady on your feet. You may eat a regular diet as tolerated. Do not smoke if you are alone. IV site -- slight redness, or tenderness is normal, you can use a warm compress. If tenderness and redness increases or foul drainage occurs, please contact your M. D. Narcotic pain medications can cause constipation, please ask the surgeons office what they recommend for prevention of this. Some non-pharmaceutical means of constipation prevention include increasing intake of fluids, eating more fruits and vegetables as well as fruit juices. Questions or problems after 5pm or on a weekend: Call the [facility] assistant press operator offset and ask for the doctor wash crew person covering for Dr Pritchard. * Patient Instructions* Aubrey Galloway MD - 06/08/2012 9:21 AM EDT Orthopaedic Surgery Same Day Discharge Instructions S/P right wrist carpal tunnel release Activity: Do not bear weight (no pushing, pulling or lifting) on the extremity until your follow-up appointment. Please keep the dressing on until your follow up appointment. Keep the right UE elevated above the level of the heart as much as possible for the next few days to help reduce swelling and pain. Intermittently apply ice to the outside of the dressing for 20 minutes at a time throughout the first few days following surgery. This will help reduce pain and swelling. Dressings: Keep the dressing placed in the operating room in place until you are seen back in follow-up. You can reinforce it as needed. Sling for comfort. Bathing/showering: You should not let your dressings get wet until you are seen in follow-up. If you are going to shower, leave the dressing out of the water, or cover with a sturdy plastic bag tapedsecurely at the top prior to showering to prevent water from seeping in. It may be easier to spongebathe for now. Medications: You will be sent home with oxycodone, a narcotic medication. Administer this medication for pain asneeded. Try to taper use over the next week or two as your post-operative pain improves. In addition, you may give Acetaminophen and/or Ibuprofen. Give this medication around the clock. Please refer to the medication bottles for appropriate dosing. This will help with pain and decrease your need for the narcotic medications. The pain medication you are on can cause constipation, so increase your intake of fluids and fiber while you are taking them. If you need a renewal on your narcotic pain medication, you need to give the Orthopedic clinic enough time to process your request. This can take up to three days, so plan accordingly. Call the Orthopaedic Clinic ([phone] during business hours M-; after-hours or on weekends call [phone] and ask for the Ortho resident on-call ) if you develop: fevers, chills, night sweats, nausea, vomitng, wound discharge, as well as numbness, tingling, increased pain, pain with active or passive extension of fingers/toes in the affected limb, or other questions or concerns. Follow up appointment will be with Dr Pritchard's team in the Orthopaedic Surgery Clinic in 2 weeks. documented in this encounter Medications at Time of Discharge Medication Sig Dispensed Refills Start Date End Date losartan (COZAAR) 50 mg tabletIndications:hyp ertension Take 100 mg by mouth daily. Indications: Hypertension citalopram (CELEXA) 20 mg tablet Take 20 mg by mouth nightly. OXYcodone (ROXICODONE) 5 mg immediate release tablet Take 1-2 tablets by mouth every 4 hours as needed for Pain. 30 tablet 0 06/08/2012 06/23/2012 ibuprofen (ADVIL;MOTRIN) 800 mg tablet Take 800 mg by mouth every 8 hours as needed. 12/29/2012 acetaminophen (ACETAMINOPHEN PAIN RELIEF) 500 mg tablet [...] as of this encounter H&P Notes * Sofie Pritchard MD - 06/08/2012 8:22 AM EDT The patient's history and physical exam have been reviewed and completed. There has been no interval change from that of the pre-operative history and physical exam done within the last 30 days. documented in this encounter Miscellaneous Notes * Miscellaneous - Provider, Scanning - 06/08/2012 10:09 PM EDT * Miscellaneous - Provider, Scanning - 06/08/2012 10:06 PM EDT * Miscellaneous - Provider, Scanning - 06/08/2012 2:05 PM EDT * Brief Op Note - Aubrey Galloway MD - 06/08/2012 9:23 AM EDT Brief Operative Note Patient Name: Dale Colorado : [id number] MR#: [id number] Case Date: 06/08/2012 Surgeon: Surgeon(s) and Role: * SOFIE PRITCHARD MD - Primary * AUBREY GALLOWAY MD - Resident-Surgeon [place] Preoperative diagnosis: right carpal tunnel syndrome Postoperative diagnosis: right carpal tunnel syndrome Procedure(s): MEDIAN NERVE DECOMPRESSION (CARPAL TUNNEL RELEASE) Anesthesia: MAC Findings: extrinsic compression on median nerve with complete release Complications: none Fluids: 400cc Estimated Blood Loss: <5cc Drains: none Disposition: awakened from anesthesia, taken to the recovery room in a stable condition, having suffered no apparent untoward event. Condition: doing well without problems (Please see the Surgical Encounter Summary for any Implant and Specimen details pertinent to this patient.) * Op Note - Sofie Pritchard MD - 06/08/2012 9:18 AM EDT DATE OF PROCEDURE: 06/08/2012 SURGICAL STAFF/ASSISTANTS SOFIE PRITCHARD M.D. AUBREY GALLOWAY M.D. PREOPERATIVE DIAGNOSIS: Right carpal tunnel syndrome. POSTOPERATIVE DIAGNOSIS: Right carpal tunnel syndrome. PROCEDURE: Right carpal tunnel release (38656). 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 I have followed him for several years with numbness in both hands. His clinical examination has been consistent with bilateral carpal tunnel syndrome and this has been confirmed with EMG nerve conduction studies. He is status post left carpal tunnel release, and doing very well. After discussing the risks and necessary rehabilitation, he was taken to the operating room at this time for right carpal tunnel release. OPERATIVE FINDINGS/OPERATIVE PROCEDURE: The patient was taken to the operating room and placed supine on the operating table. A time-out was performed as per [facility] protocol. His right upper extremity was prepped and draped in the usual sterile fashion. He was given 2 g of IV Kefzol prophylaxis. A median nerve block of 1% Xylocaine and 0.25% Marcaine was then placed. The arm was exsanguinated with a sterile Dewey wrap and tourniquet inflated to 250 mmHg. A 2.5-cm incision was then made in the palm centered along the radial aspect of the fourth ray. It was carried down through skin and subcutaneous tissue. Hemostasis was obtained where necessary using cautery. Loupe magnification was used throughout the dissection. The palmar fascia was divided in the direction of its fibers and with the retractors appropriately placed, the ulnar side of the transverse carpal ligament was divided under direct vision beginning distally and proceeding proximally to construct a radially based flap. Again with retractors appropriately placed, the distal portion of the volar forearm fascia was also released <___> and passed my small finger proximal to the volar wrist crease. At that point, an epineurotomy was performed on the ulnar aspect of the median nerve until a good fascicular pattern was identified. An epineurectomy was not performed. At that point, the wound was copiously irrigated with bacitracin solution. The skin was then closed with vertical mattress sutures of 5-0 nylon. Xeroform was placed, bulky hand dressing, and tourniquet released. He was then placed in a well-padded volar splint intrinsic plus position. He tolerated the procedure well and was taken to the recovery room in satisfactory condition. * OR Attestation - Sofie Pritchard MD - 06/08/2012 9:17 AM EDT I was the attending physician supervising the resident in the above care and I was present with theresident for the entire procedure. documented in this encounter Plan of Treatment Not on file documented as of this encounter Procedures Procedure Name Priority Date/Time Associated Diagnosis Comments MEDIAN NERVE DECOMPRESSION (CARPAL TUNNEL RELEASE) (WRVU 4.97) 06/08/2012 8:21 AM EDT right carpal tunnel syndrome documented in this encounter Visit Diagnoses Not on filedocumented in this encounter Administered Medications Inactive Administered Medications - up to 3 most recent administrations Medication Order MAR Action Action Date Dose Rate Site ceFAZolin (ANCEF) 2,000 mg in sodium chloride 0.9% 55 mL 2,000 mg (2 g), Intravenous, ONCE, 1 dose, On Wed06/08/12 at 0745, Administer over 30 Minutes, To be administered upon arrival to the OR within one hour prior to incision., Day of Surgery (Day of Procedure), Indication for (Active or Suspected): Prophylaxis Given by Other 06/08/2012 7:45 AM EDT 2,000 mg 110 mL/hr documented in this encounter Active and Recently Administered Medications Times are shown in EDT. Scheduled Medication Order 06/06/2012 06/07/2012 06/08/2012 ceFAZolin (ANCEF) 2,000 mg in sodium chloride 0.9% 55 mL (COMPLETED) 2,000 mg (2 g), Intravenous, ONCE, 1 dose, On Wed06/08/12 at 0745, Administer over 30 Minutes, To be administered upon arrival to the OR within one hour prior to incision., Day of Surgery (Day of Procedure), Indication for (Active or Suspected): Prophylaxis 0745 (Given by Other - Provider: Claudia Michaels RN) PRN Medication Order 06/06/2012 06/07/2012 06/08/2012 bacitracin injection (CANCELED) ONCE PRN, Starting on Wed06/08/12 at 0904, Until Wed06/08/12 at 1247, Intra-Operative (Intra-Procedure), Routine 903 (Given - Provid er: Sofie Pritchard MD - Comment: irrigation) BUpivacaine-epiNEPHrine 0.25 %-1:200,000 injection (CANCELED) ONCE PRN, Starting on Wed06/08/12 at 0903, Until Wed06/08/12 at 1247, Intra-Operative (Intra-Procedure), Routine 902 (Given - Provid er: Sofie Pritchard MD) documented in this encounter Care Teams Audit Clerk Relationship Specialty Start Date End Date Marquez Freed MD [address] [place] [id number] PCP - General 10/07/10 documented as of this encounter
--- OUTSIDE RECORDS SUMMARY | 2024-04-28 18:48 | XMS_ITS | Encounter Summary ---
Author Organization [facility] Address [facility] [place] [address] Care Team Providers Care Equipment Operator Warehouse Name Role Phone Marquez Freed MD Primary Care Provider [phone] Encounter Details Date Type Department Care Team (Late st Contact Info) Description 03/16/2012 8:33 AM EDT Anesthesia Event [place] [id number] Ben Stanton MD [facility] [place] [address] Jose Alberto Bhandari MD [facility] [place] [address] Anesthesia Record Procedure Summary Procedure Name Responsible Anesthesiologist Anesthesia Start Time Anesthesia Stop Time MEDIAN NERVE DECOMPRESSION (CARPAL TUNNEL RELEASE) (WRVU 4.97) (Left: Hand) Ben Stanton MD 03/16/12 0833 03/16/12 0918 Events Date Time Event Comment 03/16/2012 0757 0833 Start 0918 Stop Meds * Agents No agents on file. * Blood No blood administrations on file. Lines, Drains, and Airways Type Details Placement Removal Incision shoulder; 05/04/22 ( LDA cleanup utility [...] Cullen RN 05/04/22 1715 by Natanael Dhillon documented in this encounter Social History Tobacco [...] OR Notes * Anesthesia Postprocedure Evaluation - Ben Stanton MD - 03/16/2012 3:22 PM EDT Patient: Dale Colorado Procedure(s) Performed: Procedure(s): MEDIAN NERVE DECOMPRESSION (CARPAL TUNNEL RELEASE) Patient location: PACU Post-op pain: Adequate analgesia Post-op nausea: no nausea or vomiting Last Vitals: Filed Vitals: 03/16/12 0923 BP: 120/70 Pulse: 65 Temp: Resp: Post-op cardiovascular and respiratory status: is stable Level of consciousness: awake Complications: no apparent complications Fluid Status: normal * Anesthesia Preprocedure Evaluation - Ben Stanton MD - 03/15/2012 3:18 PM EDT Anesthesia Evaluation Patient summary reviewed and Nursing notes reviewed Airway Mallampati: II TM distance: >3 FB Neck ROM: full Dental - normal exam Pulmonary - negative ROS and normal exam breath sounds clear to auscultation (-) COPD, asthma, shortness of breath and recent URI Cardiovascular - negative ROS and normal exam Exercise tolerance: good (Able to do >= 4 mets) (-) past [place], CAD, CABG/stent and dysrhythmias Rhythm: regular Rate: normal Neuro/Psych - negative ROS (+) neuromuscular disease, GI/Hepatic/Renal (+) GERD (GERD sx assoc. with NSAIDs, no issues at present now off NSAIDs, sx were controlled with PPI) well controlled, (-) hiatal hernia Endo/Other - negative ROS Abdominal (+) obesity, Anesthesia Plan ASA 2 MAC Anesthetic plan and risks discussed with patient. Plan discussed with INDUSTRIAL REGISTERED NURSE. documented in this encounter Miscellaneous Notes * Addendum Note - Valerie Whittington - 03/17/2012 11:18 AM EDT Addendum created 03/17/12 1118 by Valerie Whittington Modules edited:Anesthesia Events, Anesthesia Responsible Staff documented in this encounter Plan of Treatment Not on file documented as of this encounter Visit Diagnoses Not on filedocumented in this encounter Care Teams Equipment Operator Warehouse Relationship Specialty Start Date End Date Marquez Freed MD [address] [place] [id number] PCP - General 10/07/10 documented as of this encounter
--- OUTSIDE RECORDS SUMMARY | 2024-04-28 18:48 | XMS_ITS | Encounter Summary ---
[place] [address] Care Team Providers Care Peoplesoft Financials Consultant Name Role Phone Marquez Freed MD Primary Care Provider [phone] Encounter Details Date Type Department Care Team (Late st Contact Info) Description 04/06/2012 Telephone [place] [phone] Allison Koenig RN Social History Tobacco Use Types Packs/Day [...] Telephone Encounter - Allison Koenig RN - 04/06/2012 12:51 PM EDT PROCEDURES PERFORMED: by Dr Pritchard 03/16/2012 1. Left carpal tunnel release ([id number]). 2. Left flexor tenosynovectomy. Pt leaves voice mail that he feels his wrist wound may be infected. Have attempted to call patient . Left voice mail to call our departmental secretary to come this afternoon as soon as able. documented in this encounter Plan of Treatment Not on file documented as of this encounter Visit Diagnoses Not on filedocumented in this encounter Care Teams Pe[employer] Financials Consultant Relationship Specialty Start Date End Date Marquez Freed MD [address] [place] [phone] PCP - General 10/07/10 documented as of this encounter
--- OUTSIDE RECORDS SUMMARY | 2024-04-28 18:48 | XMS_ITS | Encounter Summary ---
Author Organization [facility] Address [facility] [place] [address] Care Team Providers Care Shank Piece Tacker Name Role Phone Marquez Freed MD Primary Care Provider [phone] Reason for Visit * Reason Comments Right Hand Pain dos 06/08/12 R carpa l tunnel release workers comp Encounter Details Date Type Department Care Team (Late st Contact Info) Description 08/01/2012 11:00 AM EST Follow-Up [place] [address] Otis Pritchard MD [facility] [place] [address] CTS (carpal tunnel syndrome) (Primary Dx) Discharge Disposition: Home Social History [...] Sign Reading Time Taken Comments Blood Pressure - - Pulse - - Temperature - - Respiratory Rate - - Oxygen Saturation - - Inhaled Oxygen Concentration - - Weight 98.7 kg (217 lb 8 oz) 08/01/2012 10:51 AM EST Height 170.2 cm (5' 7) 08/01/2012 10:51 AM EST Body Mass Index 34.07 08/01/2012 10:51 AM EST documented in this encounter Progress Notes * Otis Pritchard MD - 08/01/2012 11:42 AM EST HISTORY OF PRESENT ILLNESS: Mr. Colorado returns six weeks status post a right carpal tunnel release. He reports that his right hand already feels better than his left does. PHYSICAL EXAMINATION: Examination of both hands today shows that his scars were healed kindly. He does have some thickening in the proximal portion of his right hand more so than the left. He has good total composite flexion, but his side door man strength is weak in both hands. His distal neurovascular exam is intact. 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 Thus, I think he would benefit by a functional capacity evaluation and also vocational rehabilitation. I have reviewed precautions with him. We will plan to see him on a p.r.n. basis. documented in this encounter Plan of Treatment Not on file documented as of this encounter Visit Diagnoses Diagnosis CTS (carpal tunnel syndrome)- Primary Carpal tunnel syndrome documented in this encounter Care Teams Shank Piece Tacker Relationship Specialty Start Date End Date Marquez Freed MD [address] [place] [id number] PCP - General 10/07/10 documented as of this encounter
--- OUTSIDE RECORDS SUMMARY | 2024-04-28 18:48 | XMS_ITS | Encounter Summary ---
Author Organization [facility] Address [facility] [place] [address] Care Team Providers Care Nurse Orthopaedic Name Role Phone Marquez Freed MD Primary Care Provider [phone] Reason for Visit * Reason Comments Left Shoulder Pain L shldr scope, dos 0 09/10/11 Encounter Details Date Type Department Care Team (Late st Contact Info) Description 01/28/2012 9:20 AM EDT Office [place] [address] Otis Pritchard MD [facility] [place] [address] CTS (carpal tunnel syndrome) (Primary Dx) Discharge [...] Sign Reading Time Taken Comments Blood Pressure 145/98 01/28/2012 9:42 AM EDT Pulse - - Temperature - - Respiratory Rate - - Oxygen Saturation - - Inhaled Oxygen Concentration - - Weight 95.3 kg (210 lb) 01/28/2012 9:42 AM EDT Height 170.2 cm (5' 7) 01/28/2012 9:42 AM EDT Body Mass Index 32.89 01/28/2012 9:42 AM EDT documented in this encounter Progress Notes * Otis Pritchard MD - 01/28/2012 9:58 AM EDT Mr. Colorado returns for recheck of his left shoulder. He is now approximately four months status post a left open distal clavicle resection followed by an arthroscopic decompression debridement. He feels that it is going well. His pain has certainly improved, but he does continue to have some limitation of his abduction. Examination today, neuro/musculoskeletal exam of his left shoulder, his wounds have healed kindly. He has excellent range of motion, but he has increasing pain with abduction greater than 120 degrees. Did show him some stretching exercises to improve that. 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 He is previously being documented with EMG nerve conduction studies. He has a positive Tinel's, positive Phalen's, and positive sublimis test. Vascularity intact. PLAN: At this point, he is going to continue his therapy for his left shoulder. He would very much like to proceed with the left carpel tunnel release. We discussed at great length the surgical procedures as well as the risks and the necessary rehabilitation. He travels from a significant distance, so we will plan to get his consent at the day of surgery. I think he understands the risks involved. He knows to call if he has any questions or changes prior to his next visit. documented in this encounter Plan of Treatment Not on file documented as of this encounter Procedures Procedure Name Priority Date/Time Associated Diagnosis Comments MEDIAN NERVE DECOMPRESSION (CARPAL TUNNEL RELEASE) Routine 01/28/2012 9:56 AM EDT documented in this encounter Visit Diagnoses Diagnosis CTS (carpal tunnel syndrome)- Primary Carpal tunnel syndrome documented in this encounter Care Teams Nurse Orthopaedic Relationship Specialty Start Date End Date Marquez Freed MD [address] [place] [id number] PCP - General 10/07/10 documented as of this encounter
--- OUTSIDE RECORDS SUMMARY | 2024-04-28 18:48 | XMS_ITS | Encounter Summary ---
Author Organization [facility] [place] [facility] [place] [address] Care Team Providers Care Jute Bag Sewer Name Role Phone Marquez Freed MD Primary Care Provider [phone] Encounter Details Date Type Department Care Team (Late st Contact Info) Description 02/09/2013 9:45 AM EDT [place] [address] Tan Castaneda MD [facility] [place] [address] CTS (carpal tunnel syndrome) (Primary Dx) Discharge [...] Sign Reading Time Taken Comments Blood Pressure 136/81 02/09/2013 9:54 AM EDT Pulse 63 02/09/2013 9:54 AM EDT Temperature - - Respiratory Rate - - Oxygen Saturation - - Inhaled Oxygen Concentration - - Weight 93 kg (205 lb) 02/09/2013 9:54 AM EDT rep orted Height 170.2 cm (5' 7) 02/09/2013 9:54 AM EDT r eported Body Mass Index 32.11 02/09/2013 9:54 AM EDT documented in this encounter Progress Notes * Kirill Hutson MD - 02/09/2013 10:02 AM EDT Patient name: Dale Colorado Date of : 1970 Patient was referred by Dr. Pritchard for neurologic consultation for residual Hand numbness after surgery. CC: Bilateral hand numbness left more than right HPI: This is a 42-year-old right-handed man who first experienced neurologic symptoms about 8 yearsago. He began to notice intermittent numbness and tingling of his hands. 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 In 2008, things got worse, he had decreased dexterity and was unable to perform his work duties. He underwent electrodiagnostic testing and saw orthopedics here. Over the last year, he has had his right hand than left carpal tunnel release. He also underwent bilateral rotator cuff surgery. He said that the hand symptoms improved after the procedures, but after a few months things went back to the same level. Patient reports his hand feels weak, but is uncertain whether it just is decreased dexterity. He denies any neck pain, he does continue to have some bilateral shoulder pain. He denies any lower extremity tingling or numbness. He does drink regularly. Patient Active Problem List Diagnoses Code ??? Bilateral carpal tunnel syndrome 354.0 ??? Follow-up examination following surgery, right shoulder arhtroscopy V67.00 ??? 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 Denies tobacco, drinks 60/week. Outpatient Encounter Prescriptions as of 02/09/2013 Medication Sig Dispense Refill ??? verapamil (COVERA HS) 240 mg 24 hr tablet Take 240 mg by mouth nightly. ??? DOCOSAHEXANOIC ACID/EPA (FISH OIL ORAL) Take 1,200 mg by mouth daily. ??? niacin 250 mg tablet Take 500 mg by mouth daily. ??? ascorbic acid (VITAMIN C) 500 mg tablet Take 500 mg by mouth daily. ??? loratadine (CLARITIN) 10 mg tablet Take 10 mg by mouth daily as needed. ??? losartan (COZAAR) 50 mg tablet Take 100 mg by mouth daily. Indications: Hypertension ??? citalopram (CELEXA) 20 mg tablet Take 20 mg by mouth nightly. ??? acetaminophen (ACETAMINOPHEN PAIN RELIEF) 500 mg tablet Take 2 tablets by mouth every 8 hours as needed for Pain. 30 tablet 1 ??? pantoprazole (PROTONIX) 40 mg tablet Take 1 tablet by mouth daily. 90 tablet 0 Allergies Allergen Reactions ??? Sulfa (Sulfonamide Antibiotics) Review of systems: Constitutional: No fevers or chills Eyes: No vision changes, no diplopia, no blurry vision ENT: No rhinorrhea or pharyngitis, no meningismus CV: No chest pain or palpitations Resp: No cough, no shortness of breath GI: No nausea, vomiting, diarrhea or constipation : No dysuria, no incontinence Heme: No bleeding or bruising Endo: No diabetes or thyroid disease Neuro: See HPI Psych: No depression, normal sleep [x] Review of systems otherwise negative Objective: Vitals: Temp: -- Heart Rate: [63] Resp: -- BP: (136)/(81) SpO2: -- General: alert, NAD Heart: RRR S1S2 no murmur Lungs: CTAB symmetric expansion Ext: no edema, adequate pulses Neuro exam: MSE: alert, oriented to person, place, time, situation, follows simple and complex commands, speechfluent with no dysarthria or aphasia, recent and remote memory intact, fund of knowledge appropriate for age and education, attention and concentration wnl. CN: PERRL, no nystagmus, EOMI, facial sensation intact, no facial droop or asymmetry, tongue protrudes midline, uvula and palate elevate symmetrically, trap symmetric strength bilaterally Motor: 5/5 RUE 5/5 LUE 5/5 RLE 5/5 LLE Normal bulk and tone positive Tinel sign over bilateral carpal tunnels Reflexes 1+ bilat biceps, brachioradialis, triceps 2+ bilat patella, achilles downgoing toes Sensation: intact light touch, vibration, proprioception, and temperature diffusely Coordination: no tremor Gait: normal stride and armswing, negative romberg. Diagnostic Tests and Images: EMG from 2009 the left median distal motor latency of 4.4 , right was normal. Otherwise normal study. Assessment and Plan: This is a 42-year-old man with 8 years of bilateral hand tingling in a median nerve distribution. On exam the patient has a positive Tinel sign but no real weakness. He had carpal tunnel release donein both hands. We did electrodiagnostic testing in clinic today, he demonstrates some progression of things since the comparison study. He had a prolonged distal motor latency on right and left with left more affected than right. Sensory studies were also abnormal. We did EMG to look for evidence of radiculopathy, this did not reveal any changes. Abductor pollicis brevis on the left had full recruitment. We discussed these findings with the patient and his . They have an appointment with orthopedics today to discuss further directions. The patient is using wrist splints at night , Although he states they are difficult to tolerate. We will defer any further management orthopedics. We arehappy to reassess him at any point otherwise followup as necessary. Thank you for the consultation. Kirill Hutson MD Neurology Staff Note I have reviewed the above fellows's history during the visit and I agree with the details as written. My physical examination confirms the fellow's findings. The assessment and plan were formulated in discussion with me at the time of the visit and I agree with them as documented. I participated inthe EDX studies. Tan Castaneda MD documented in this encounter Plan of Treatment Not on file documented as of this encounter Visit Diagnoses Diagnosis CTS (carpal tunnel syndrome)- Primary Carpal tunnel syndrome documented in this encounter Care Teams Jute Bag Sewer Relationship Specialty Start Date End Date Marquez Freed MD [address] [place] [id number] PCP - General 10/07/10 documented as of this encounter
--- OUTSIDE RECORDS SUMMARY | 2024-04-28 18:48 | XMS_ITS | Encounter Summary ---
Author Organization [facility] [place] [address] Care Team Providers Care Linotype Operator Name Role Phone Marquez Freed MD Primary Care Provider [phone] Encounter Details Date Type Department Care Team (Late st Contact Info) Description 02/09/2013 External [place] [address] Tan Castaneda MD [facility] [place] [address] Social History Tobacco Use Types Packs/Day Years [...] Procedure Name Priority Date/Time Associated Diagnosis Comments EMG SCAN Routine 02/09/2013 documented in this encounter Results * Scan Doc: EMG (02/09/2013) Tan Castaneda MD MEDIA MGR SCAN EXT O RDR/RSLT documented in this encounter Visit Diagnoses Not on filedocumented in this encounter Care Teams Linotype Operator Relationship Specialty Start Date End Date Marquez Freed MD [address] [place] [id number] PCP - General 10/07/10 documented as of this encounter
--- OUTSIDE RECORDS SUMMARY | 2024-04-28 18:48 | XMS_ITS | Encounter Summary ---
Author Organization [facility] Address [facility] [place] [address] Care Team Providers Care Warehouse Operations Associate Name Role Phone Marquez Freed MD Primary Care Provider [phone] Encounter Details Date Type Department Care Team (Late st Contact Info) Description 04/06/2013 1:25 PM [place] [address] Vera Sutton MD [facility] [place] [address] Zulema Titus Anesthesia Record Procedure Summary Procedure Name Responsible Anesthesiologist Anesthesia Start Time Anesthesia Stop Time MRI WITH ANESTHESIA (WRVU *) (Bilateral: Hand) Vera Sutton MD 04/06/13 1325 04/06/13 1515 Events Date Time Event Comment 04/06/2013 1315 AN Verify 1325 Start 1325 An Start Data 1333 Anesthesia Ready 1333 Quick Note Pt obstructs ea sily. Positioned left lateral decub for scan very helpful. Natural airway with O2 face mask 1402 Quick Note Pt required rep ositioning. Bolus given. Nasal trumpet placed 1505 an stop data Returned to [facility] phase 2. Vss. Report to RN 1515 Stop 1533 Meds Name Total Midazolam 4 mg propofol 70 mg propofol INF 967.17 mg lactated ringers 0 mL * Agents Name O2 Auxiliary Flowmeter 1 * Blood No blood administrations on file. Lines, Drains, and Airways Type Details Placement Removal (RETIRED) Non-Surgical Airway Nasopharyngeal Size: 32 Fr 04/06/13 1400 by Aurelia Pan CRNA Incision shoulder; 05/04/22 ( LDA cleanup utility [...] (RETIRED) Peripheral IV Line - Single Lumen 04/06/13; 1237; 04/06/13; 1539 04/06/13 1237 by Claudia Boykin RN 04/06/13 1539 by Allison Jackson RN documented in this encounter Social History [...] OR Notes * Anesthesia Postprocedure Evaluation - Vera Sutton MD - 04/06/2013 3:33 PM EDT Patient: Dale Colorado Procedure(s) Performed: Procedure(s): MRI WITH ANESTHESIA Actual Anesthetic: No value filed. Patient location: PACU Post-op pain: Adequate analgesia Post-op nausea: no nausea or vomiting Last Vitals: Filed Vitals: 04/06/13 1500 BP: 122/73 Pulse: 50 Temp: 36 ??C (96.8 ??F) Resp: 16 Post-op cardiovascular and respiratory status: is stable Level of consciousness: awake, alert and oriented Complications: no apparent complications and tolerated the procedure well Fluid Status: normal * Anesthesia Preprocedure Evaluation - Vera Sutton MD - 04/06/2013 12:48 PM EDT Pre-Anesthesia Evaluation for: Dale Colorado a 42 y.o. male. Procedure(s): MRI WITH ANESTHESIA Patient Active Problem List Diagnoses ??? HTN (hypertension) ??? Hand pain ??? Follow-up examination following surgery, right shoulder arhtroscopy ??? Bilateral carpal tunnel syndrome Past Medical History Diagnosis Date ??? Fatty liver ??? Hypertension Past Surgical History Procedure Date ??? Shldr arthroscop, exten debride 03/24/2011 ARTHROSCOPY SHOULDER DEBRIDEMENT EXTENSIVE performed by SOFIE BECKFORD at [facility] ??? Shldr arthroscop, part acromioplas 03/24/2011 ARTHROSCOPY SHOULDER, SUBACROMIAL DECOMPRESSION performed by SOFIE BECKFORD at [facility] ??? Partial removal, clavicle 03/24/2011 CLAVICULECTOMY, PARTIAL performed by SOFIE BECKFORD at [facility] ??? Partial removal, clavicle 09/10/2011 CLAVICULECTOMY, PARTIAL performed by SOFIE BECKFORD at [facility] ??? Shldr arthroscop, exten debride 09/10/2011 ARTHROSCOPY SHOULDER DEBRIDEMENT EXTENSIVE performed by SOFIE BECKFORD at [facility] ??? Shldr arthroscop, part acromioplas 09/10/2011 ARTHROSCOPY SHOULDER, SUBACROMIAL DECOMPRESSION performed by SOFIE BECKFORD at [facility] ??? Revise median n/carpal tunnel surg 03/16/2012 MEDIAN NERVE DECOMPRESSION (CARPAL TUNNEL RELEASE) performed by SOFIE BECKFORD at [facility] ??? Revise median n/carpal tunnel surg 06/08/2012 MEDIAN NERVE DECOMPRESSION (CARPAL TUNNEL RELEASE) performed by SOFIE BECKFORD at [facility] History Substance Use Topics ??? Smoking status: Never Smoker ??? Smokeless tobacco: Never Used Comment: quit chewing tobacco 7-8yrs. ago ??? Alcohol Use: 40.2 oz/week 60 Cans of beer, 7 Shots of liquor per week daily History Drug Use No Allergies Allergen Reactions ??? Sulfa (Sulfonamide Antibiotics) Medications: MAR and/or home medications have been reviewed. Physical Exam: There were no vitals filed for this visit. There is no height or weight on file to calculate BMI. Airway Assessment: Mallampati: II TM distance: >3 FB Neck ROM: full Cardiovascular Assessment: Rhythm: regular Pulmonary Assessment: Dental Assessment: - normal exam Misc Assessment: Anesthesia Plan: ASA 2 MAC, with a(n) intravenous induction Region - Other Informed Consent: Anesthetic plan and risks discussed with patient. Plan discussed with [facility] [employer] and attending. Misc. Assessment: documented in this encounter Miscellaneous Notes * Addendum Note - Aurelia Pan CRNA - 04/06/2013 4:37 PM EDT Addendum created 04/06/13 1637 by Aurelia Pan CRNA Modules edited:Anesthesia Events * Addendum Note - Aurelia Pan CRNA - 04/06/2013 4:37 PM EDT Addendum created 04/06/13 1637 by Aurelia Pan CRNA Modules edited:Anesthesia Events documented in this encounter Plan of Treatment Not on file documented as of this encounter Visit Diagnoses Not on filedocumented in this encounter Administered Medications Inactive Administered Medications - up to 3 most recent administrations Medication Order MAR Action Action Date Dose Rate Site lactated ringers infusion CONTINUOUS PRN, Starting on Roz 04/06/13 at 1315, Until Roz 04/06/13 at 1533, Anesthesia Intra-op New Bag 04/06/2013 1:15 PM EDT mL midazolam (VERSED) injection PRN, Starting on Roz 04/06/13 at 1325, Until Roz 04/06/13 at 1533, Sleep, Anesthesia Intra-op, Routine Given 04/06/2013 1:32 PM EDT 2 mg Given 04/06/2013 1:25 PM EDT 2 mg propofol (DIPRIVAN) 10 mg/mL bolus injection (Anesthesia) PRN, Starting on Roz 04/06/13 at 1332, Until Roz 04/06/13 at 1533, Anesthesia Intra-op Given 04/06/2013 2:00 PM EDT 20 mg Given 04/06/2013 1:32 PM EDT 50 mg propofol (DIPRIVAN) infusion CONTINUOUS PRN, Starting on Roz 04/06/13 at 1332, Until Roz 04/06/13 at 1533, Anesthesia Intra-op, Routine New Bag 04/06/2013 1:32 PM EDT 100 mcg/kg/min 56.3 mL/hr documented in this encounter Care Teams Warehouse Operations Associate Relationship Specialty Start Date End Date Marquez Freed MD [address] [place] [id number] PCP - General 10/07/10 documented as of this encounter
--- OUTSIDE RECORDS SUMMARY | 2024-04-28 18:48 | XMS_ITS | Encounter Summary ---
Author Organization [facility] [place] [address] Care Team Providers Care Mirror Silverer Name Role Phone Marquez Freed MD Primary Care Provider [phone] Reason for Referral * Diagnostic Test (Routine) - Denied Specialty Diagnoses / Procedures Referred By Faustino connors Referred To Contact Radiology Diagnoses Chronic pain of both shoulders Procedures MRI Shoulder wo Contrast Left (Generic) Liss Santizo PA [facility] [place] [address] [place] [address] Referral ID Status Reason Start Date Expiration Date V isits Requested Visits Authorized [id number] Denied Specialty Service Requested 10/19/2017 10/19/2018 1 0 Reason for Visit * Reason Comments Bilateral Shoulder Pain Encounter Details Date Type Department Care Team (Late st Contact Info) Description 10/19/2017 10:30 AM EST Office [place] [address] Bilateral carpal tunnel syndrome; Chronic pain of both shoulders Social History Tobacco Use Types Packs/Day Years [...] Sign Reading Time Taken Comments Blood Pressure 117/70 10/19/2017 10:14 AM EST Pulse 62 10/19/2017 10:14 AM EST Temperature - - Respiratory Rate - - Oxygen Saturation - - Inhaled Oxygen Concentration - - Weight 96.2 kg (212 lb) 10/19/2017 10:14 AM EST state Height 170.2 cm (5' 7) 10/19/2017 10:14 AM EST sated Body Mass Index 33.2 10/19/2017 10:14 AM EST documented in this encounter Progress Notes * Liss Santizo PA - 10/19/2017 10:30 AM EST PATIENT NAME: Dale Colorado AGE: 47 y.o. MR#: [id number] DATE OF VISIT: 10/19/2017 DATE OF INJURY/ONSET: 03/22/2009 (worker's comp) 03/24/2011- Right distal clavicle excision, subacromial decompression 09/10/2011- Left distal clavicle excision, subacromial decompression 03/16/2012- Left carpal tunnel release 06/08/2012- Right carpal tunnel release STAFF: Dr. Pritchard CHIEF COMPLAINT: follow up for L>R shoulder pain, L>R hand numbness HISTORY OF PRESENT ILLNESS: Mr. Colorado is a 47 y.o. year old male who comes into clinic today for follow up regarding the bilateral shoulders and hands. He was last seen in 2012. He was originally referred to orthopedics following a work- related injury in 2008. 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 His right shoulder surgery was performed in March 2011 and he had his left shoulder arthroscopy in September 2011. His carpal tunnel releases were performed in 2011 as well. He states he never regained full shoul gurjit range of motion after his left shoulder surgery. He also had some persistent hand numbness after his carpal tunnel releases. He had repeat nerve studies after surgery. He continued to have increased left median motor latencies and was offered a revision carpal tunnel surgery, but declined. He presents today with worsening symptoms primarily in the left arm. He denies having any new injuries. 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 He finds that his shoulder and hand symptoms primarily bother him at bedtime. He has been taking ibuprofen as needed, but otherwise has not had any formal therapy. PHYSICAL EXAM: Mr. Colorado is alert and oriented. He is in no acute discomfort and is resting comfortably in the exam room. Inspection: Well-healed scars from previous surgery. No erythema, ecchymosis, or swelling over the bilateral shoulders and bilateral wrists. Palpation: He has some pain over the posterior subacromial space over the bilateral shoulders. Thisis more pronounced on the left. He also has noticed some occasional pain over the left lateral epicondyles. He has some pain over the dorsal aspect of both wrists with activity, but no significant point tenderness. There is no triggering of the digits. ROM/Strength: He is able to perform active forward flexion 165?? bilaterally with both shoulders. His abduction is limited to 90?? on the left. He has 60?? of external rotation bilaterally grade internal rotation is to T10 bilaterally. He has full elbow, wrist, and finger range of motion without evidence of intrinsic atrophy in either hand. He has 5/5 rotator cuff strength in all planes on the right, but he has 4+/5 forward flexion and empty can on the left. His left internal and external rotation is 5/5. Orthopedic testing: He has positive impingement testing bilaterally, worse on the left than right. He also has mildly positive tennis elbow testing on the left. Negative Tinel's over the carpal tunnel bilaterally. Negative Phalen's and Rory's compression bilaterally. Neurovascular: He reports intact sensation in the median distribution bilaterally. He has symptoms in the median distribution at bedtime on the left. He has intact sensation over both shoulders. Hands are well perfused. DIAGNOSTIC STUDIES: Bilateral shoulder x-rays were personally reviewed. He is status post distal clavicle excision. He has intact glenohumeral joint space bilaterally. No acute fractures or dislocations are noted. His previous nerve conduction studies were also reviewed. He had a 5 ms left median motor latency after surgery. His right median motor latency was 4.3 ms. ASSESSMENT: Left greater than right shoulder pain with left rotator cuff weakness, left greater than right hand numbness with persistent median nerve dysfunction on repeat nerve study PLAN: Dr. Pritchard also evaluated and spoke with the patient at today's visit. We will proceed with an MRI with oral sedation for the left shoulder to rule out a full-thickness rotator cuff tear. If he has a rotator cuff tear we will discuss whether surgery to repair this would be recommended. If his rotator cuff remains intact he may benefit from physical therapy and possibly a subacromial cortisone injection. His elbow pain may be referred from his shoulder, but he also has some mild lateral epicondylitis symptoms. We can discuss treatment for this at his next visit after we have had a chance to review his MRI. With respect to his hand numbness, revision carpal tunnel surgery for the left hand is also a possibility. He was hesitant to proceed with this in the past and so would like to think about whether this is something he would want to pursue. His worker's [employer] paperwork was filled out today. He will continue to work full duty. He will return for follow up with Dr. Pritchard after the MRI. The patient understands to contact us if they have any other questions or concerns. The above documentation was completed using [employer] voice recognition software. documented in this encounter Plan of Treatment Not on file documented as of this encounter Results * MRI Shoulder wo [...] 8 image 15) as well as low-grade ckhrqnt-psrynsfryxrdgxm-tuyadzm tearing of the supraspinatus tendon (series 8 [...] IMPRESSION 1. Rotator cuff tendinosis, with low-grade cuzgcnl-chhqnpkcoaxjzkhltg-kzbhaix and bursal-surface tearing of the supraspinatus, as [...] amount of subacromial/subdeltoid bursal fluid, slightly increased [id number], compatible with mild bursitis. Otis Pritchard MD IMG MRI ORDERABLES documented in this encounter Visit Diagnoses Diagnosis Bilateral carpal tunnel syndrome Carpal tunnel syndrome Chronic pain of both shoulders Pain in joint, shoulder region Chronic pain of both shoulders Pain in joint, shoulder region documented in this encounter Care Teams Mirror Silverer Relationship Specialty Start Date End Date Marquez Freed MD [address] [place] [id number] PCP - General 10/07/10 documented as of this encounter
--- OUTSIDE RECORDS SUMMARY | 2024-04-28 18:48 | XMS_ITS | Encounter Summary ---
Author Organization [facility] [place] [address] Care Team Providers Care Lead Burner Supervisor Name Role Phone Marquez Freed MD Primary Care Provider [phone] Reason for Visit * Reason Onset Date Comments Advice Only 03/10/2012 Encounter Details Date Type Department Care Team (Late st Contact Info) Description 03/10/2012 [place]phone [place] [phone] Velia Costello MSW Advice Only Social History Tobacco Use Types Packs/Day Years Used Date Smoking Tobacco: Never Alcohol Use Standard Drinks/Week Comments Yes 62 (1 standard drink = 0.6 oz pu re alcohol) Sex and Gender Information Value Date Recorded Sex Assigned at Not on file Gender Identity Not on file Sexual Orientation Not on file documented as of this encounter Miscellaneous Notes * Telephone Encounter - Velia Costello MSW - 03/10/2012 10:51 AM EDT [employer] [place] [employer] 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 Pritchard. documented in this encounter Plan of Treatment Not on file documented as of this encounter Visit Diagnoses Not on filedocumented in this encounter Care Teams Lead Burner Supervisor Relationship Specialty Start Date End Date Marquez Freed MD [address] [place] [id number] PCP - General 10/07/10 documented as of this encounter
--- OUTSIDE RECORDS SUMMARY | 2024-04-28 18:48 | XMS_ITS | Encounter Summary ---
Author Organization [facility] [place] [address] Care Team Providers Care Emergency Man Name Role Phone Marquez Freed MD Primary Care Provider [phone] Reason for Referral * Consultation (Routine) - Closed Specialty Diagnoses / Procedures Referred By Faustino connors Referred To Contact Rheumatology Diagnoses Bilateral hand pain Otis Pritchard MD [facility] [place] [address] [facility] [address] [place] [address] Referral ID Status Reason Start Date Expiration Date V isits Requested Visits Authorized [id number] Closed Consult, Test & Treat 02/09/2013 08/08/2013 1 1 Reason for Visit * Reason Comments Bilateral Wrist Pain sp r ctr dos 2 l ctr dos 03/2012 Encounter Details Date Type Department Care Team (Late st Contact Info) Description 02/09/2013 12:00 PM EDT Office [place] [address] Otis Pritchard MD [facility] [place] [address] Bilateral hand pain (Primary Dx) Discharge Disposition: Home Social History [...] Sign Reading Time Taken Comments Blood Pressure 123/82 02/09/2013 12:27 PM EDT Pulse 60 02/09/2013 12:27 PM EDT Temperature - - Respiratory Rate - - Oxygen Saturation - - Inhaled Oxygen Concentration - - Weight 93 kg (205 lb) 02/09/2013 12:27 PM EDT Height 170.2 cm (5' 7) 02/09/2013 12:27 PM EDT Body Mass Index 32.11 02/09/2013 12:27 PM EDT documented in this encounter Progress Notes * Otis Pritchard MD - 02/09/2013 1:13 PM EDT HISTORY OF PRESENT ILLNESS: and Mrs. Colorado return for recheck of both of Mr. Colorado's hands. In talking with him today, his primary complaint seems to be pain in both hands, especially with gripping activities. It sounds as though as a result of his pain, he has reflex inhibition and resultant weakness. However, he does have some numbness in both hands upon awakening in the mornings. He has sustained no new trauma. He has been working with Workman's Compensation people and hopefully will be able to participate in vocational rehabilitation. PHYSICAL EXAMINATION: Examination today, Neuro/Musculoskeletal Exam: His shoulders show excellent painless range of motion and strength. His elbows show full range of motion, but his left elbow, he has medial and lateral tenderness consistent with medial and lateral epicondylitis. His forearms are soft. His primary discomfort in his hand is at the basilar joints of his thumbs, with positive grind test bilaterally. He also describes a pain in his fingertips in a median nerve distribution. He also feels that subjectively he has weakness in his hands. He was seen by Dr. 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 The difficult part of this is the fact that his preoperative studies were done by Dr. Rosas with different technique, different machine, and she is no longer here. However, the values today do fall out of the normal range. PLAN: This is a counseling dominated encounter 40 minutes in length. I personally spent the entire time with and Mrs. Colorado reviewing his history, his studies, his clinical examination. We had previously ordered x-rays of his hands, but unfortunately he did not have them done at that time. Thus, we will repeat those today. I have also given him a referral to OT for strengthening of his hands and also basilar joint splints and in addition because of this fact that he feels that his symptoms are worse in the mornings, we will also have him seen by rheumatology. We will plan to see him back following these studies or sooner p.r.n. documented in this encounter Plan of Treatment Scheduled Referrals Name Type Priority Associated Diagnoses Order Schedule Referral to Rheumatology Outpatient Referral Routine Bilateral hand pain Ordered: 02/09/2013 documented as of this encounter Visit Diagnoses Diagnosis Bilateral hand pain- Primary Pain in limb documented in this encounter Care Teams Emergency Man Relationship Specialty Start Date End Date Marquez Freed MD [address] [place] [address] PCP - General 10/07/10 documented as of this encounter
--- OUTSIDE RECORDS SUMMARY | 2024-04-28 18:48 | XMS_ITS | Encounter Summary ---
Author Organization [facility] [place] [address] Care Team Providers Care Naprapath Name Role Phone Marquez Freed MD Primary Care Provider [phone] Reason for Referral * Occupational Therapy (Routine) - Closed Specialty Diagnoses / Procedures Referred By Faustino connors Referred To Contact Occupational Therapy Diagnoses Bilateral carpal tunnel syndrome Tunde Houser MD [facility] [place] [address] [facility] [place] [address] Referral ID Status Reason Start Date Expiration Date V isits Requested Visits Authorized [id number] Closed Evaluate and Treat 06/23/2012 12/20/2012 1 1 Reason for Visit * Reason Comments Follow Up Surgery SP R CTR DOS: 2 Encounter Details Date Type Department Care Team (Late st Contact Info) Description 06/23/2012 12:30 PM EDT [place] [address] Sofie Pritchard MD [facility] [place] [address] Bilateral carpal tunnel syndrome (Primary Dx) Discharge [...] Sign Reading Time Taken Comments Blood Pressure 152/98 06/23/2012 12:53 PM EDT Pulse 88 06/23/2012 12:53 PM EDT Temperature - - Respiratory Rate - - Oxygen Saturation - - Inhaled Oxygen Concentration - - Weight 93 kg (205 lb) 06/23/2012 12:53 PM EDT Height 170.2 cm (5' 7) 06/23/2012 12:53 PM EDT Body Mass Index 32.11 06/23/2012 12:53 PM EDT documented in this encounter Progress Notes * Tunde Houser MD - 06/23/2012 1:54 PM EDT DATE OF PROCEDURE: 06/08/2012 SURGICAL STAFF/ASSISTANTS SOFIE PRITCHARD M.D. LAUREN BENDER M.D. PROCEDURE: Right carpal tunnel release (91273). Dale returns in followup. He is status post right carpal tunnel as noted above. He is doing well and his dressing and splint have been removed. He is having minimal discomfort. Steri-Strips are in place over his incision. There is no drainage or maico-incisional erythema. He is able to move the wrist and fingers. He denies having median nerve symptoms since the procedure has been done. No imaging was done at this visit. ASSESSMENT AND PLAN: Dale is doing well status post the above procedure. He is going to occupational therapy today for a cock-up wrist splint and we will start hand therapy closer to home. He will see us back in six weeks for final follow up. * Sofie Pritchard MD - 06/23/2012 1:51 PM EDT I examined Dale Colorado and I agree with 's note. SOFIE PRITCHARD MD documented in this encounter Plan of Treatment Scheduled Referrals Name Type Priority Associated Diagnoses Order Schedule Referral to Occupational Therapy Outpatient Referral Routine Bilateral carpal tunnel syndrome Ordered: 06/23/2012 documented as of this encounter Visit Diagnoses Diagnosis Bilateral carpal tunnel syndrome- Primary Carpal tunnel syndrome documented in this encounter Care Teams Naprapath Relationship Specialty Start Date End Date Marquez Freed MD [address] [address] PCP - General 10/07/10 documented as of this encounter
--- OUTSIDE RECORDS SUMMARY | 2024-04-28 18:48 | XMS_ITS | Encounter Summary ---
Author Organization [place] [address] Care Team Providers Care Spray Gunner Name Role Phone Marquez Freed MD Primary Care Provider [phone] Reason for Referral * Occupational Therapy (Routine) - Complete - Patient Will Schedule External Appt Specialty Diagnoses / Procedures Referred By Faustino connors Referred To Contact Occupational Therapy Diagnoses Numbness and tingling in left hand Liset Cassidy APRN [facility] [place] [address] [facility] [place] [address] Referral ID Status Reason Start Date Expiration Date Visits Requested Visits Authorized [id number] Complete - Patient Will Schedule External Appt Evaluate and Treat 03/28/2012 09/24/2012 1 1 Reason for Visit * Reason Comments Follow Up Surgery L CTR, dos 03/16/12 Encounter Details Date Type Department Care Team (Late st Contact Info) Description 03/28/2012 10:40 AM EDT Office [place] [address] Mitch Albert PA [facility] DR [place]THOPAEDIC [place] [address] Numbness and tingling in left hand (Primary Dx) Discharge Disposition: Home Social History [...] as of this encounter Progress Notes * Liset Cassidy, BENEFIT AUTHORIZER - 03/28/2012 11:15 AM EDT PATIENT NAME: Dale Colorado AGE: 41 y.o. MR#: [id number] DATE OF VISIT: 03/28/2012 DATE OF SRUGERY: March 16, 2012. STAFF: Dr. Otis Pritchard CHIEF COMPLAINT: 12 days post- carpal tunnel release on March 16, [address] Pritchard. HISTORY OF PRESENT ILLNESS Mr. Miroslava meade 41 y.o. year old male comes into clinic today for 12 days post left carpal tunnel release. The patient denies pain, fever, chills and feeling unwell. He states that he still has slight numbness in his fingers, but he states that the pain and numbness he experienced before surgery is much improved. He is pleased with the results of the surgery thus far. He presents in clinic today with his . PHYSICAL EXAM: Mr. Miroslava meade 41 y.oNinoska is alert and oriented. He appears in no acute discomfort and is resting comfortably in a chair in the exam room. Inspection: No edema, drainage, erythema or ecchymosis Palpation: Nontender to palpation ROM / Strength: Grasp strength not tested at this visit; the patient is able to form a fist and fanhis fingers Orthopedic testing: None at this visit Neurological: Handed sensate at the radial, medial, and ulnar nerve distributions 2+ distal pulses are equal RADIOLOGICAL STUDIES: None at this visit ASSESSMENT: Recovering well 12 days after carpal tunnel release by Dr. Pritchard. PLAN: Pertinent positives were resolving symptoms and no signs of infection postoperatively . The sutures were removed and Steri-Strips were applied. I discussed returning to light activity, such as watching TV, using utensils. 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 I also discussed: avoiding heavy grasping, may shower, avoid soaking for 5 to 7 days, begin scar massage with cocoa butter or similar cream for scar softening. The patient will see occupational therapy this morning for a cockup wrist splint. Return in ~2 weeks if there is any continued discomfort or concerns, such as stiffness, numbness, or pain. May increase use of the hand as comfort allows. [facility] Workmen's Compensation form was filled out at this visit. The patient understands and agrees with the plan. The patient will followup with Mitch Albert PA-C in 2 weeks. This dictation was performed using [employer] dictaction. I have attempted to edit the note, but there may still be errors. documented in this encounter Plan of Treatment Scheduled Referrals Name Type Priority Associated Diagnoses Order Schedule REFERRAL TO OCCUPATIONAL THERAPY Outpatient Referral Routine Numbness and tingling in left hand Ordered: 03/28/2012 documented as of this encounter Visit Diagnoses Diagnosis Numbness and tingling in left hand- Primary Disturbance of skin sensation documented in this encounter Care Teams Spray Gunner Relationship Specialty Start Date End Date Marquez Freed MD [address] [place] [address] PCP - General 10/07/10 documented as of this encounter
--- OUTSIDE RECORDS SUMMARY | 2024-04-28 18:48 | XMS_ITS | Encounter Summary ---
Author Organization [facility] Address [facility] [place] [address] Care Team Providers Care Dentistry Professor Name Role Phone Marquez Freed MD Primary Care Provider Encounter Details Date Type Department Care Team (Late st Contact Info) Description 10/19/2017 Orders [place] [address] Rashida Hughes Social History Tobacco Use Types Packs/Day Years [...] on filedocumented in this encounter Care Teams Dentistry Professor Relationship Specialty Start Date End Date Marquez Freed MD [address] [place] [address] PCP - General 10/07/10 documented as of this encounter
--- OUTSIDE RECORDS SUMMARY | 2024-04-28 18:48 | XMS_ITS | Encounter Summary ---
Author Organization [facility] [place] [address] Care Team Providers Care Environmental Resource Specialist Name Role Phone Marquez Freed MD Primary Care Provider [phone] Reason for Referral * Occupational Therapy (Routine) - Complete - Patient Will Schedule External Appt Specialty Diagnoses / Procedures Referred By Faustino connors Referred To Contact Occupational Therapy Diagnoses H/O carpal tunnel repair [facility] [address] [place] [address] [facility] [place] [address] Referral ID Status Reason Start Date Expiration Date Visits Requested Visits Authorized [id number] Complete - Patient Will Schedule External Appt Evaluate and Treat 2 01/31/2013 1 1 Encounter Details Date Type Department Care Team (Late st Contact Info) Description 08/04/2012 Orders [place] [address] Vivian Haskins RN H/O carpal tunnel repair (Primary Dx) Social History Tobacco Use Types Packs/Day Years Used Date Smoking Tobacco: Never Smokeless Tobacco: Never Alcohol Use Standard Drinks/Week Comments Yes 62 (1 standard drink = 0.6 oz pu re alcohol) Sex and Gender Information Value Date Recorded Sex Assigned at Not on file Gender Identity Not on file Sexual Orientation Not on file documented as of this encounter Plan of Treatment Scheduled Referrals Name Type Priority Associated Diagnoses Order Schedule Referral to Occupational Therapy Outpatient Referral Routine H/O carpal tunnel repair Ordered: 08/04/2012 documented as of this encounter Visit Diagnoses Diagnosis H/O carpal tunnel repair- Primary Personal history of surgery to other organs documented in this encounter Care Teams Environmental Resource Specialist Relationship Specialty Start Date End Date Marquez Freed MD [address] [address] PCP - General 10/07/10 documented as of this encounter
--- OUTSIDE RECORDS SUMMARY | 2024-04-28 18:48 | XMS_ITS | Encounter Summary ---
Author Organization [facility] [place] [address] Care Team Providers Care Commercial Sheet Metal Foreman Name Role Phone Marquez Freed MD Primary Care Provider [phone] Encounter Details Date Type Department Care Team (Late st Contact Info) Description 06/08/2012 8:15 AM EDT - 06/08/2012 9:30 AM EDT Surgery [place] [address] Sofie Pritchard MD [facility] DR [place] [address] MEDIAN NERVE DECOMPRESSION (CARPAL TUNNEL RELEASE) (WRVU [...] 5pm or on a weekend: Call the [facility] automatic riveting machine operator and ask for the doctor printed circuit boards contact printer covering for Dr Pritchard. * Patient Instructions* [...] so plan accordingly. Call the Orthopaedic Clinic ([phone] during business hours -; after-hours or on weekends call [phone] and ask for the Ortho resident on-call [...] Operative Note Patient Name: Dale Colorado : [id number] MR#: [id number] Case Date: 06/08/2012 Surgeon: Surgeon(s) and Role: [...] tunnel syndrome. PROCEDURE: Right carpal tunnel release (10871). 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 I have followed him for several years [...] table. A time-out was performed as per [facility] protocol. His right upper extremity was prepped [...] Site bacitracin injection ONCE PRN, Starting on Wed06/08/12 at 0904, Until Wed06/08/12 at 1247, Intra-Operative (Intra-Procedure), Routine Given 06/08/2012 9:04 AM EDT 50,000 Units 19- Surgical Site BUpivacaine-epiNEPHr ine 0.25 %-1:200,000 injection ONCE PRN, Starting on Wed06/08/12 at 0903, Until Wed06/08/12 at 1247, Intra-Operative (Intra-Procedure), Routine Given 06/08/2012 9:03 AM EDT 12.5 mg 19- Surgical Site ceFAZolin (ANCEF) 2,000 [...] Until Wed06/08/12 at 1247, Intra-Operative (Intra-Procedure), Routine 09 (Given - Provid er: Sofie Pritchard MD - Comment: irrigation) BUpivacaine-epiNEPHrine 0.25 %-1:200,000 injection (CANCELED) ONCE PRN, Starting on Wed06/08/12 at 0903, Until Wed06/08/12 at 1247, Intra-Operative (Intra-Procedure), Routine 902 (Given - Provid er: Sofie Pritchard MD) documented in this encounter Care Teams Commercial Sheet Metal Foreman Relationship Specialty Start Date End Date Marquez Freed MD [address] [place] [address] PCP - General 10/07/10 documented as of this encounter
--- OUTSIDE RECORDS SUMMARY | 2024-04-28 18:48 | XMS_ITS | Encounter Summary ---
Author Organization [facility] Address [facility] [place] [address] Care Team Providers Care Machine Puller Name Role Phone Marquez Freed MD Primary Care Provider [phone] Encounter Details Date Type Department Care Team (Latest Contact Info) Description 02/09/2013 1:15 PM EDT - 02/09/2013 11:59 PM EDT Hospital Encounter XRay at [address] [place] [address] Bilateral hand pain Social History Tobacco Use Types Packs/Day Years [...] tablet Take 20 mg by mouth nightly. DOCOSAHEXANOIC ACID/EPA (FISH OIL ORAL) Take 1,200 mg by mouth daily. 03/17/2013 niacin 250 mg tablet Take 500 mg by mouth daily. 03/17/2013 ascorbic acid (VITAMIN C) 500 mg tablet Take 500 mg by mouth daily. 03/17/2013 acetaminophen (ACETAMINOPHEN PAIN RELIEF) 500 mg tablet [...] Name Priority Date/Time Associated Diagnosis Comments XR HANDS MIN 3 VIEWS BILAT Routine 02/09/2013 1:41 PM EDT Pain in limb documented in this encounter Results * XR Bilateral Hands Minimum 3 Views (02/09/2013 1:41 PM EDT) Anatomical Region Laterality Modality Hand Bilateral Radiographic Rufina ging 02/09/2013 1:41 PM EDT Narrative 02/09/2013 5:04 PM EDT Examination BILATERAL HANDS MIN 3 VIEWS Clinical History BASILAR JOINT PAIN Comparison None. Technique 3 views bilateral hands. Findings No acute fracture or dislocation is identified. ??The 1st CMC joint spaces bilaterally appear maintained. ??No appreciable osteophytosis at this location. ?? There tiny marginal osteophytes at the thumb interphalangeal joints bilaterally indicative of mild degenerative change. ??Remainder joint spaces maintained. ??No chondrocalcinosis or erosions. ??2-3 mm metallic radiodensity projecting over the radial aspect of the index base of proximal phalanx, suspicious for a foreign body. Impression No fracture or dislocation. Minimal thumb IP joint degenerative change left greater than right. 1st CMC joint spaces appear maintained. 2-3 mm metallic radiodensity/ foreign body along the radial aspect of the base of the right index proximal phalanx. Procedure Note Shelton Pedroza MD - 02/09/2013 Examination BILATERAL HANDS MIN 3 VIEWS Clinical History BASILAR JOINT PAIN Comparison None. Technique 3 views bilateral hands. Findings No acute fracture or dislocation is identified. The 1st CMC joint spaces bilaterally appear maintained. No appreciable osteophytosis at thislocation. There tiny marginal osteophytes at the thumb interphalangeal jointsbilaterally indicative of mild degenerative change. Remainder joint spacesmaintained. No chondrocalcinosis or erosions. 2-3 mm metallic radiodensity projectingover the radial aspect of the index base of proximal phalanx, suspicious for a foreign body. Impression No fracture or dislocation. Minimal thumb IP joint degenerative change left greater than right. 1st CMC joint spaces appear maintained. 2-3 mm metallic radiodensity/ foreign body along the radial aspect of thebase of the right index proximal phalanx. Otis Pritchard MD IMG DX ORDERABLES documented in this encounter Visit Diagnoses Diagnosis Bilateral hand pain Pain in limb documented in this encounter Care Teams Machine Puller Relationship Specialty Start Date End Date Marquez Freed MD [address] [place] [address] PCP - General 10/07/10 documented as of this encounter
--- OUTSIDE RECORDS SUMMARY | 2024-04-28 18:48 | XMS_ITS | Encounter Summary ---
Author Organization [facility] Address [facility] [place] [address] Care Team Providers Care Emission Specialist Name Role Phone Marquez Freed MD Primary Care Provider [phone] Reason for Visit * Auth/Cert Specialty Diagnoses / Procedures Referred By Faustino t Referred To Contact Diagnoses CHRONIC PAIN OF BOTH SHOULDERS. LEFT SHOULDER PAIN AND WEAKNESS, EVALUATING FOR ROTATOR CUFF TEAR. Procedures PRG UNLISTED MRI PROCEDURE MRI WITH ANESTHESIA (WRVU *) Referral ID Status Reason Start Date Expiration Date Visits Re quested Visits Authorized [id number] 1 1 Encounter Details Date Type Department Care Team (Latest Contact Info) Description 11/04/2017 9:14 AM EST - 11/04/2017 12:38 PM [facility] Hospital Encounter Same Day Program at [facility] [place] [address] Chris Pérez MD [facility] [place] [address] Discharge Disposition: Home Social History Tobacco Use [...] on filedocumented in this encounter Care Teams Emission Specialist Relationship Specialty Start Date End Date Marquez Freed MD [address] [place] [address] PCP - General 10/07/10 documented as of this encounter
--- OUTSIDE RECORDS SUMMARY | 2024-04-28 18:48 | XMS_ITS | Encounter Summary ---
Author Organization [facility] Address [facility] [place] [address] Care Team Providers Care Band Salvager Name Role Phone Marquez Freed MD Primary Care Provider [phone] Reason for Visit * Reason Onset Date Comments Letter for School/Work 09/12/2013 Encounter Details Date Type Department Care Team (Late st Contact Info) Description 09/12/2013 Telephone [place] [id number] Otis Pritchard MD [facility] [place] [address] Letter for School/Work Social History Tobacco Use Types Packs/Day Years [...] encounter Miscellaneous Notes * Telephone Encounter - Julita Adames - 09/12/2013 12:46 PM EST Asked patient to speak to our worker's comp department, gave him that phone number and connected him to worker's comp. * Telephone Encounter - Lizabeth Strickland - 09/12/2013 10:14 AM EST Patient calls and wants to know if he can get an out of work note because they have cut off his benefits. He hasn't been seen here since April and states that he has been going to therapy since then. I explained that he is overdue for a follow up and I cannot guarantee that we can do an out of work note based on the fact that his last visit here was on 04/20/13. He says that he has had a permanency rating through [facility]. I will fax a request for those records. Pleasecall the patient back either way as to whether we can send him a note to his home address or if theprovider wants him to come back first. His phone number is [phone]. documented in this encounter Plan of Treatment Not on file documented as of this encounter Visit Diagnoses Not on filedocumented in this encounter Care Teams Band Salvager Relationship Specialty Start Date End Date Marquez Freed MD [address] [place] [address] PCP - General 10/07/10 documented as of this encounter
--- OUTSIDE RECORDS SUMMARY | 2024-04-28 18:48 | XMS_ITS | Encounter Summary ---
Author Organization [facility] Address [facility] [place] [address] Care Team Providers Care Director Of Environmental Services Name Role Phone Marquez Freed MD Primary Care Provider [phone] Encounter Details Date Type Department Care Team (Late st Contact Info) Description 09/10/2011 9:20 AM EST Anesthesia Event [place] [address] [facility] [place] [address] [facility] [place] [address] Anesthesia Record Procedure Summary Procedure Name Responsible Anesthesiologist Anesthesia Start Time Anesthesia Stop Time CLAVICULECTOMY, PARTIAL (WRVU 7.39) (Left: Chest) David Chase MD 09/10/11 0920 09/10/11 1212 Events Date Time Event Comment 09/10/2011 0829 0920 Start 1212 Stop Meds * Agents No agents on file. * Blood No blood administrations on file. Lines, Drains, and Airways Type Details Placement Removal Incision shoulder; 05/04/22 (LDA cleanup utility RA#[id number]); 1715 (LDA cleanup utility RA#[id number]) 03/24/11 0815 by 05/04/22 1715 by Natanael Dhillon (RETIRED) Peripheral IV Line - Single Lumen 09/10/11; 0756; 03/16/12; 0658 09/10/11 0756 by Aurea Cuenca RN 03/16/12 0658 by Emma Campbell LNA Incision shoulder; 05/04/22 (LDA cleanup utility RA#[id number]); 1715 (LDA cleanup utility RA#[id number]) 09/10/11 0817 by 05/04/22 1715 by Natanael Dhillon documented in [...] OR Notes * Anesthesia Postprocedure Evaluation - David Chase MD - 09/10/2011 2:49 PM EST Patient: Dale Colorado Procedure(s) Performed: CLAVICULECTOMY, PARTIAL - 45074,[id number]; ARTHROSCOPY SHOULDER DEBRIDEMENT EXTENSIVE; ARTHROSCOPY SHOULDER, SUBACROMIAL DECOMPRESSION; [facility] Patient location: PACU Post-op pain: Adequate analgesia Post-op nausea: no nausea or vomiting Last Vitals: Filed Vitals: 09/10/11 1243 BP: 131/93 Pulse: 73 Temp: Resp: 18 Post-op cardiovascular and respiratory status: is stable Level of consciousness: awake Complications: no apparent complications Fluid Status: normal * Anesthesia Procedure Notes - David Chase MD - 09/10/2011 9:06 AM EST Associated Order(s): ANESTHESIA BLOCK Procedure Block: interscalene nerve block Indication/Prep Prep: chlorhexidine Laterality: left Ultrasound Guidance: live and in-planeInjection Injection technique:single-shot Needle Length: 5 cm Gauge: 22 Needle Type: [id number] Medication injection made incrementally with aspirations. Nerve infiltration solution through a needle Ropivicaine 0.5% 25 mL Motor Weakness The exam: Complete sensory; Complete motor The exam: Complete sensory; Complete motor Performed by forrest Godinez for post op pain control * Anesthesia Preprocedure Evaluation - David Chase MD - 09/10/2011 8:28 AM EST Anesthesia Evaluation Patient summary reviewed and Nursing notes reviewed Airway Mallampati: II TM distance: >3 FB Neck ROM: full Dental Pulmonary Cardiovascular - negative ROS and normal exam Neuro/Psych (+) neuromuscular disease, GI/Hepatic/Renal Endo/Other Abdominal Anesthesia Plan ASA 2 General and regional with intravenous induction Anesthetic plan and risks discussed with patient. documented in this encounter Miscellaneous Notes * Addendum Note - David Chase MD - 12/25/2011 3:43 PM EDT Addendum created 12/25/11 1543 by David Chase MD Modules edited:Anesthesia Blocks and Procedures, Inpatient Notes * Addendum Note - David Chase MD - 12/25/2011 3:40 PM EDT * Addendum Note - Emma Johnson - 09/11/2011 10:23 AM EST Addendum created 09/11/11 1023 by Emma Johnson Modules edited:Anesthesia Events, Anesthesia Responsible Staff documented in this encounter Plan of Treatment Not on file documented as of this encounter Visit Diagnoses Not on filedocumented in this encounter Care Teams Director Of Environmental Services Relationship Specialty Start Date End Date Marquez Freed MD [address] [address] PCP - General 10/07/10 documented as of this encounter
--- OUTSIDE RECORDS SUMMARY | 2024-04-28 18:48 | XMS_ITS | Encounter Summary ---
Author Organization [facility] Address [facility] [place] [address] Care Team Providers Care Hat Trimmer Name Role Phone Marquez Freed MD Primary Care Provider [phone] Encounter Details Date Type Department Care Team (Late st Contact Info) Description 04/20/2013 4:15 PM EDT [place] [address] [facility] [place] [address] Lateral epicondylitis (Primary Dx) Discharge Disposition: Home Social History [...] Reading Time Taken Comments Blood Pressure 152/102 04/20/2013 4:12 PM EDT Pulse 57 04/20/2013 4:12 PM EDT Temperature 36.6 ??C (97.8 ??F) 04/20/2013 4:12 PM ED T Respiratory Rate - - Oxygen Saturation 98% 04/20/2013 4:12 PM EDT Inhaled Oxygen Concentration - - Weight 96.5 kg (212 lb 12.8 oz) 04/20/2013 4:12 PM EDT Height 170.2 cm (5' 7) 04/20/2013 4:12 PM EDT Body Mass Index 33.33 04/20/2013 4:12 PM EDT documented in this encounter Progress Notes * Odalis Stewart DO - 04/20/2013 5:00 PM EDT MUSCULOSKELETAL ULTRASOUND REPORT EXAM: bilateral Elbows Date of service: 04/20/2013 Indication for Exam:b/l elbow pain B-mode ultrasound is performed utilizing an 8-18 mHz linear probe. Static real- time views in longitudinal (long axis) and transverse (short axis) orientation were obtained in this 42 y.o. year old male. Images are available on the Rheumatology USB Archive. Lateral views Long axis - abnormal insertion of the common extensor tendon at the lateral humeral epicondyle. Power Doppler Images: (+) for hypervascularity (inflammation) IMPRESSION:bilateral lateral epicondylitis I will ask her PT - Elizabeth Catherine to assist with treatment documented in this encounter Miscellaneous Notes * Miscellaneous - Provider, Scanning - 04/27/2013 10:33 AM EDT documented in this encounter Plan of Treatment Not on file documented as of this encounter Visit Diagnoses Diagnosis Lateral epicondylitis- Primary Lateral epicondylitis of elbow documented in this encounter Care Teams Hat Trimmer Relationship Specialty Start Date End Date Marquez Freed MD [address] [address] PCP - General 10/07/10 documented as of this encounter
--- OUTSIDE RECORDS SUMMARY | 2024-04-28 18:48 | XMS_ITS | Encounter Summary ---
Author Organization [facility] Address [facility] [place] [address] Care Team Providers Care Fashion Styling Intern Name Role Phone Marquez Freed MD Primary Care Provider [phone] Reason for Visit * Reason Comments Left Hand Pain L CTR, dos 03/16/12, ? infection Encounter Details Date Type Department Care Team (Late st Contact Info) Description 04/06/2012 4:40 PM EDT Follow-[place] [address] Liss Santizo PA [facility] [place] [address] Bilateral carpal tunnel syndrome (Primary Dx) Discharge [...] Sign Reading Time Taken Comments Blood Pressure 154/109 04/06/2012 3:25 PM EDT Pulse 78 04/06/2012 3:25 PM EDT Temperature 36.6 ??C (97.9 ??F) 04/06/2012 3:25 PM ED T Respiratory Rate 28 04/06/2012 3:25 PM EDT Oxygen Saturation - - Inhaled Oxygen Concentration - - Weight 94.3 kg (208 lb) 04/06/2012 3:25 PM EDT Height 170.2 cm (5' 7) 04/06/2012 3:25 PM EDT Body Mass Index 32.58 04/06/2012 3:25 PM EDT documented in this encounter Progress Notes * Liss Santizo PA - 04/06/2012 4:05 PM EDT PATIENT NAME: Dale Colorado AGE: 41 y.o. MR#: [id number] DATE OF VISIT: 04/06/2012 DATE OF SURGERY: 03/16/2012 SURGERY DESCRIPTION: 1. Left carpal tunnel release (96115) 2. Left flexor tenosynovectomy SURGEON: Dr. Pritchard STAFF: Dr. Pritchard CHIEF COMPLAINT: 3 weeks S/P above procedure HISTORY OF PRESENT ILLNESS: Mr. Colorado is a 41 y.o. year old male who presents 3 weeks s/p the aboveprocedures for office follow up. He presented about a week ago for suture removal and noticed that the incision was starting to open after suture removal. Steri-strips were applied and he was instructed to keep the incision clean. Since that visit, he noted that a suture remained in the incision and he noticed some drainage coming from the incision as well. Mr. Colorado denies any fever/chills or other constitutional signs of infection. He presents today for further evaluation. PHYSICAL EXAMINATION: Mr. Colorado a 41 y.o. male is alert and oriented. He appears in no acute discomfort and is resting comfortably in a chair in the exam room. Inspection: Palmar surgical incision that has opened superficially. Retained suture at the most distal end of the incision in the palm. Hand itself is swollen and warm to touch, but no significant erythema or purulent drainage is noted. ROM/Strength: Finger ROM full with intact FDS, FDP, EPL, FPL. No intrinsic hand weakness. Neurovascular: Fingers are sensate with good distal perfusion ASSESSMENT: 3 weeks s/p above procedures, superficial skin infection, retained suture PLAN: There is a retained suture which may be causing some skin irritation. The suture was removed and Steri-strips were reapplied. He was started on a course of Keflex 500 mg BID for the next ten days. He is already scheduled for follow up with Mitch Albert in 10 days. He was instructed to call us with any worsening drainage, erythema, discomfort, or constitutional symptoms such as fever or chills. All of the patients questions and concerns were answered at this visit. The patient understands to contact me if they have any other questions or concerns. documented in this encounter Plan of Treatment Not on file documented as of this encounter Visit Diagnoses Diagnosis Bilateral carpal tunnel syndrome- Primary Carpal tunnel syndrome documented in this encounter Care Teams Fashion Styling Intern Relationship Specialty Start Date End Date Marquez Freed MD [address] [place] [address] PCP - General 10/07/10 documented as of this encounter
--- OUTSIDE RECORDS SUMMARY | 2024-04-28 18:48 | XMS_ITS | Encounter Summary ---
Author Organization [place] [address] Care Team Providers Care Visual Basic Developer Name Role Phone Marquez Freed MD Primary Care Provider [phone] Encounter Details Date Type Department Care Team (Latest Contact Info) Description 09/10/2011 7:20 AM EST - 09/10/2011 1:00 PM EST Hospital Encounter Outpatient [place] [address] Sofie Pritchard MD [facility] [place] [address] Discharge Disposition: Home Social History Tobacco Use [...] Sign Reading Time Taken Comments Blood Pressure 131/93 09/10/2011 12:43 PM EST Pulse 73 09/10/2011 12:43 PM EST Temperature 36.7 ??C (98.1 ??F) 09/10/2011 1 2:05 PM EST Respiratory Rate 18 09/10/2011 12:4 3 PM EST Oxygen Saturation 93% 09/10/2011 12: 43 PM EST Inhaled Oxygen Concentration - - [...] after hours and ask for the anesthesiologist recreation leader. Narcotic pain medications can cause constipation, please [...] and vegetables as well as fruit juices. [facility] 8:00-5:30 [facility] 29/03 ask for your doctor recreation leader * Patient Instructions* Delano Calle - 09/10/2011 12:09 PM EST Same Day Surgery Post Operative Orders and Discharge Instructions For Subacromial Decompression. Dale Colorado [id number] 05/18/2011 Diagnosis: Status Post Left Shoulder Arthroscopy [...] are on them. You can try an sadg-htn-perrqoo medication, miralax if needed. Please contact us if you develop fevers, chills, night sweats, nausea, vomiting, wound discharge, numbness, tingling, increased pain, pain with passive or active extension of fingers in the affected extremity, or other questions or concerns. Follow up with JOSSELINE Reed, in the Orthopaedic Department 3A, on 09/24/2011 at 11:00AM in [id number] as previously scheduled. Please bring your surgical [...] DICTATION: 09/10/2011 SURGEON ORTHOPEDIC: SOFIE PRITCHARD M.D. JUDO INSTRUCTOR: DELANO CALLE M.D. PREOPERATIVE DIAGNOSES: 1. Left [...] shoulder open distal clavicle resection (1 cm) (83669). 2. Left shoulder arthroscopy with extensive debridement (79212). 3. Left arthroscopic bursectomy and acromioplasty (20306). 1. 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 He is approximately [...] where a time-out was performed as per [facility] protocol. He was then placed under general [...] solution. The deltotrapezial fascia was approximated with [id number] sutures of #2 Ethibond. Subcutaneous tissue was [...] 09/11/2011 4:55 PM EST MODIFIER BEACH CHAIR DION 09/10/2011 9:16 AM EST rc tear ARTHROSCOPY [...] Date Dose Rate Site lactated ringers infusion 1,000 mL 1,000 [...] 09/10/2011 8:40 AM EST 2 mg mL/hr documented in this encounter Active and [...] Roz 09/10/11 at 1522, Intra-Operative (Intra-Procedure), Routine 1019 (Given - Provid er: Sofie Pritchard MD) epiNEPHrine (ADRENALIN) injection (CANCELED) ONCE PRN, Starting on Roz 09/10/11 at 1020, Until Roz 09/10/11 at 1522, Intra-Operative (Intra-Procedure), Routine 1020 (Given [...] MD) documented in this encounter Care Teams Visual Basic Developer Relationship Specialty Start Date End Date Marquez Freed MD [address] [place] [address] PCP - General 10/07/10 documented as of this encounter
--- OUTSIDE RECORDS SUMMARY | 2024-04-28 18:48 | XMS_ITS | Encounter Summary ---
Author Organization [facility] [place] [address] Care Team Providers Care Hvac Designer Name Role Phone Marquez Freed MD Primary Care Provider [phone] Reason for Referral * Physical Therapy (Routine) - Complete - Patient Will Schedule External Appt Specialty Diagnoses / Procedures Referred By Faustino connors Referred To Contact Physical Therapy Diagnoses Carpal tunnel syndrome, bilateral [facility] [address] [place] [address] Referral ID Status Reason Start Date Expiration Date Visits Requested Visits Authorized [id number] Complete - Patient Will Schedule External Appt Evaluate and Treat 2 12/31/2012 1 1 Encounter Details Date Type Department Care Team (Late st Contact Info) Description 07/04/2012 Orders [place] [address] Vivian Haskins RN Carpal tunnel syndrome, bilateral (Primary Dx) Social History Tobacco Use Types [...] Associated Diagnoses Orde r Schedule Referral to Physical Therapy Outpatient Referral Routine Carpal tunnel syndrome, bilateral Ordered: 07/04/2012 documented as of this encounter Visit Diagnoses Diagnosis Carpal tunnel syndrome, bilateral- Primary Carpal tunnel syndrome documented in this encounter Care Teams Hvac Designer Relationship Specialty Start Date End Date Marquez Freed MD [address] [place] [address] PCP - General 10/07/10 documented as of this encounter
--- OUTSIDE RECORDS SUMMARY | 2024-04-28 18:48 | XMS_ITS | Encounter Summary ---
Author Organization [facility] [place] [address] Care Team Providers Care Escort Patients Name Role Phone Marquez Freed MD Primary Care Provider Reason for Visit * Reason Onset Date Comments Other 08/04/2012 Encounter Details Date Type Department Care Team (Late st Contact Info) Description 08/04/2012 [place] [address] Keiry Go Other Social History Tobacco Use Types Packs/Day Years [...] Telephone Encounter - Velia Costello MSW - 08/04/2012 1:18 PM EST [employer] [place] [employer] CONTINUING CAST SHELL GRINDERbackup engineer for FCE faxed to Soledad Hameed [facility]. documented in this encounter Plan of Treatment Not on file documented as of this encounter Visit Diagnoses Not on filedocumented in this encounter Care Teams Escort Patients Relationship Specialty Start Date End Date Marquez Freed MD [address] [place] [address] PCP - General 10/07/10 documented as of this encounter
--- OUTSIDE RECORDS SUMMARY | 2024-04-28 18:48 | XMS_ITS | Encounter Summary ---
Author Organization [facility] Address [facility] [place] [address] Care Team Providers Care Cabin Outfitter Name Role Phone Marquez Freed MD Primary Care Provider [phone] Encounter Details Date Type Department Care Team (Latest Contact Info) Description 04/06/2013 11:55 AM EDT - 04/06/2013 3:44 PM EDT Hospital Encounter [place] [address] RESOURCE, ANESTHESIA-MAREKVera Koehler MD [facility] [place] [address] Discharge Disposition: Home Social History Tobacco Use [...] Sign Reading Time Taken Comments Blood Pressure 125/83 04/06/2013 3:30 PM EDT Pulse 51 04/06/2013 3:30 PM EDT Temperature 36 ??C (96.8 ??F) 04/06/2013 3:00 PM EDT Respiratory Rate 16 04/06/2013 3:20 PM EDT Oxygen Saturation 99% 04/06/2013 3:30 PM EDT Inhaled Oxygen Concentration - - Weight 93.9 kg (207 lb) 04/06/2013 12:21 PM EDT Height 170.2 cm (5' 7) 04/06/2013 12:21 PM EDT Body Mass Index 32.42 04/06/2013 12:21 PM EDT documented in this encounter Discharge Instructions * Discharge Instructions* Allison Jackson RN - 04/06/2013 3:17 PM EDT POST ANESTHESIA INSTRUCTIONS Go home, rest, use [...] needed. 10/19/2017 documented as of this encounter Progress Notes * Allison Jackson RN - 04/06/2013 3:39 PM EDT REviewed discharge instructions with pt and Natalya. Pt up to get dressed independently. REady for discharge home. documented in this encounter Miscellaneous Notes * Miscellaneous - Provider, Scanning - 04/14/2013 10:24 AM EDT * Miscellaneous - Provider, Scanning - 04/06/2013 4:46 PM EDT documented in this encounter Plan of Treatment Not on file documented as of this encounter Procedures Procedure Name Priority Date/Time Associated Diagnosis Comments MRI WITH ANESTHESIA (WRVU *) 04/06/2013 9:05 PM EDT hand pain evidence of inflammatory arthritis documented in this encounter Visit Diagnoses Not on filedocumented in this encounter Care Teams Cabin Outfitter Relationship Specialty Start Date End Date Marquez Freed MD [address] [place] [address] PCP - General 10/07/10 documented as of this encounter
--- OUTSIDE RECORDS SUMMARY | 2024-04-28 18:48 | XMS_ITS | Encounter Summary ---
Author Organization [facility] Address [facility] [place] [address] Care Team Providers Care Cocoa Powder Mixer Operator Name Role Phone Marquez Freed MD Primary Care Provider [phone] Reason for Referral * Physical Therapy (Routine) - Complete - Patient Will Schedule External Appt Specialty Diagnoses / Procedures Referred By Faustino connors Referred To Contact Physical Therapy Diagnoses S/P carpal tunnel release Otis Pritchard MD [facility] [place] [address] Referral ID Status Reason Start Date Expiration Date Visits Requested Visits Authorized [id number] Complete - Patient Will Schedule External Appt Evaluate and Treat 08/08/2012 02/04/2013 1 1 Encounter Details Date Type Department Care Team (Late st Contact Info) Description 08/08/2012 Orders [place] [address] Otis Pritchard MD [facility] [place] [address] S/P carpal tunnel release (Primary Dx) Social History Tobacco Use Types [...] Referral to Physical Therapy Outpatient Referral Routine S/P carpal tunnel release Ordered: 08/08/2012 documented as of this encounter Visit Diagnoses Diagnosis S/P carpal tunnel release- Primary Other postprocedural status documented in this encounter Care Teams Cocoa Powder Mixer Operator Relationship Specialty Start Date End Date Marquez Freed MD [address] [address] PCP - General 10/07/10 documented as of this encounter
--- OUTSIDE RECORDS SUMMARY | 2024-04-28 18:48 | XMS_ITS | Encounter Summary ---
Author Organization [facility] Address [facility] [place] [address] Care Team Providers Care Package Dye Stand Loader Name Role Phone Marquez Freed MD Primary Care Provider [phone] Reason for Visit * Reason Onset Date Comments Medication Refill 02/12/2012 Encounter Details Date Type Department Care Team (Late st Contact Info) Description 02/12/2012 Telephone [place] [address] Mandeep Briscoe PA [facility] [address] ORTHOPAEDIC [place] [address] Medication Refill Social History Tobacco Use Types Packs/Day Years Used Date Smoking Tobacco: Never Alcohol Use Standard Drinks/Week Comments Yes 63 (1 standard drink = 0.6 oz pu re alcohol) Sex and Gender Information Value Date Recorded Sex Assigned at Not on file Gender Identity Not on file Sexual Orientation Not on file documented as of this encounter Miscellaneous Notes * Telephone Encounter - Vivian Haskins RN - 02/12/2012 10:45 AM EDT Patient of Dr. Pritchard Patient calls requesting his Motrin and Protonix scripts [facility] Done documented in this encounter Plan of Treatment Not on file documented as of this encounter Visit Diagnoses Diagnosis Pain Generalized pain GI disease Unspecified disorder of intestine documented in this encounter Care Teams Package Dye Stand Loader Relationship Specialty Start Date End Date Marquez Freed MD [address] [address] PCP - General 10/07/10 documented as of this encounter
--- OUTSIDE RECORDS SUMMARY | 2024-04-28 18:48 | XMS_ITS | Encounter Summary ---
Author Organization [facility] [place] [place] [address] Care Team Providers Care Emergency Management Program Specialist Name Role Phone Marquez Freed MD Primary Care Provider Encounter Details Date Type Department Care Team (Late st Contact Info) Description 06/23/2012 2:05 PM EDT Office Visit [place]ational [place] [address] Berny Nuñez, OT [facility] PHYSICAL MEDICINE & [place] [address] Marquez Freed MD [address] [place] [id number] Bilateral carpal tunnel syndrome (Primary Dx) Discharge [...] as of this encounter Progress Notes * Berny Nuñez, OT - 06/23/2012 4:39 PM EDT OCCUPATIONAL THERAPY SPLINTING EVALUATION REFERRAL SOURCE: Otis Pritchard MD DIAGNOSIS: 1. Bilateral carpal tunnel syndrome (354.0U) DATE OF INJURY: Past year DATE OF SURGERY: 06/08/12 NEXT MD FOLLOW UP: 08/01/12 TOTAL TREATMENT TIME: 24 Minutes TIMED CODE TREATMENT TIME: Orthotic management and training 24 minutes CURRENT HISTORY: Dale Colorado is a 41 y.o. year old male who presents today [address] release of his right hand. Dael Colorado was seen by Dr. Samuels for recheck and referred to Occupational Therapy for evaluation and treatment to include splinting. Patient presents today accompanied by . Mechanism of Injury: Patient's symptoms come from CT release. 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 nicole HAND DOMINANCE: Right PAIN: At Rest: 1/10 With Activity: 2/10 FUNCTIONAL LIMITATIONS: Dale Colorado identifies difficulty with the following functional activities using the Patient Specific Functional Scale (PSFS): 0/10 (unable to perform) to 10/10 (Able to perform without difficulty) Activity At Evaluation 1.) sleep 8 2.) dressing and bathing 5 3.) writing 1 TREATMENT TODAY: Fabricated a volar wrist cockup splint to be worn at all times except for hygiene. ASSESSMENT: Dale Colorado presents today with functional limitations due to swelling and stiffness post CT release. Patient has a well fitting splint post therapy. Dale Colorado has good potential for gains with therapy and has a visit scheduled on Wednesday to see therapy closer to home. Patient knows to call with any questions or concerns. Short Term Goals (to be met by end of the visit today): Date Goal Met: 2. Dale Colorado will demonstrate independence with donning and doffing of splint and verbalizationof splinting purpose. Goal Status: Goal met PLAN: He will be seen PRN for splint adjustment (X) Dale Colorado participated in the evaluation, collaborated on treatment goals, and agrees to the treatment plan . documented in this encounter Plan of Treatment Not on file documented as of this encounter Visit Diagnoses Diagnosis Bilateral carpal tunnel syndrome- Primary Carpal tunnel syndrome documented in this encounter Care Teams Emergency Management Program Specialist Relationship Specialty Start Date End Date Marquez Freed MD [address] [place] [id number] PCP - General 10/07/10 documented as of this encounter
--- OUTSIDE RECORDS SUMMARY | 2024-04-28 18:48 | XMS_ITS | Encounter Summary ---
Author Organization [facility] Address [facility] [place] [address] Care Team Providers Care Title Abstractor Name Role Phone Marquez Freed MD Primary Care Provider [phone] Reason for Referral * Physical Therapy (Routine) - Complete - Patient Will Schedule External Appt Specialty Diagnoses / Procedures Referred By Faustino t Referred To Contact Physical Therapy Diagnoses Follow-up examination following surgery [facility] [address] [place] [address] Referral ID Status Reason Start Date Expiration Date Visits Requested Visits Authorized [id number] Complete - Patient Will Schedule External Appt Evaluate and Treat 09/24/2011 03/22/2012 1 1 Reason for Visit * Reason Comments Left Shoulder Pain L shldr scope doi Encounter Details Date Type Department Care Team (Late st Contact Info) Description 09/24/2011 11:00 AM EST Office [place] [address] Mitch Albert PA [facility] DR ORTHOPAEDIC SURGERY [place] [id number] Follow-up examination following surgery, right shoulder arhtroscopy (Primary Dx) Discharge Disposition: Home Social History [...] Progress Notes * Mitch Albert PA - 09/24/2011 11:11 AM EST Dale underwent left shoulder arthroscopy by Dr. Pritchard on 09/10/2011. He is doing quite well. He denies fevers, chills, nausea, vomiting, numbness, or tingling. This surgery involved debridement, acromioplasty, and distal clavicle excision. He tolerated all that quite well. His pain is well controlled with Advil and the occasional oxycodone. His dressing is down. His incisions are healing beautifully without complication or infection. No evidence of erythema, edema, or ecchymosis. No bogginess, fluctuance, or drainage is noted. He is completely sensate to light touch to the entire left upper extremity. This examination is symmetrical to the right upper extremity. ASSESSMENT: He is now two weeks status post left shoulder arthroscopy, doing well. PLAN: Plan is to begin therapy per debridement protocol. Follow up in one month with Dr. Pritchard. He already has this appointment scheduled apparently. We will see him on an as-needed basis prior to that and then we will advance his use of the shoulder at that point. He understands that he can come out of his sling now, but should avoid heavy use of the arm, low weightbearing, and keep it protected. If he has any questions, he will contact us. documented in this encounter Plan of Treatment Scheduled Referrals Name Type Priority Associated Diagnoses Orde r Schedule REFERRAL TO PHYSICAL THERAPY Outpatient Referral Routine Follow-up examination following surgery, right shoulder arhtroscopy Ordered: 09/24/2011 documented as of this encounter Visit Diagnoses Diagnosis Follow-up examination following surgery, right shoulder arhtroscopy- Primary Follow-up examination, following unspecified surgery documented in this encounter Care Teams Title Abstractor Relationship Specialty Start Date End Date Marquez rFeed MD [address] [address] PCP - General 10/07/10 documented as of this encounter
--- OUTSIDE RECORDS SUMMARY | 2024-04-28 18:48 | XMS_ITS | Encounter Summary ---
Author Organization [facility] [place] [address] Care Team Providers Care Nurse Chemical Dependency Name Role Phone Marquez Freed MD Primary Care Provider [phone] Reason for Visit * Reason Comments Advice Only new pt work up Encounter Details Date Type Department Care Team (Late st Contact Info) Description 03/17/2013 11:15 AM EDT Office Visit [place] [address] [facility] [place] [address] Hand pain (Primary Dx) Discharge Disposition: Home Social [...] Sign Reading Time Taken Comments Blood Pressure 133/74 03/17/2013 11:27 AM EDT Pulse 61 03/17/2013 11:27 AM EDT Temperature 36.6 ??C (97.8 ??F) 03/17/2013 11:27 AM E DT Respiratory Rate - - Oxygen Saturation 98% 03/17/2013 11:27 AM EDT Inhaled Oxygen Concentration - - Weight 93.7 kg (206 lb 9.6 oz) 03/17/2013 11:27 AM EDT Height 170.2 cm (5' 7) 03/17/2013 11:27 AM EDT Body Mass Index 32.36 03/17/2013 11:27 AM EDT documented in this encounter Patient Instructions * Patient Instructions* Fam Batsheva B, ABEL - 03/17/2013 11:32 AM EDT Welcome to [employer], your secure online access to your electronic medical record at [facility]. Using [employer] you will be able to send messages to your providers, view your test results, renew prescriptions, schedule appointments, and much more. Follow these instructions to enter your personal [employer] account for the first time: 1. Start your internet browser and type [email or web address] into the address bar. 2. In the New User box on the right-hand side of the Welcome page click the link that states, ???I have an activation code.?? 3. On the Identification page, follow these steps: a) Enter your [employer] activation code: Not generated b) Current myD-H Status: Active IMPORTANT: This Activation Code will on the above mentioned date. If you do not sign up for [employer] by this date, you will need to request another activation code. c) Enter your date of , using the calendar tool provided. d) Enter your Zip code. e) Select ???submit?? to go to the next page. 4. On the Create Account page, follow these steps: a) Create a [employer] username. This can???t be changed, so choose one you won???t forget. b) Create a password that???s at least six characters long, and that contains at least two numbers.Your password can be changed at any time. Confirm your password by entering it once more. c) Enter your email address. This will be used to alert you to new information. Confirm your email address by entering it once more. d) Enter your security question. This will be used if you forget your password. e) Enter your security answer. Confirm your security answer by entering it once more. f) Select ???submit?? to view your electronic medical record. If you have any questions about [employer] or your Access Code, please call for [place], for [place] or for [place]. If you need technical support, please e-mail [email or web address]. Remember, [employer] is NOT for urgent needs! Always dial 911 for medical emergencies. documented in this encounter Progress Notes * Odalis Stewart DO - 03/17/2013 11:35 AM EDT Outpatient Rheumatology Consult CC: Asked by Otis Pritchard to evaluate this patient with b/l hand pain HPI: 42 yo nicole here for evaluation of above. Has not been able to work for the past 2 years due to b/l hand pain. He was noted to have b/l CTS and had surgery on both. This relieved the numbness and tingling in his hands at first but then it cam back. He recently had NCS which showed that it has recurred on both sides. In the morning his hands are numb, stiff and achy. Takes 5-10 minutes for the tingling to go away. Does not take tylenol or ibuprofen b/c of fatty liver. Trying to use wrist braces at night but findsthe rigid ones too hard. He has not yet gotten the softer ones recommended by Dr. Pritchard. Besides his shoulders, his other joints don't really bother him. He does get hHeel pain when walking barefoot so he tried not to do that. He has never noticed joint swelling. He has a difficult time opening jars and trouble with dexterity. PMH: fatty liver disease, HTN, hyperlipidemia, depression, GERD, BL CTR, b/l shoulder surgery Social Hx: , drinks 60 beers per week. Was not drinking nearly as much when he was working. No tobacco Family Hx: no autoimmune disease Ros: per patient history form Physical Exam: Gen: Patient is awake, alert and oriented x 3, in no distress, his is with him Skin: warm and dry, no rheumatologic rashes Lymph: no cervical or submandibular adenopathy Thyroid: no nodules or thyromegaly Mouth: moist mucous membranes, no oral ulcers Eyes: normal sclerae Joints: decreased clay carman strength in his hands, several MCPs and PIPs were tender today but I did notappreciate any synovitis. His left wrist was tender but not swollen. Both knees, ankles and feet are non tender, not warm or swollen. Assessment and Plan: 1. Bilateral hand pain We reviewed his hand xrays. He has minimal OA changes. There are no neuropathic type symptoms and no synovitis that I could see on exam. I doubt this is inflammatory arthritis but I also don't have agood explanation for his pain. I do think it would be safe to do an empiric trial of NSAIDs but he is concerned about his liver. We talked about the fact that he needs to cut back on his alcohol consumption. I am going to check RF, CCP and get an MRI of both hands. documented in this encounter Miscellaneous Notes * Miscellaneous - Provider, Scanning - 03/21/2013 9:39 AM EDT * Miscellaneous - Provider, Scanning - 03/21/2013 9:39 AM EDT documented in this encounter Plan of Treatment Not on file documented as of this encounter Procedures Procedure Name Priority Date/Time Associated Diagnosis Comments MRI HAND WITH/WO CONTRAST Routine 04/06/2013 2:55 PM EDT Hand pain ANTI-CYCLIC CITRULLINATED PEPTIDE AB Routine 03/17/2013 12:33 PM EDT Hand pain RHEUMATOID FACTOR, QUANT Routine 03/17/2013 12:33 PM EDT Hand pain documented in this encounter Results * MRI hand with/WO contrast (04/06/2013 2:55 PM EDT) Anatomical Region Laterality Modality Hand Magnetic Resonan ce 04/06/2013 2:55 PM EDT Narrative 04/06/2013 3:29 PM EDT Examination MR HAND WITH/WITHOUT GD/LEFT/ANES Clinical History bilateral hand pain looking for evidence of inflammatory arthritis Comparison X-ray 02/09/2013. Technique MRI of the left hand performed with contrast. ??Initially this study was sent to be performed as a bilateral examination. ??There was however extensive artifact related to metal in the soft tissues of the right hand. ??Because the patient was sedated and unable to report possible feeding related to the presence of metal we scanned only the left hand, placing the right Hand at the patient's site weight fully from the magnet wall. The study includes T1 weighted and T2 weighted images. ??Fat suppressed T1 weighted images were acquired prior to and following the intravenous administration of 20 mL of Magnevist. Findings The fat suppression at the wrist is not uniform and there is an appearance of increased signal intensity on T2 weighted images which is simply artifactual and should not be confused with soft tissue inflammation. Allowing for the artifact there is a small amount of fluid surrounding the extensor carpi ulnaris tendon suggestive of a mild degree of tenosynovial inflammation. ??No underlying erosion is identified and the tendon is normal in appearance. ??No large effusion is seen at the wrist. ??The tendons within the carpal tunnel are normal in appearance. ??No abnormality is seen at the level of the carpal bones. Small amounts of fluid are present within the metacarpophalangeal joints. ??No synovitis is identified. ??There is a well defined bone defect in the radial aspect of the index metacarpal head. ??This could represent an erosion but the tubular contour and the location is more characteristic of a subchondral cyst. At the interphalangeal joints no effusions are identified. ??No erosions are identified. ??The extensor and flexor tendons of the fingers are normal in appearance. Impression ? 1. The study is limited to the left Hand due to the presence of a metallic foreign body in the right hand and the safety concerns of scanning soft tissue metal in a patient while sedated. ? 2. A solitary bony defect is present. ??Its location and appearance is most consistent with a subchondral cyst at the index metacarpal head. ??I do not see definite erosive disease. ? 3. Other than a minimal degree of inflammation surrounding the extensor carpi ulnaris tendon no inflammatory changes are identified. Procedure Note Gen Leiva MD - 04/06/2013 Examination MR HAND WITH/WITHOUT GD/LEFT/ANES Clinical History bilateral hand pain looking for evidence of inflammatory arthritis Comparison X-ray 02/09/2013. Technique MRI of the left hand performed with contrast. Initially this study wassent to be performed as a bilateral examination. There was however extensiveartifact related to metal in the soft tissues of the right hand. Because thepatient was sedated and unable to report possible feeding related to the presenceof metal we scanned only the left hand, placing the right Hand at thepatient's site weight fully from the magnet wall. The study includes T1 weighted and T2 weighted images. Fat suppressed T1 weighted images were acquired prior to and following the intravenous administration of 20 mL of Magnevist. Findings The fat suppression at the wrist is not uniform and there is an appearanceof increased signal intensity on T2 weighted images which is simplyartifactual and should not be confused with soft tissue inflammation. Allowing for the artifact there is a small amount of fluid surrounding the extensor carpi ulnaris tendon suggestive of a mild degree of tenosynovial inflammation. No underlying erosion is identified and the tendon isnormal in appearance. No large effusion is seen at the wrist. The tendons withinthe carpal tunnel are normal in appearance. No abnormality is seen at thelevel of the carpal bones. Small amounts of fluid are present within the metacarpophalangeal joints.No synovitis is identified. There is a well defined bone defect in theradial aspect of the index metacarpal head. This could represent an erosion butthe tubular contour and the location is more characteristic of a subchondralcyst. At the interphalangeal joints no effusions are identified. No erosionsare identified. The extensor and flexor tendons of the fingers are normal in appearance. Impression 1. The study is limited to the left Hand due to the presence of ametallic foreign body in the right hand and the safety concerns of scanning softtissue metal in a patient while sedated. 2. A solitary bony defect is present. Its location and appearance ismost consistent with a subchondral cyst at the index metacarpal head. I do notsee definite erosive disease. 3. Other than a minimal degree of inflammation surrounding theextensor carpi ulnaris tendon no inflammatory changes are identified. Odalis Stewart DO IMG MRI ORDERABL ES * Cyclic Citrullinated Peptide (03/17/2013 12:33 PM EDT) Cyclic Citrulline Peptide <2.0 <=5.0 u/ml CERNER MILLENNIUM Blood specimen (specimen) 03/17/2013 12:33 PM EDT 03/17/2013 2:11 PM EDT Narrative Resulting Agency Comment Spec In Lab Odalis Stewart DO CHEMISTRY ORDERA BLES CERNER xTVENNIUM * (ABNORMAL) Rheumatoid factor, quant (03/17/2013 12:33 PM EDT) Rheumatoid Factor 17(H) <=14 IU/mL CERNER MILLENNIUM Blood specimen (specimen) 03/17/2013 12:33 PM EDT 03/17/2013 12:39 PM EDT Narrative Resulting Agency Comment Spec In Lab Odalis Stewart DO CHEMISTRY ORDERA BLES ALEENA ÁLVAREZIUM documented in this encounter Visit Diagnoses Diagnosis Hand pain- Primary Pain in limb documented in this encounter Care Teams Nurse Chemical Dependency Relationship Specialty Start Date End Date Marquez Freed MD [address] [address] PCP - General 10/07/10 documented as of this encounter
--- OUTSIDE RECORDS SUMMARY | 2024-04-28 18:48 | XMS_ITS | Encounter Summary ---
[place] [address] Care Team Providers Care Licensed Social Worker Name Role Phone Marquez Freed MD Primary Care Provider [phone] Encounter Details Date Type Department Care Team (Late st Contact Info) Description 04/06/2013 1:05 PM EDT - 04/06/2013 3:33 [place] [id number] RESOURCE, ANESTHESIA-MAREK None MRI WITH ANESTHESIA (WRVU [...] on filedocumented in this encounter Care Teams Licensed Social Worker Relationship Specialty Start Date End Date Marquez Freed MD [address] [place] [id number] PCP - General 10/07/10 documented as of this encounter
--- OUTSIDE RECORDS SUMMARY | 2024-04-28 18:48 | XMS_ITS | Encounter Summary ---
Author Organization [facility] Address [facility] [place] [address] Care Team Providers Care Quarantine Officer Name Role Phone Marquze Freed MD Primary Care Provider [phone] Reason for Visit * Reason Comments Follow Up Surgery dos 1.5.12.. L shldr scope Encounter Details Date Type Department Care Team (Late st Contact Info) Description 10/29/2011 11:00 AM EST Follow-[place] [address] Otis Pritchard MD [facility] [place] [address] H/O: RCT (rotator cuff tear) (Primary Dx) Discharge Disposition: Home Social History [...] as of this encounter Progress Notes * Otis Pritchard MD - 10/29/2011 11:23 AM EST SUBJECTIVE: Mr. Colorado returns seven weeks status post a left shoulder arthroscopy and an open distal clavicle resection. He feels that things are going well. His range of motion is improving, but he is still significantly weak. OBJECTIVE: Examination today, neuro/musculoskeletal exam, his LEFT SHOULDER. His wounds are healing kindly. No evidence of infection. Distal neurovascular exam is intact. His total active elevation, however, is only 140 degrees, and his external rotation is only 30 degrees. PLAN: The patient needs to continue with vigorous therapy. Take anti-inflammatories p.r.n., and we will plan to see him back for a final check in six weeks or sooner p.r.n. documented in this encounter Plan of Treatment Not on file documented as of this encounter Visit Diagnoses Diagnosis H/O: RCT (rotator cuff tear)- Primary Personal history of other musculoskeletal disorders documented in this encounter Care Teams Quarantine Officer Relationship Specialty Start Date End Date Marquez Freed MD [address] [place] [address] PCP - General 10/07/10 documented as of this encounter
--- OUTSIDE RECORDS SUMMARY | 2024-04-28 18:49 | XMS_ITS | Encounter Summary ---
Author Organization [facility] [place] [address] Care Team Providers Care Lifter Driver Name Role Phone Marquez Freed MD Primary Care Provider [phone] Encounter Details Date Type Department Care Team (Late st Contact Info) Description 03/24/2011 7:25 AM EDT Anesthesia Event [place] [phone] [facility] [place] [address] [facility] [address] [place] [address] Anesthesia Record Procedure Summary Procedure Name Responsible Anesthesiologist Anesthesia Start Time Anesthesia Stop Time ARTHROSCOPY SHOULDER DEBRIDEMENT EXTENSIVE (WRVU 7.98) (Right: Shoulder) Gen Newton MD 03/24/11 0725 03/24/11 0953 Events Date Time Event Comment 03/24/2011 0702 0725 Start 0953 Stop Meds * Agents No agents on file. * Blood No blood administrations on file. Lines, Drains, and Airways Type Details Placement Removal (RETIRED) Peripheral IV Line - Single Lumen 03/24/11; 0632; 03/24/11; 1149 03/24/11 0632 by Aurea Cuenca RN 03/24/11 1149 by Aurea Cuenca RN Incision shoulder; 05/04/22 (LDA cleanup utility RA#[id number]); 1715 (LDA cleanup utility RA#[id number]) 03/24/11 0815 by 05/04/22 1715 by Natanael Dhillon documented [...] as of this encounter Progress Notes * Gen Newton MD - 03/24/2011 7:33 AM EDT Addendum to 03/24/11 Anesthesia Procedure Note Re: Right Interscalene nerve block on 03/24/11 Volume of injection: 30ml of 0.5% ropivacaine and 1 mg of dexamethasone PF documented in this encounter OR Notes * Anesthesia Postprocedure Evaluation - Gen Newton MD - 03/24/2011 2:03 PM EDT Patient: Dale Colorado Procedure(s) Performed: ARTHROSCOPY SHOULDER DEBRIDEMENT EXTENSIVE; ARTHROSCOPY SHOULDER, SUBACROMIAL DECOMPRESSION; CLAVICULECTOMY, PARTIAL Patient location: PACU Post-op pain: Adequate analgesia Post-op nausea: no nausea or vomiting Last Vitals: Filed Vitals: 03/24/11 1031 BP: 152/88 Pulse: 77 Temp: Resp: 20 Post-op cardiovascular and respiratory status: is stable Level of consciousness: awake Complications: no apparent complications Fluid Status: normal * Anesthesia Procedure Notes - Gen Newton MD - 03/24/2011 7:03 AM EDT Associated Order(s): ANESTHESIA BLOCK; ANESTHESIA BLOCK Procedure Block: Post-op Pain Control, interscalene nerve block Start time: 03/24/2011 7:03 AM This patient was greeted in the block room and the risks and benefits of the anesthetic block were reviewed. The risks of infection, bleeding, local anesthetic toxicity, and nerve injury were discussed. Specifically, the approximate risk of nerve injury (09/2999-09/4999) including neuropathy, loss of sensation and motor function, whether permanent or temporary, was discussed as well as the fact that post-surgical nerve injury can be unrelated to the actual injection and may be related to intra-operative issues such as positioning and tourniquet usage. The anesthetic consent was obtained. The timeout was performed prior to procedure start. Standard ASA monitors were applied. Indication/Prep Position: supine Prep: chlorhexidine Laterality: right Ultrasound Guidance: live and in-plane Skin Medication lidocaine 1% 1 ml Injection Injection technique:single-shot Needle Length: 5 cm Gauge: 22 Needle Type: D-mivby-bagsm Medication injection made incrementally with aspirations. Nerve infiltration solution through a needle Ropivicaine 0.5% and Other, see note Additional Notes PF dexamethasone 1.0mg Performed by Sanjay * Anesthesia Preprocedure Evaluation - Gen Netwon MD - 03/24/2011 6:26 AM EDT Anesthesia Evaluation Patient summary reviewed [...] to do >= 4 mets) (-) past AR, CAD, CABG/stent and dysrhythmias Rhythm: regular Rate: normal Neuro/Psych - negative ROS GI/Hepatic/Renal (+) GERD (GERD sx assoc. with NSAIDs, no issues at present now off NSAIDs, sx were controlled with PPI) well controlled, (-) hiatal hernia Endo/Other - negative ROS Abdominal Anesthesia Plan ASA 2 General and regional with intravenous induction We discussed risks and precautions regarding nerve block and general anesthesia in the presence of and daughter. All their questions were reviewed and answered to their satisfaction and he consents. Anesthetic plan and risks discussed with spouse, mother and patient. Use of blood products discussed with and consented by patient and spouse. Plan discussed with attending and resident. documented in this encounter Miscellaneous Notes * Addendum Note - Gen Newton MD - 03/31/2011 3:16 PM EDT Addendum created 03/31/11 1516 by Gen Newton MD Modules edited:IP Notes Section, Inpatient Notes * Addendum Note - Radha Torres - 03/25/2011 9:48 AM EDT Addendum created 03/25/11 0948 by Radha Torres Modules edited:Anesthesia Events, Anesthesia Responsible Staff documented in this encounter Plan of Treatment Not on file documented as of this encounter Visit Diagnoses Not on filedocumented in this encounter Care Teams Lifter Driver Relationship Specialty Start Date End Date Marquez Freed MD [address] [place] [id number] PCP - General 10/07/10 documented as of this encounter
--- OUTSIDE RECORDS SUMMARY | 2024-04-28 18:49 | XMS_ITS | Encounter Summary ---
Author Organization [facility] Address [facility] [place] [address] Care Team Providers Care Career Counselor Name Role Phone Marquez Freed MD Primary Care Provider [phone] Reason for Visit * Reason Comments Right Shoulder Pain Right shldr scope Pr e-op Encounter Details Date Type Department Care Team (Late st Contact Info) Description 03/05/2011 10:30 AM EDT [place] [address] Otis Pritchard MD [facility] DR [place] [address] Rotator cuff tear (Primary Dx) Social History Tobacco Use Types [...] - Inhaled Oxygen Concentration - - Weight 95.7 kg (211 lb) 03/05/2011 10:03 AM EDT Height 167.6 cm (5' 6) 03/05/2011 10:03 AM EDT Body Mass Index 34.06 03/05/2011 10:03 AM EDT documented in this encounter Progress Notes * Allison Koenig RN - 03/05/2011 1:41 PM EDT Pre op teaching done for right shoulder arthroscopy,probable rotator cuff repair,bicep tenotomy. DOS 03/24/11. Post op guidelines reviewed along with his and daughter. Pt Has good support systemsin place. He lives over 2 hours away. Pt knows to call with any additional questions or concerns. * Otis Pritchard MD - 03/05/2011 12:32 PM EDT Mr. Colorado returns for recheck of his RIGHT SHOULDER. He continues to have pain definitely exacerbated with things required of him at work. He has sustained no new trauma. Examination today, Neuro/Musculoskeletal Exam: His right shoulder, he has a prominent AC joint that is tender to palpation, exacerbated with adduction across the midline. He also has subacromial pain to palpation. His total active elevation is 155 degrees, but he does have a very painful impingement arc. His external rotation is approximately 45 degrees. He has a positive empty can, negative external rotation lag sign, negative belly press, positive Yergason, and positive Speed. Right elbow, wrist and hand are nontender. Distal neurovascular exam is intact. I reviewed his studies once again. He has not improved to his satisfaction with less invasive treatment. Thus at this point, we will take him to the operating room for a right shoulder arthroscopy direct evaluation of the long head of the biceps. If he does in fact have significant attrition, I would envision proceeding with a biceps tenotomy. We discussed at great length the deformity with which he would be left with and potential for cramping discomfort. In addition, I think we should perform an open distal clavicle resection via a sabre incision as he does have significant dorsal deformity. We will then proceed with direct evaluation of the rotator cuff or possible rotator cuff repair and subacromial decompression. We discussed at great length the surgical procedures as well as the risks and necessary rehabilitation. Questions were solicited and answered, informed consent obtained. We will proceed with surgery at some point in the near future. documented in this encounter Miscellaneous Notes * Miscellaneous - Arnold, Silk Crepe Machine Operator - 03/24/2011 11:47 AM EDT documented in this encounter Plan of Treatment Not on file documented as of this encounter Visit Diagnoses Diagnosis Rotator cuff tear- Primary Complete rupture of rotator cuff documented in this encounter Care Teams Career Counselor Relationship Specialty Start Date End Date Marquez Freed MD [address] [place] [id number] PCP - General 10/07/10 documented as of this encounter
--- OUTSIDE RECORDS SUMMARY | 2024-04-28 18:49 | XMS_ITS | Encounter Summary ---
Author Organization [facility] [address] Care Team Providers Care Public Health Doctor Name Role Phone Marquez Freed MD Primary Care Provider [phone] Encounter Details Date Type Department Care Team (Late st Contact Info) Description 12/01/2010 7:50 AM EDT Office [place] [phone] Mitch Albert PA [facility] [place] [address] Social History Tobacco Use Types Packs/Day Years Used Date Smoking Tobacco: Never Assessed Sex and Gender Information Value Date Recorded Sex Assigned at Not on file Gender Identity Not on file Sexual Orientation Not on file documented as of this encounter Plan of Treatment Not on file documented as of this encounter Visit Diagnoses Not on filedocumented in this encounter Care Teams Public Health Doctor Relationship Specialty Start Date End Date Marquez Freed MD [address] [place] [id number] PCP - General 10/07/10 documented as of this encounter
--- OUTSIDE RECORDS SUMMARY | 2024-04-28 18:49 | XMS_ITS | Encounter Summary ---
[place] [address] Care Team Providers Care Groundwater Monitoring Technician Name Role Phone Marquez Freed MD Primary Care Provider [phone] Encounter Details Date Type Department Care Team (Late st Contact Info) Description 04/08/2011 Abstract [place] [phone] Gavi Patterson, RN Social History Tobacco Use Types Packs/Day [...] on filedocumented in this encounter Care Teams Groundwater Monitoring Technician Relationship Specialty Start Date End Date Marquez Freed MD [address] [place] [id number] PCP - General 10/07/10 documented as of this encounter
--- OUTSIDE RECORDS SUMMARY | 2024-04-28 18:49 | XMS_ITS | Encounter Summary ---
Author Organization [facility] Address [facility] [place] [address] Care Team Providers Care Agriculture Intern Name Role Phone Marquez Freed MD Primary Care Provider [phone] Reason for Visit * Reason Comments Pre-op Exam L shldr - pre op Follow Up Surgery R shldr scope... DOS 7..11... DOI 06.04.09 Encounter Details Date Type Department Care Team (Late st Contact Info) Description 07/06/2011 2:00 PM EDT [place] [address] Otis Pritchard MD [facility] [place] [address] AC joint arthropathy (Primary Dx) Discharge Disposition: Home Social History [...] Sign Reading Time Taken Comments Blood Pressure 149/103 07/06/2011 2:07 PM EDT Pulse 75 07/06/2011 2:07 PM EDT Temperature - - Respiratory Rate - - Oxygen Saturation 97% 07/06/2011 2:07 PM EDT Inhaled Oxygen Concentration - - Weight 90.7 kg (200 lb) 07/06/2011 2:07 PM EDT Height 170.2 cm (5' 7) 07/06/2011 2:07 PM EDT Body Mass Index 31.32 07/06/2011 2:07 PM EDT documented in this encounter Patient Instructions * Patient Instructions* SalvadorJamison, OIL DRILLING ENGINEER - 07/06/2011 2:07 PM EDT Welcome to [employer], your secure online access to your electronic medical record at [facility]. Using [employer] you will be able to send messages to your providers, view your test results, renew prescriptions, schedule appointments, and much more. Follow these instructions to enter your personal [employer] account for the first time: 1. Start your internet browser. Go to [email or web address] and click on the [employer] link. 2. Click SIGN UP NOW to go to the NEW MEMBER SIGN UP page. 3. Enter your [employer] Access Code exactly as it appears below. (You will not need this access code after you have completed the sign-up process.) ?? Your [employer] Access Code: [email or web address] ?? Expires: 08/20/11 02:07 PM ?? IMPORTANT: This Access Code will on the above mentioned date. If you do not sign up before this date, you will need to request a new Access Code number. 4. Enter your Date of (mm/dd/yyyy) and zip code click SUBMIT to go to the next page. 5. Create a [employer] identification (ID). This will be your [employer] login ID and cannot be changed, so think of one that is secure and easy to remember. 6. Create a password which you can change at any time. Your password must contain six (6) letters and two (2) numbers. 7. Enter your Password Reset Question and Answer. This will be used if you forget your password. 8. Enter your e-mail address. This is used to let you know when new information is available in [employer]. 9. Click SIGN UP to complete the process. You can now view your electronic medical record. If you have any questions about [employer] or your Access Code, please call for [place], for [place] or for [place]. If you need technical support, please e-mail [email or web address]. Remember, [employer] is NOT for urgent needs! Always dial 911 for medical emergencies. documented in this encounter Progress Notes * Otis Pritchard MD - 07/06/2011 2:48 PM EDT Mr. Colorado returns three and a half months status post a RIGHT shoulder open distal clavicle resection with acromioplasty and debridement. He feels that he is doing very well on the right side and is able to carry out virtually normal activities on the right. However, now he complains of increasing pain on the left side. I previously imaged him with an MRI, which did confirm the presence of a left AC arthropathy as well as diffuse degenerative change of the rotator cuff. Clinical examination of the LEFT shoulder is consistent with left AC arthropathy as well as at least impingement and partial-thickness rotator cuff tear versus a full-thickness rotator cuff tear. In addition, he has long head of the biceps tendinitis. PLAN: We had a long discussion regarding the current situation. He would very much like to proceed with surgery on the left side, as he has been doing exercises on both sides without a significant improvement in his left-sided symptoms. Thus, we discussed the surgical procedure involved with a LEFT open distal clavicle resection followed by a left shoulder arthroscopy for debridement, possible rotator cuff repair, and subacromial decompression. Again, we will also look at his long head of the biceps to determine whether or not he would benefit by a biceps tenodesis. Questions were solicited and answered. Informed consent obtained. We will proceed with surgery at some point in the near future. documented in this encounter Miscellaneous Notes * Miscellaneous - Bren Barrett - 07/10/2011 9:10 AM EDT documented in this encounter Plan of Treatment Not on file documented as of this encounter Visit Diagnoses Diagnosis AC joint arthropathy- Primary Unspecified disorder of shoulder joint documented in this encounter Care Teams Agriculture Intern Relationship Specialty Start Date End Date Marquez Freed MD [address] [place] [id number] PCP - General 10/07/10 documented as of this encounter
--- OUTSIDE RECORDS SUMMARY | 2024-04-28 18:49 | XMS_ITS | Encounter Summary ---
Author Organization [facility] [place] [address] Care Team Providers Care Distribution Accounting Clerk Name Role Phone Marquez Freed MD Primary Care Provider [phone] Encounter Details Date Type Department Care Team (Late st Contact Info) Description 03/24/2011 7:30 AM EDT - 03/24/2011 9:58 AM EDT Surgery [facility] [place] [address] Otis Pritchard MD [facility] [place] [address] ARTHROSCOPY SHOULDER DEBRIDEMENT EXTENSIVE (WRVU 7.98) Social History Tobacco Use Types Packs/Day Years [...] Sign Reading Time Taken Comments Blood Pressure 130/76 03/24/2011 9:54 AM EDT Pulse 63 03/24/2011 9:54 AM EDT Temperature 36.6 ??C (97.9 ??F) 03/24/2011 9:54 AM ED T Respiratory Rate 20 03/24/2011 9:54 AM EDT Oxygen Saturation 99% 03/24/2011 7:22 AM EDT Inhaled Oxygen Concentration - - Weight 95.3 kg (210 lb) 03/24/2011 6:15 AM EDT Height 167.6 cm (5' 6) 03/24/2011 6:15 AM EDT Body Mass Index 33.89 03/24/2011 6:15 AM EDT documented in this encounter Discharge Instructions * Discharge Instructions* Aurea Cuenca RN - 03/24/2011 10:21 AM EDT General Anesthesia Discharge Instructions Go [...] goes away in 12 - 24 hours. [facility] [place] 8:00-5:30 [facility] 29/03 ask for your doctor rehabilitation engineer You received a dose of your postoperative pain medication oxycontin cr 10 mg @ 10 am next dose 10 pm Oxycodone 5 mg 2 tablets = 10 mg @ 10 am ... next dose in 4 hours * Patient Instructions* Gilberto Rizvi - 03/23/2011 9:21 PM EDT Surgery: Right Subacromial decompression and open distal clavicle resection Activity: Keep your sling on at all times. You may move your elbow and wrist in front of your body,and you may use your hand at waist level for activities of daily living. You should not move the shoulder until you are told to do so by your Surgeon. Diet: Resume normal diet, but increase your intake of fluids and fiber while you are on narcotic pain meds to prevent constipation Driving: No, not until you are cleared to do so by your Orthopedic surgeon. Ideally you should not drive if you are on narcotic pain meds as these can affect your judgement and reaction time. Call your surgeon with any questions. Medication: 1. The pain medication that you are using can cause constipation, so make sure you increase your intake of fluids and fiber while you are on them. You should also take the stool softener that was ordered, sennakot, to factilitate a bowel movement. An vujb-wyv-hllzzpl medication, miralax can also beused if needed 2. If you need a renewal on your narcotic pain medication, you need to give the Orthopedic clinic enough time to process your request. This can take up to three days, so plan accordingly. 3. The charts below will let you know of any medication changes that might have occured during yourhospital stay. You may need to review some of these with your PCP: Shower: Sponge bath only. Wound: Keep your incision clean and dry. You may change your dressing in 72 hours as needed, and you should keep the wound covered with a dry sterile dressing until your follow up appointment. Call your doctor (#[phone]) if: You have a fever > 101.5 or experience chills Increased discharge from the incision Any redness or swelling around the incision Increased pain or change in the pain that is not controlled by your pain meds Post Surgical Pain Medication For: Dale [place] Narcotic Pain Medications: Oxycodone 10mg Sustained Release (OxyContin): This medication works to give you a continuous level of pain medication. This medication should be taken on schedule, twice a day for three days, and then at bedtime for three days.Your shoulder and arm will probably still be numb from the ???block?? anesthesia when you get home from the hospital, but take the first dose at bedtime. This medication works for twelve hours, but doesn???t start to work for at least three hours, so you won???t feel anything for a while after you take it. Oxycodone 5mg: This medication works to give you short-term relief of pain. After the block wears off, take one or two tablets every four to six hours as you need them. This medication takes effect quickly, and reaches its maximum effect in an hour. Narcotic pain medications act in the central nervous system to relieve pain. We expect that after surgery, you will only be on these medications for a short time. The most common side effects of narcotic pain medications are nausea and constipation. If you are experiencing nausea or vomiting, please call us right away. To avoid constipation, drink plenty of fluids, eat a high fiber diet with plenty of fruits and vegetables, and take a stool softener (see below). If you do become constipated, make sure you let the nurse know as soon as possible so that it can be taken care of quickly. Please remember that these medications are for after your surgery only. Your pain medications must be kept in a secure place, preferably locked. Medications or prescriptions lost or stolen or taken ahead of time will not be replaced. Also please remember that while you are taking narcotic medications you must not drive. Acetaminophen 500mg (Extra Strength Tylenol): This medication will increase the effects of the narcotic pain medication and will help you take less of them. You may also take acetaminophen before, and right up to your day of surgery. Docusate Sodium 100mg. (Colace): This will help to keep you from becoming constipated after surgery. Take one twice a day, and call the office if you have not had a bowel movement two days after yoursurgery. documented in this encounter Medications at Time of Discharge Medication Sig Dispensed Refills Start Date End Date docusate sodium (COLACE) 100 mg capsule Take 1 capsule by mouth 2 times daily for 10 days. Please take as needed for constipation while on pain medication after surgery. 20 capsule 0 03/24/2011 04/03/2011 acetaminophen (TYLENOL) 500 mg tablet Take 1 tablet by mouth every 8 hours as needed for Pain for 10 days. Do not go over 3000 mg of acetaminophen in a 24 hours 60 tablet 1 03/24/2011 04/03/2011 OXYcodone (OXYCONTIN) 10 mg CR tablet Take 1 tablet by mouth. Take one tablet every 12 hours for the first 3 days; then Take one tablet every 24 hours for the next 3 days. 9 tablet 0 03/24/2011 04/17/2011 OXYcodone (ROXICODONE) 5 mg immediate release tablet Take 1-2 tablets by mouth every 4 hours as needed for Pain. Medication may cause constipation 90 tablet 0 03/24/2011 04/17/2011 multivitamin (THERAGRAN) tablet Take 1 tablet by mouth daily. 12/15/2011 documented as of this encounter Progress Notes * Aurea Cuenca RN - 03/24/2011 7:22 AM EDT Block complete, pt continues to be awake. * Aurea Cuenca RN - 03/24/2011 7:09 AM EDT Begin block documented in this encounter H&P Notes * Otis Pritchard MD - 03/24/2011 7:12 AM EDT NO CHANGE Source Note - Provider, Scanning - 03/06/2011 9:40 AM EDT * Provider, Scanning - 03/06/2011 9:40 AM EDT documented in this encounter Miscellaneous Notes * Miscellaneous - Provider, Scanning - 03/25/2011 7:39 AM EDT * Miscellaneous - Provider, Scanning - 03/24/2011 1:59 PM EDT * Op Note - Otis Pritchard MD - 03/24/2011 9:36 AM EDT DATE OF PROCEDURE: 03/24/2011 SURGEON: Otis Pritchard M.D. ASSISTANTS: Gilberto Rizvi M.D. JOSSELINE Hawley PREOPERATIVE DIAGNOSES: 1. Right symptomatic acromioclavicular arthropathy. 2. Right rotator cuff tear. 3. Right long head of the biceps tendinitis. POSTOPERATIVE DIAGNOSES: 1. Right acromioclavicular arthropathy. 2. Diffuse degenerative change, glenoid labrum. 3. Articular side partial-thickness rotator cuff tear, less than 10% thickness. PROCEDURES PERFORMED: 1. Right open distal clavicle resection (1 cm) (74015). 2. Right shoulder arthroscopy with extensive debridement (80521). 3. Right arthroscopic bursectomy and acromioplasty (06871). 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 He has had many years of bilateral shoulder pain. His right shoulder has become much worse than the left. This has been refractory to less invasive treatment consisting of antiinflammatory medication, physical therapy, injections, and avoidance of provocative activity. His clinical examination and radiographic studies are consistent with at least a partial-thickness rotator cuff tear, as well as symptomatic AC arthropathy, and long head of the biceps tendinitis. In light of the fact, he is not improved to his satisfaction with less invasive treatment, he is taken to the operating room at this time for the above mentioned procedure. OPERATIVE FINDINGS AND OPERATIVE PROCEDURE: The patient underwent a right shoulder supraclavicular block in the induction area. He was then transferred to the operating room, where a time-out was performed as per [facility] [place]. He was then placed under general endotracheal anesthesia in a modified beach chair position, head and neck protected throughout positioning. At that point, his right shoulder and arm were prepped and draped in the usual sterile fashion. He was given 2 g of IV Kefzol prophylaxis. At that point a sabre approach was made to the distal clavicle. It was carried down through skin and subcutaneous tissue and hemostasis was obtained where necessary using cautery. The deltotrapezial fascia was opened longitudinally over the dorsum of the distal clavicle in the AC joint. Jaskaran retractors were placed. At that point, an oscillating saw was used to remove the distal 1 cm of clavicle without difficulty. At that point, the undersurface was rasped to a smooth contour. The wound was then copiously irrigated with bacitracin solution. The deltotrapezial fascia was closed using vmboeo-lw-tarbf sutures of #2 Ethibond. Subcutaneous tissue was closed using simple interrupted sutures of 3-0 Vicryl and the skin was closed with running subcuticular suture of 3-0 Monocryl. At that point, gloves and gowns were changed. The shoulder was reprepped. I then introduced a 30-degree bevelled arthroscope. Anteroinferior portal was established under direct vision outside-in technique and a cannula placed. We had excellent visualization. A diffuse degenerative fraying of the free edge of the glenoid was debrided back to a stable base. The biceps and ankle anchor was stable. There was inflammatory change of the long head of the biceps with no significant tendinopathy. The articular side of the rotator cuff was well visualized, and there was diffuse fraying especially in the watershed area of the crescent of the supraspinatus. This was debrided back to a stable base, but there was virtually no footprint exposed. This position was marked for evaluation on the bursal side. After satisfactory intraarticular debridement, the instruments were placed in the subacromial position. He had significant bursitis, a bursectomy was performed with an ArthroCare wand and a shaver. At that point, we had excellent visualization of the bursal side of the rotator cuff, which was intact. The arthroscope was then placed in the lateral subacromial position, and an arthroscopic acromioplasty was performed with a 4.0 oval bur in a cutting block technique. He did have a very large anterior spur. The shoulder was then copiously irrigated via inflow and outflow portals. The instruments were removed. Portals were closed using subcuticular sutures of 3-0 Monocryl and Steri-Strips. Bulky shoulder dressing was placed, ABD in the axilla, and shoulder immobilizer. The patient tolerated the procedure well and was taken to the recovery room in satisfactory condition. * OR Attestation - Otis Pritchard MD - 03/24/2011 9:35 AM EDT I was the attending physician supervising the resident in the above care and I was present with theresident for the maldonado component(s) of the procedure and remained immediately available throughout the remainder. documented in this encounter Plan of Treatment Not on file documented as of this encounter Procedures Procedure Name Priority Date/Time Associated Diagnosis Comments ARTHROSCOPY SHOULDER,SUBACROMIAL DECOMPRESSION Routine 03/24/2011 2:37 PM EDT ARTHROSCOPY SHOULDER DEBRIDEMENT EXTENSIVE Routine 03/24/2011 2:37 PM EDT CLAVICULECTOMY, PARTIAL Routine 03/24/20 2:37 PM EDT CLAVICULECTOMY, PARTIAL (WRVU 7.39) 03/24/2011 7:31 AM EDT 840.4 ARTHROSCOPY SHOULDER, SUBACROMIAL DECOMPRESSION (WRVU 3) 03/24/2011 7:31 AM EDT 840.4 ARTHROSCOPY SHOULDER DEBRIDEMENT EXTENSIVE (WRVU 7.98) 03/24/2011 7:31 AM EDT 840.4 documented in this encounter Visit Diagnoses Not on filedocumented in this encounter Administered Medications Inactive Administered Medications - up to 3 most recent administrations Medication Order MAR Action Action Date Dose Rate Site fentaNYL 50mcg/mL injection 25-50 mcg, Intravenous, EVERY 5 MIN PRN, Starting on Wed03/24/11 at 1036, Until Wed03/24/11 at 1425, Pain, for breakthrough pain, Hold for respiratory rate less than 10 per minute. Maximum dose: 250 mcg over one hour., PACU Recovery, Routine Given 03/24/2011 10:25 AM EDT 25 mcg Given 03/24/2011 10:10 AM EDT 50 mcg Given 03/24/2011 10:05 AM EDT 50 mcg midazolam (VERSED) injection 0.5-2 mg 0.5-2 mg, Intravenous, Administer over 1 Days, EVERY 3 MIN PRN, Starting on Wed03/24/11 at 0703, Until Wed03/24/11 at 1425, Sleep, For procedural sedation in SDP block area, order to discontinue one patient leaves SDP block area, For procedural sedation in SDP block area, order to discontinue one patient leaves SDP block area, Day of Surgery (Day of Procedure), Routine New Bag 03/24/2011 7:15 AM EDT 1 mg mL/hr New Bag 03/24/2011 7:08 AM EDT 1 mg mL/hr OXYcodone (ROXICODONE) immediate release tablet 5-15 mg 5-15 mg, Oral, EVERY 3 HOURS PRN, Starting on Wed03/24/11 at 0954, Until Wed03/24/11 at 1425, Pain, Routine Given 03/24/2011 10:15 AM EDT 10 mg triamcinolone acetonide (KENALOG) injection ONCE PRN, 1 dose, Starting on Wed03/24/11 at 0918, Until Wed03/24/11 at 0918, Intra-Operative (Intra-Procedure), Routine Given 03/24/2011 9:18 AM EDT 5 mg 19- Surgical Site documented in this encounter Active and Recently Administered Medications Times are shown in EDT. PRN Medication Order 03/22/2011 03/23/2011 03/24/2011 fentaNYL 50mcg/mL injection (CANCELED) 25-50 mcg, Intravenous, EVERY 5 MIN PRN, Starting on Wed03/24/11 at 1036, Until Wed03/24/11 at 1425, Pain, for breakthrough pain, Hold for respiratory rate less than 10 per minute. Maximum dose: 250 mcg over one hour., PACU Recovery, Routine 1005 (Given - Provid er: Aurea Cuenca RN)1010 (Given - Provider: Aurea Cuenca RN)1025 (Given - Provider: Aurea Cuenca RN) midazolam (VERSED) injection 0.5-2 mg (CANCELED) 0.5-2 mg, Intravenous, Administer over 1 Days, EVERY 3 MIN PRN, Starting on Wed03/24/11 at 0703, Until Wed03/24/11 at 1425, Sleep, For procedural sedation in SDP block area, order to discontinue one patient leaves SDP block area, For procedural sedation in SDP block area, order to discontinue one patient leaves SDP block area, Day of Surgery (Day of Procedure), Routine 0708 (New Bag - Prov ider: Aurea Cuenca RN)0715 (New Bag - Provider: Aurea Cuenca RN) OXYcodone (ROXICODONE) immediate release tablet 5-15 mg (CANCELED) 5-15 mg, Oral, EVERY 3 HOURS PRN, Starting on Wed03/24/11 at 0954, Until Wed03/24/11 at 1425, Pain, Routine 1015 (Given - Provid er: Aurea Cuenca RN) triamcinolone acetonide (KENALOG) injection (COMPLETED) ONCE PRN, 1 dose, Starting on Wed03/24/11 at 0918, Until Wed03/24/11 at 0918, Intra-Operative (Intra-Procedure), Routine 0918 (Given - Provid er: Otis Pritchard MD) documented in this encounter Care Teams Distribution Accounting Clerk Relationship Specialty Start Date End Date Marquez Freed MD [address] [place] [id number] PCP - General 10/07/10 documented as of this encounter
--- OUTSIDE RECORDS SUMMARY | 2024-04-28 18:49 | XMS_ITS | Encounter Summary ---
Author Organization [facility] [place] [address] Care Team Providers Care Polysomnography Tech Name Role Phone Marquez Freed MD Primary Care Provider [phone] Reason for Visit * Reason Comments Right Shoulder Pain DOI 06/04/09 DOS 03/24 Encounter Details Date Type Department Care Team (Late st Contact Info) Description 05/18/2011 1:00 PM EDT [place] [address] Otis Pritchard MD [facility] [place] [address] RCT (rotator cuff tear) (Primary Dx) Discharge [...] Progress Notes * Otis Pritchard MD - 05/18/2011 1:45 PM EDT CLARIFICATION NEEDED: PLEASE FILL IN THE BLANK. ORTHOPEDIC NOTE Mr. Colorado returns seven weeks status post the right shoulder open distal clavicle resection and a left shoulder arthroscopy with debridement for a low-grade PASTA lesion and diffuse tendinopathy as well as some glenohumeral arthritis. He feels that he is improving significantly. He feels that it is primarily related to the distal clavicle resection. He has had no fevers or chills. He is working in therapy. Examination today, Neuro/Musculoskeletal Exam: His right shoulder wounds have healed kindly. No evidence of infection. His total active elevation is approximately 150 degrees. He is very tight at end range. His external rotation is only 40 degrees. His distal neurovascular exam is intact. The right shoulder we reviewed is intraoperative photographs. I thinks he understands the pathology. Our plan for the right shoulder is to continue his therapy and also to take an anti-inflammatory medication. In addition, he continues to complain of pain in his left shoulder. It is similar on clinical examination with the primary tenderness being at the left AC joint. In addition, he has bilateral carpal tunnel syndrome. PLAN: At this point, we discussed how to proceed. He is very anxious to have his left shoulder addressed as well. *------* plan today I will do the computer work to have him schedule for a Left open distal clavicle resection followed by an arthroscopy and possible rotator cuff repair. He does understand that at some point it may need median nerve decompressions. I will plan to see him back in six weeks at which point we can hopefully get consent for his left shoulder. He knows to call me if he has any questions or changes prior to that time. documented in this encounter Plan of Treatment Not on file documented as of this encounter Procedures Procedure Name Priority Date/Time Associated Diagnosis Comments CLAVICULECTOMY, PARTIAL Routine 05/18/2011 2:13 PM EDT documented in this encounter Results * (ABNORMAL) CBC (with Diff) (12/15/2011 11:44 [...] Lab Otis Pritchard MD HEMATOLOGY ORDERABLE S ALEENA FREEDMAN documented in this encounter Visit Diagnoses Diagnosis RCT (rotator cuff tear)- Primary Complete rupture of rotator cuff documented in this encounter Care Teams Polysomnography Tech Relationship Specialty Start Date End Date Marquez Freed MD [address] [place] [id number] PCP - General 10/07/10 documented as of this encounter
--- OUTSIDE RECORDS SUMMARY | 2024-04-28 18:49 | XMS_ITS | Encounter Summary ---
Author Organization [facility] [place] [address] Care Team Providers Care Mechanical Development Engineer Name Role Phone Marquez Freed MD Primary Care Provider Encounter Details Date Type Department Care Team (Late st Contact Info) Description 03/05/2011 10:00 AM EDT Follow-[place] [id number] DR [address] Discharge Disposition: Home Social History Tobacco Use [...] on filedocumented in this encounter Care Teams Mechanical Development Engineer Relationship Specialty Start Date End Date Marquez Freed MD [address] [place] [id number] PCP - General 10/07/10 documented as of this encounter
--- OUTSIDE RECORDS SUMMARY | 2024-04-28 18:49 | XMS_ITS | Encounter Summary ---
Author Organization [place] [address] Care Team Providers Care Radio Aerial Installer Name Role Phone Marquez Freed MD Primary Care Provider [phone] Encounter Details Date Type Department Care Team (Late st Contact Info) Description 11/21/2010 2:00 PM EDT [place] [id number] Mitch Albert PA [facility] [place] [address] Discharge Disposition: Home Social History Tobacco Use [...] on filedocumented in this encounter Care Teams Radio Aerial Installer Relationship Specialty Start Date End Date Marquez Freed MD [address] [place] [id number] PCP - General 10/07/10 documented as of this encounter
--- OUTSIDE RECORDS SUMMARY | 2024-04-28 18:49 | XMS_ITS | Encounter Summary ---
Author Organization [place] [address] Care Team Providers Care Director Of Guidance Name Role Phone Michael Bell MD Primary Care Provider [phone] Encounter Details Date Type Department Care Team (Latest Contact Info) Description 10/06/2010 11:30 AM EST - 10/06/2010 4:10 PM [facility] [place] [address] Malini Santiago MD [facility] [place] [address] Discharge Disposition: Home Social History Tobacco Use [...] in this encounter Care Teams Director Of Guidance Relationship Specialty Start Date End Date Michael Bell MD [address] [place] [address] [place] [address] PCP - General 10/02/10 10/06/10 documented as of this encounter
--- OUTSIDE RECORDS SUMMARY | 2024-04-28 18:49 | XMS_ITS | Encounter Summary ---
[place] [address] Care Team Providers Care Coal Digger Name Role Phone Marquez Freed MD Primary Care Provider [phone] Reason for Visit * Reason Onset Date Comments Medication Refill 04/17/2011 Encounter Details Date Type Department Care Team (Late st Contact Info) Description 04/17/2011 [place] [address] Shira Butler, RN Social History Tobacco Use Types Packs/Day [...] on filedocumented in this encounter Care Teams Coal Digger Relationship Specialty Start Date End Date Marquez Freed MD [address] [place] [id number] PCP - General 10/07/10 documented as of this encounter
--- OUTSIDE RECORDS SUMMARY | 2024-04-28 18:49 | XMS_ITS | Encounter Summary ---
Author Organization [facility] [place] [address] Care Team Providers Care Mold Worker Name Role Phone Marquez Freed MD Primary Care Provider [phone] Encounter Details Date Type Department Care Team (Latest Contact Info) Description 03/24/2011 6:02 AM EDT - 03/24/2011 11:54 AM EDT Hospital Encounter [place] [address] Otis Pritchard MD [facility] DR ORTHOPA[place] [address] Discharge Disposition: Home Social History Tobacco Use [...] Sign Reading Time Taken Comments Blood Pressure 152/88 03/24/2011 10:31 AM EDT Pulse 77 03/24/2011 10:31 AM EDT Temperature 36.6 ??C (97.9 ??F) 03/24/2011 9:54 AM ED T Respiratory Rate 20 03/24/2011 10:31 AM EDT Oxygen Saturation 96% 03/24/2011 10:31 AM EDT Inhaled Oxygen Concentration - - [...] goes away in 12 - [address] [facility] [place] 8:00-5:30 [facility] 29/03 ask for your doctor manager concrete You received a dose of your postoperative [...] sennakot, to factilitate a bowel movement. An vbrj-tgj-hbeorti medication, miralax can also beused if needed [...] your follow up appointment. Call your doctor (#[phone]) if: You have a fever > 101.5 [...] Right open distal clavicle resection (1 cm) (85347). 2. Right shoulder arthroscopy with extensive debridement (36789). 3. Right arthroscopic bursectomy and acromioplasty (42608). 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 He has had many years of bilateral [...] where a time-out was performed as per [facility] protocol. He was then placed under general [...] solution. The deltotrapezial fascia was closed using lbmrud-av-kduqg sutures of #2 Ethibond. Subcutaneous tissue was [...] Given 03/24/2011 10:15 AM EDT 10 mg documented in this encounter Active and Recently [...] Until Wed03/24/11 at 0918, Intra-Operative (Intra-Procedure), Routine 917 (Given - Provid er: Otis Pritchard MD) documented in this encounter Care Teams Mold Worker Relationship Specialty Start Date End Date Marquez Freed MD [address] [address] PCP - General 10/07/10 documented as of this encounter
--- OUTSIDE RECORDS SUMMARY | 2024-04-28 18:49 | XMS_ITS | Encounter Summary ---
Author Organization [facility] [place] [address] Care Team Providers Care Master Control Technician Name Role Phone Marquez Freed MD Primary Care Provider [phone] Reason for Visit * Reason Onset Date Comments Other 03/12/2011 Encounter Details Date Type Department Care Team (Late st Contact Info) Description 03/12/2011 [place] [phone] Velia Costello MSW Other Social History Tobacco Use Types Packs/Day [...] Telephone Encounter - Velia Costello MSW - 03/12/2011 3:46 PM EDT [facility] SOCIAL WORK CONTINUING PLATFORM ARCHITECT INSURANCE COMAPANY: [facility] CONTACT: Leslie Hameed PHONE:[phone] CALL TO: Patient and NCM REASON FOR CALL:At the request of Ortho director of surgery CCM called patient to verify that everything is in place for pt's upcomming surgery. Pt's will provide transportation and assistance post operatively. PLAN: [facility] verified with [facility] that everything is in place to pt's surgery. documented in this encounter Plan of Treatment Not on file documented as of this encounter Visit Diagnoses Not on filedocumented in this encounter Care Teams Master Control Technician Relationship Specialty Start Date End Date Marquez Freed MD [address] [place] [id number] PCP - General 10/07/10 documented as of this encounter
--- OUTSIDE RECORDS SUMMARY | 2024-04-28 18:49 | XMS_ITS | Encounter Summary ---
Author Organization [facility] Address [facility] [place] [address] Care Team Providers Care Stenciler Name Role Phone Michael Bell MD Primary Care Provider [phone] Encounter Details Date Type Department Care Team (Latest Contact Info) Description 10/06/2010 11:02 AM EST - 10/06/2010 11:59 PM [facility] Hospital Encounter XRay at [address] [place] [address] Malini Santiago MD [facility] [place] [address] Discharge Disposition: Home Social History Tobacco Use [...] on filedocumented in this encounter Care Teams Stenciler Relationship Specialty Start Date End Date Michael Bell MD [address] [place] [address] [place] [address] PCP - General 10/02/10 10/06/10 documented as of this encounter
--- OUTSIDE RECORDS SUMMARY | 2024-04-28 18:49 | XMS_ITS | Encounter Summary ---
Author Organization [facility] Address [facility] Christine [facility] [place] [address] Care Team Providers Care Executive Account Manager Name Role Phone Marquez Freed MD Primary Care Provider [phone] Reason for Visit * Reason Comments Bilateral Shoulder Pain R>L, ? CTS Encounter Details Date Type Department Care Team (Late st Contact Info) Description 01/15/2011 1:00 PM EDT [place] [address] Sofie Pritchard MD [facility] [place] [address] Rotator cuff (capsule) sprain (Primary Dx) Discharge Disposition: Home Social History Tobacco Use Types Packs/Day Years Used Date Smoking Tobacco: Never Assessed Sex and Gender Information Value Date Recorded Sex Assigned at Not on file Gender Identity Not on file Sexual Orientation Not on file documented as of this encounter Progress Notes * Sofie Pritchard MD - 01/15/2011 2:13 PM EDTAddended by: SOFIE PRITCHARD on: 01/15/2011 Modules accepted: Orders * Sofei Pritchard MD - 01/15/2011 2:03 PM EDT Mr. Colorado is a 40-year-old white male, who is a right-handed nicole. He is seen in consultation at the request of Dr. Marquez Freed. I had actually seen him many years ago, approximately 10 years ago for shoulder pain. We sought no operative intervention at that time. He reports that he has had increasing pain in both arms and shoulders over the past three years. He has had occasional numbness in his right hand, but primarily bothered by numbness in his left hand. He has been extensively worked up by JOSSELINE Reed, and also Dr. Savi Rosas. He was found to have left carpal tunnel syndrome. MRIs were performed, which showed bilateral AC arthropathy, as well as at least a high-grade partial-thickness tear of the right supraspinatus and possibly subscapularis. He has had multiple injections with only transient improvement. His primary complaint is that of pain in the right shoulder. He has also lost range of motion and strength, and again he has occasional numbness in his right hand. He also has increased right elbow pain with any gripping activities. REVIEW OF SYSTEMS: No history of peptic ulcer disease or diabetes. He does have hypertension. No rheumatoid arthritis, gout, or cancer. He does not smoke recent weight loss, fevers, chills, or other evidence of systemic illness. Medication list was verified. ALLERGIES: SULFA. PRIOR SURGERIES: [facility]. He also had surgery on an anal fissure and a circumcision. PHYSICAL EXAMINATION: In general, a well developed, well nourished, obese white male, in no acute distress. Cardiovascular Exam: Regular rate and rhythm by palpation. Neuro/Musculoskeletal exam: Neck: No midline tenderness. Marked decreased range of motion. No true radicular symptoms. His right shoulder, he is a very large man, I seen no obvious atrophy or winging of the scapula. He is tender to palpation at the AC joint, exacerbated with adduction across the midline. He also has subacromial pain to palpation. Total active elevation 160 degrees. He has a painful impingement arch. Positive impingement 1, positive impingement 2, positive empty- can. Negative external rotation lag sign, negative belly-press, positive Yergason's, positive Speed. Right elbow lacks 15 degrees of full extension. No medial pain. He does have lateral epicondylar pain exhausted with elbow extension and wrist extension against resistance. His wrist and hand are nontender today. Distal neurovascular exam is intact. I have reviewed bilateral shoulder MRIs, and I have reviewed as well as x rays and also EMG nerve conduction studies by Dr. Rosas. IMPRESSION: 1. Right shoulder acromioclavicular arthropathy - symptomatic. 2. Right partial-thickness rotator cuff tear with significant bursitis and tendinopathy. 3. Right long head of the biceps tendinitis. 4. Right lateral epicondylitis. PLAN: This is a counseling dominating encounter of 40 minutes in length. I personally spent 30 minutes in direct discussion with Mr and Mrs. [place]. The remaining time was spent reviewing his extensive history and his studies. At this point, he has informed me that he would like to consider surgery sometime in April. Thus, we will schedule him for a right shoulder arthroscopy, direct evaluation of the long head of the biceps, possible biceps tenotomy if that remain symptomatic. But also then proceed with rotator cuff repair, acromioplasty, and distal clavicle resection. We also did discuss that at some point he may wish to have a repeat injection of his right lateral epicondylar region. I will plan to see him for a preoperative visit or sooner p.r.n. documented in this encounter Plan of Treatment Scheduled Orders Name Type Priority Associated Diagnoses Orde r Schedule CBC (with Diff) Lab Routine Rotator cuff (capsule) sprain and strain Expected: 02/14/2011 (Approximate), Expires: 01/16/2012 documented as of this encounter Visit Diagnoses Diagnosis Rotator cuff (capsule) sprain- Primary documented in this encounter Care Teams Executive Account Manager Relationship Specialty Start Date End Date Marquez rFeed MD [address] [place] [address] PCP - General 10/07/10 documented as of this encounter
--- OUTSIDE RECORDS SUMMARY | 2024-04-28 18:49 | XMS_ITS | Encounter Summary ---
Author Organization [facility] Address [facility] [place] [address] Care Team Providers Care Helicopter Crew Chief Name Role Phone Michael Bell MD Primary Care Provider [phone] Encounter Details Date Type Department Care Team (Latest Contact Info) Description 10/06/2010 3:14 PM EST - 10/06/2010 11:59 PM EST Hospital Encounter XRay at [address] [place] [address] CLINIC, Malini Becker MD [facility] [place] [address] Discharge Disposition: Home Social History Tobacco Use [...] on filedocumented in this encounter Care Teams Helicopter Crew Chief Relationship Specialty Start Date End Date Michael Bell MD [address] [place] [address] [place] [address] PCP - General 10/02/10 10/06/10 documented as of this encounter
--- OUTSIDE RECORDS SUMMARY | 2024-04-28 18:49 | XMS_ITS | Encounter Summary ---
Author Organization [facility] [place] [address] Care Team Providers Care Stacker Driver Name Role Phone Unavailable Primary Care Provider Unavailabl e Encounter Details Date Type Department Care Team (Late st Contact Info) Description 07/01/2010 9:20 AM EDT [place] [phone] Mitch Albert PA [facility] [place] [address] Social History Tobacco Use Types Packs/Day Years [...]
--- OUTSIDE RECORDS SUMMARY | 2024-04-28 18:49 | XMS_ITS | Encounter Summary ---
Author Organization [facility] [place] [address] Care Team Providers Care Lapel Baster Name Role Phone Marquez Freed MD Primary Care Provider [phone] Reason for Visit * Reason Onset Date Comments Other 02/16/2011 Encounter Details Date Type Department Care Team (Late st Contact Info) Description 02/16/2011 Telephone [place] [phone] Social, Worker, SIDE PANEL PADDER Other Social History Tobacco Use Types Packs/Day Years Used Date Smoking Tobacco: Never Assessed Sex and Gender Information Value Date Recorded Sex Assigned at Not on file Gender Identity Not on file Sexual Orientation Not on file documented as of this encounter Miscellaneous Notes * Telephone Encounter - Ana Otero MSW - 02/16/2011 5:36 PM EDT [facility] received correspondence from ortho staff re: pt's upcoming 03-24-11 ortho surgery w/ and the authorization for such. Covering for ortho pet care technician:Velia Costello this week, so [facility] contacted NCM: Leslie Zari to confirm the authorization for the 03-24 surgery, and to question pt's awareness of such. confirmed both, noting that she spoke w/ pt today. CCM f/u w/ Lizabeth Meza, chencho OR coordinator re: the above. P: [facility] CCM will be available for f/u intervention as needed, collaborating w/ primary ortho pet care technician: Ms. Costello as needed. documented in this encounter Plan of Treatment Not on file documented as of this encounter Visit Diagnoses Not on filedocumented in this encounter Care Teams Lapel Baster Relationship Specialty Start Date End Date Marquez Freed MD [address] [place] [address] PCP - General 10/07/10 documented as of this encounter
--- OUTSIDE RECORDS SUMMARY | 2024-04-28 18:49 | XMS_ITS | Encounter Summary ---
Author Organization [facility] Address [facility] [place] [address] Care Team Providers Care Aircraft Loadmaster Superintendent Name Role Phone Marquez Freed MD Primary Care Provider [phone] Reason for Referral * Physical Therapy (Routine) - Complete - Patient Will Schedule External Appt Specialty Diagnoses / Procedures Referred By Faustino connors Referred To Contact Physical Therapy Diagnoses Follow-up examination following surgery [facility] [address] [place] [address] Referral ID Status Reason Start Date Expiration Date Visits Requested Visits Authorized [id number] Complete - Patient Will Schedule External Appt Evaluate and Treat 04/09/2011 10/06/2011 1 1 Reason for Visit * Reason Comments Right Shoulder Pain R shldr scope, dos 0 03/24/11 Encounter Details Date Type Department Care Team (Late st Contact Info) Description 04/09/2011 11:20 AM EDT Office [place] [address] Mitch Albert PA [facility] [place] [address] Follow-up examination following surgery, right shoulder arhtroscopy [...] Progress Notes * Mitch Albert PA - 04/09/2011 11:52 AM EDT Subjective: Patient ID: Dale [place] is a 40 y.o. male. HPI Dale is here for /fu of his right shoulder arthroscopy, 03/24/[address] Pritchard. This included 1. Right open distal clavicle resection, Right shoulder arthroscopy with extensive debridement and Right arthroscopic bursectomy and acromioplasty. He is doing well. In sling since surgery, has not started therapy (scheduled). ROSDenies fever, chills, nausea, vomiting, diahrrhea, pain is minimal and well tolerated, no refillof pain medication needed per Dale. Paresthesias are negative. Objective: Physical Exam Awake, alert, oriented to person, place, time, NAD, afebrile, hemodynamically stable.Comfortable in the exam room. Ortho Exam right shoulder - benign in appearance, No erythema, edema, bogginess, fluctuance, drainage, induration, or ecchymosis. steristrips removed, suture trimmed, steristrips replaced. Neurologic Exam shoulder, arm, and hand is sensate, well perfused, distal pulses are 2+ and equal. Assessment and Plan: No problem-specific visit notes found for this encounter. A: 2 weeks s/p right shoulder scope, doing well. P: begin therapy, may stop sling, may shower - no soaking for 1 week. No weight bearing. May drive tomorrow. Return in 1 month for f/u with Dr Pritchard. Pt agrees, questions solicited/answered, will return as scheduled and as needed for concerns or questions. Pt understands they may also call us prnfor above. documented in this encounter Plan of Treatment Scheduled Referrals Name Type Priority Associated Diagnoses Orde r Schedule REFERRAL TO PHYSICAL THERAPY Outpatient Referral Routine Follow-up examination following surgery, right shoulder arhtroscopy Ordered: 04/09/2011 documented as of this encounter Visit Diagnoses Diagnosis Follow-up examination following surgery, right shoulder arhtroscopy- Primary Follow-up examination, following unspecified surgery documented in this encounter Care Teams Aircraft Loadmaster Superintendent Relationship Specialty Start Date End Date Marquez Freed MD [address] [place] [address] PCP - General 10/07/10 documented as of this encounter
--- OUTSIDE RECORDS SUMMARY | 2024-04-28 18:49 | XMS_ITS | Encounter Summary ---
Author Organization [facility] [place] [address] Care Team Providers Care Reliability Technician Name Role Phone Marquez Freed MD Primary Care Provider [phone] Encounter Details Date Type Department Care Team (Late st Contact Info) Description 10/16/2010 7:55 AM EST Office [place] [phone] Mitch Albert PA [facility] [place] [address] Social History Tobacco Use Types Packs/Day Years Used Date Smoking Tobacco: Never Assessed Sex and Gender Information Value Date Recorded Sex Assigned at Not on file Gender Identity Not on file Sexual Orientation Not on file documented as of this encounter Plan of Treatment Not on file documented as of this encounter Visit Diagnoses Not on filedocumented in this encounter Care Teams Reliability Technician Relationship Specialty Start Date End Date Marquez Freed MD [address] [place] [address] PCP - General 10/07/10 documented as of this encounter
[2024-04-28 19:38] LABS: ALT 92 U/L (16-63); Anion Gap 7.4 mmol/L (3-11); BUN 8 mg/dL (7-18); CO2 27.6 mmol/L (21.0-32.0); CREATININE 1.3 mg/dL (0.70-1.30); Calcium 8.8 mg/dL (8.5-10.1); Calculated LDL 111 mg/dL (<100); Chloride 97 mmol/L (98-107); Cholesterol 179 mg/dL (<200); Creatine Kinase 137 U/L (39-308); Glucose 240 mg/dL (74-106); HDL Cholesterol 48 mg/dL (40-60); Potassium 4.1 mmol/L (3.5-5.1); Sodium 132 mmol/L (136-145); Triglyceride 104 mg/dL (<150)
[2024-05-01 10:05] LABS: PSA, Screening 0.5 ng/mL (<=3.5)
== END 2024-04-28 18:38 | disposition home or self-care (01) ==
LOC: NCHCN 18:37
PROVIDERS: PCP Physician Assistant; Visit Provider Internal Medicine
DX: I10 Essential (primary) hypertension (principal); E78.5 Hyperlipidemia, unspecified; Z12.5 Encounter for screening for malignant neoplasm of prostate
CPT/HCPCS: 80048; 80061; 82550; 84153; 84460

== ENCOUNTER 2025-05-03 11:29 | Outpatient (REF) | payer SELFPAY ==
[2025-05-03 19:20] LABS: ALT 87 U/L (16-63); AST 69 U/L (15-37); Albumin 3.9 g/dL (3.4-5.0); Alkaline Phosphatase 72 U/L (46-116); Anion Gap 5.5 mmol/L (3-11); BUN 8 mg/dL (7-18); Bilirubin, Total 0.5 mg/dL (0.2-1.0); CO2 28.5 mmol/L (21.0-32.0); Calcium 10.0 mg/dL (8.5-10.1); Chloride 101 mmol/L (98-107); Estimated GFR 80.27 (mL/min/1.73m2); Glucose 112 mg/dL (74-106); Potassium 4.7 mmol/L (3.5-5.1); Sodium 135 mmol/L (136-145); Total Protein 8.4 g/dL (6.4-8.2)
== END 2025-05-03 11:30 | disposition home or self-care (01) ==
LOC: NCHCN 11:29
PROVIDERS: PCP Physician Assistant; Visit Provider Internal Medicine
DX: I10 Essential (primary) hypertension (principal)
CPT/HCPCS: 80053